=== PATIENT | female | born 1975 | race Caucasian/White ===

== ENCOUNTER 2018-02-16 13:08 | Emergency (ER) | payer OTHER, SELFPAY ==
[2018-02-16 13:24] VITALS: BP 118/74; PULSE 85; RESP 18; TEMP 36.4; O2SAT 98; BMI 20.9
--- NOTE | 2018-02-16 14:51 | ED.NAVMDI ---
HPI - Nausea/Vomiting/Diarrhea <TALIA Beard - Last Filed: 02/16/18 22:09> General Chief complaint: Nausea/Vomiting/Diarrhea Stated complaint: STOMACH PROBLEMS TODAY WITH DIARRHEA Time Seen by Provider: 02/16/18 14:51 Source: patient Mode of arrival: ambulatory Limitations: no limitations History of Present Illness HPI Narrative: 42-year-old female history of anxiety and everyday smoker here for complaint of having diarrhea for the past 5 days. She reports she has also had some left lower quadrant pain and cramping during the same time frame. She denies any fevers. She does state that she did have some bloody mucus in her diarrhea yesterday. She denies any [place] blood. She reports that she knows of other contacts that have similar symptoms. She denies any recent travel. She denies being out in the [facility]. Positive p.o. intake. No nausea or vomiting. She denies any vaginal bleeding or discharge. No other concerns or complaints. Related Data Home Medications Medication Instructions Recorded Confirmed alprazolam [Xanax] 0.5 mg PO Q8HP PRN #0 11/13/12 02/16/18 escitalopram oxalate [Lexapro] 15 mg PO QDAY #0 11/13/12 02/16/18 multivitamin 1 tab PO DAILY 02/16/18 02/16/18 Previous Rx's Medication Instructions Recorded ondansetron 4 mg PO Q6-8H PRN #10 tab 02/16/18 Allergies Allergy/AdvReac Type Severity Reaction Status Date / Time Sulfa (Sulfonamide Allergy Intermediate Hives Verified 02/16/18 13:28 Antibiotics) Review of Systems <TALIA Beard - Last Filed: 02/16/18 22:09> Constitutional Denies chills, Denies fever(s), Denies lethargy and Denies weakness Eyes Denies change in vision, Denies eye discharge, Denies irritation and Denies loss of vision ENT Ears, Nose, Mouth, and Throat: Denies change in voice, Denies neck pain and Denies sore throat Cardiovascular Denies chest pain, Denies irregular heart rhythm, Denies lightheadedness, Denies palpitations, Denies dyspnea, Denies dyspnea on exertion and Denies orthopnea Respiratory Denies cough, Denies dyspnea, Denies dyspnea on exertion and Denies wheezing Gastrointestinal Gastrointestinal: Reports abdominal pain, Denies change in bowel habits, Reports diarrhea, Denies nausea and Denies vomiting Genitourinary Denies hematuria, Denies flank pain, Denies urinary incontinence and Denies urinary urgency Musculoskeletal Denies neck pain Integumentary/Breasts Denies pruritus, Denies erythema, Denies rash and Denies wounds Neurologic Denies confusion, Denies loss of vision and Denies weakness Psychiatric Denies anxiety, Denies confusion, Denies depression, Denies homicidal ideation and Denies suicidal ideation Endocrine Denies palpitations Hematologic/Lymphatic Denies easy bruising Allergic/Immunologic Denies wheezing Exam <TALIA Beard - Last Filed: 02/16/18 22:09> Initial Vital Signs Initial Vital Signs: Vital Signs Temperature 97.5 F L 02/16/18 13:24 Pulse Rate 85 02/16/18 13:24 Respiratory Rate 18 02/16/18 13:24 Blood Pressure 118/74 02/16/18 13:24 Pulse Oximetry 98 02/16/18 13:24 Const General: cooperative and well developed Nutritional Appearance: well nourished Orientation: alert, awake, oriented x3 and not confused [facility] Mouth: oral mucosae normal and moist mucous membranes Eyes Conjunctivae: conjunctivae normal Sclera: sclerae normal Pupils: PERRL EOM: EOM intact bilaterally Resp Effort & Inspection: normal respiratory effort, able to speak in complete sentences, no respiratory distress and no use of accessory muscles Auscultation: clear to auscultation bilaterally, no rales, no rhonchi and no wheezes Cardio Rate: regular rate Rhythm: regular rhythm Heart Sounds: no click, no gallops, no murmurs and no rubs Pulses: normal peripheral pulses GI Inspection: non-distended Palpation: soft, no hepatosplenomegaly, No guarding, No pulsatile mass and tender Auscultation: normal bowel sounds Other: Tenderness to lower abdomen bilaterally left greater than right General: No CVA tenderness Skin General: no rashes or lesions noted, No jaundice and No petechiae Neuro General: alert, oriented x3, gait normal and no focal motor deficits Speech: speech normal <Karina Giordano DO - Last Filed: 02/17/18 09:49> Initial Vital Signs Initial Vital Signs: Vital Signs Temperature 97.5 F L 02/16/18 13:24 Pulse Rate 85 02/16/18 13:24 Respiratory Rate 18 02/16/18 13:24 Blood Pressure 118/74 02/16/18 13:24 Pulse Oximetry 98 02/16/18 13:24 Course <TALIA Beard - Last Filed: 02/16/18 22:09> Orders Ordered: Discontinued Medications Sodium Chloride (Normal Saline 0.9%) 1,000 mls @ 1,000 mls/hr IV BOLUS ONE Stop: 02/16/18 15:35 Last Infusion: 02/16/18 15:43 Dose: 0 mls/hr Admin: 02/16/18 14:55 Dose: 1,000 mls/hr Sodium Chloride (Normal Saline 0.9%) 1,000 mls @ 1,000 mls/hr IV BOLUS ONE Stop: 02/16/18 16:43 Last Infusion: 02/16/18 18:10 Dose: 0 mls/hr Admin: 02/16/18 15:47 Dose: 1,000 mls/hr Ondansetron HCl (Zofran) 4 mg IV NOW ONE Stop: 02/16/18 16:53 Last Admin: 02/16/18 16:56 Dose: 4 mg Vital Signs - 8 hr 02/16/18 15:48 02/16/18 18:30 Temperature 97.9 F Pulse Rate 78 72 Respiratory Rate 16 14 Blood Pressure [Right Arm] 101/61 110/72 Pulse Oximetry 98 99 <Karina Giordano DO - Last Filed: 02/17/18 09:49> Orders Ordered: Discontinued Medications Sodium Chloride (Normal Saline 0.9%) 1,000 mls @ 1,000 mls/hr IV BOLUS ONE Stop: 02/16/18 15:35 Last Infusion: 02/16/18 15:43 Dose: 0 mls/hr Admin: 02/16/18 14:55 Dose: 1,000 mls/hr Sodium Chloride (Normal Saline 0.9%) 1,000 mls @ 1,000 mls/hr IV BOLUS ONE Stop: 02/16/18 16:43 Last Infusion: 02/16/18 18:10 Dose: 0 mls/hr Admin: 02/16/18 15:47 Dose: 1,000 mls/hr Ondansetron HCl (Zofran) 4 mg IV NOW ONE Stop: 02/16/18 16:53 Last Admin: 02/16/18 16:56 Dose: 4 mg Vital Signs - 8 hr 02/16/18 15:48 02/16/18 18:30 Temperature 97.9 F Pulse Rate 78 72 Respiratory Rate 16 14 Blood Pressure [Right Arm] 101/61 110/72 Pulse Oximetry 98 99 MDM - Nausea/Vomiting/Diarrhea <TALIA Beard - Last Filed: 02/16/18 22:09> Lab Data Result diagrams: 02/16/18 14:45 02/16/18 14:45 Lab Results 02/16/18 02/16/18 02/16/18 Range/Units 14:45 14:45 14:45 WBC 11.9 H (4.5-11.0) X10^3/uL RBC 4.58 (4.0-5.2) X10^6/uL Hgb 15.2 (12.0-16.0) g/dL Hct 43.4 (36-46) % MCV 94.6 (80-100) fL MCH 33.1 (26-34) PG MCHC 35.0 (30-36) % RDW 12.8 (11.6-14.8) % Plt Count 181 (150-400) X10^3/uL Neut % (Auto) 81.0 H (50-75) % Lymph % (Auto) 8.3 L (25-40) % [place] % (Auto) 10.0 (3-14) % Eos % (Auto) 0.4 L (2-4) % Baso % (Auto) 0.3 (0-2) % Neut # (Auto) 9600 H (5393-6140) /uL PT 11.7 (10.1-12.7) SECONDS INR 1.1 (0.9-1.3) APTT 27 (26.4-36.2) SECONDS Sodium 142 (137-145) mmol/L Potassium 4.3 (3.4-5.1) mmol/L Chloride 107 (98-107) mmol/L Carbon Dioxide 25 (22-32) mmol/L BUN 7 (7-17) mg/dL Creatinine 0.50 L (0.52-1.04) mg/dL Estimated GFR > 60.0 (>60) mL/min BUN/Creatinine Ratio 14.0 (6-22) Glucose 89 (70-100) mg/dL Calcium 9.5 (8.4-10.2) mg/dL Total Bilirubin 0.5 (0.2-1.3) mg/dL AST 27 (14-36) IU/L ALT 27 (9-52) IU/L Alkaline Phosphatase 59 (38-126) U/L Total Protein 7.1 (6.3-8.2) g/dL Albumin 4.4 (3.5-5.0) g/dL Globulin 2.7 (1.7-4.1) g/dL Albumin/Globulin Ratio 1.6 (1.0-2.8) Lipase 227 (23-300) U/L Stool Occult Blood (Negative) Stool Aeromonas Cult (Not Detect) Stl C. cayetanensis PCR (Not Detect) Stool Rotavirus (PCR) (Not Detect) Stool Adenovirus (PCR) (Not Detect) Stool Astrovirus (PCR) (Not Detect) Stool Cryptosporidium PCR (Not Detect) Stl E.coli Shiga Tox PCR (Not Detect) St Sh/Enteroin Ecoli PCR (Not Detect) Stool E coli O157 PCR (Not Detect) Stl Enterotoxigenic E PCR (Not Detect) Stool EPEC (PCR) (Not Detect) Stl E. histolytica PCR (Not Detect) Stool Giardia Lamblia PCR (Not Detect) Stl P. shigelloides PCR (Not Detect) St Y.enterocolitica PCR (Not Detect) Stool Vibrio (PCR) (Not Detect) Stl Vibrio cholerae PCR (Not Detect) Stl Enteroaggr Ecoli PCR (Not Detect) Stl Norovirus GI/GII PCR (Not Detect) Campylobacter (PCR) (Not Detect) C. difficile Tox (PCR) (Not Detect) Salmonella (PCR) (Not Detect) 02/16/18 02/16/18 Range/Units 15:18 Unknown WBC (4.5-11.0) X10^3/uL RBC (4.0-5.2) X10^6/uL Hgb (12.0-16.0) g/dL Hct (36-46) % MCV (80-100) fL MCH (26-34) PG MCHC (30-36) % RDW (11.6-14.8) % Plt Count (150-400) X10^3/uL Neut % (Auto) (50-75) % Lymph % (Auto) (25-40) % [place] % (Auto) (3-14) % Eos % (Auto) (2-4) % Baso % (Auto) (0-2) % Neut # (Auto) (9218-1825) /uL PT (10.1-12.7) SECONDS INR (0.9-1.3) APTT (26.4-36.2) SECONDS Sodium (137-145) mmol/L Potassium (3.4-5.1) mmol/L Chloride (98-107) mmol/L Carbon Dioxide (22-32) mmol/L BUN (7-17) mg/dL Creatinine (0.52-1.04) mg/dL Estimated GFR (>60) mL/min BUN/Creatinine Ratio (6-22) Glucose (70-100) mg/dL Calcium (8.4-10.2) mg/dL Total Bilirubin (0.2-1.3) mg/dL AST (14-36) IU/L ALT (9-52) IU/L Alkaline Phosphatase (38-126) U/L Total Protein (6.3-8.2) g/dL Albumin (3.5-5.0) g/dL Globulin (1.7-4.1) g/dL Albumin/Globulin Ratio (1.0-2.8) Lipase (23-300) U/L Stool Occult Blood Positive H (Negative) Stool Aeromonas Cult Awaiting culture res (Not Detect) Stl C. cayetanensis PCR Not detected (Not Detect) Stool Rotavirus (PCR) Not detected (Not Detect) Stool Adenovirus (PCR) Not detected (Not Detect) Stool Astrovirus (PCR) Not detected (Not Detect) Stool Cryptosporidium PCR Not detected (Not Detect) Stl E.coli Shiga Tox PCR Not detected (Not Detect) St Sh/Enteroin Ecoli PCR Detected H (Not Detect) Stool E coli O157 PCR Not detected (Not Detect) Stl Enterotoxigenic E PCR Not detected (Not Detect) Stool EPEC (PCR) Not detected (Not Detect) Stl E. histolytica PCR Not detected (Not Detect) Stool Giardia Lamblia PCR Not detected (Not Detect) Stl P. shigelloides PCR Not detected (Not Detect) St Y.enterocolitica PCR Not detected (Not Detect) Stool Vibrio (PCR) Not detected (Not Detect) Stl Vibrio cholerae PCR Not detected (Not Detect) Stl Enteroaggr Ecoli PCR Not detected (Not Detect) Stl Norovirus GI/GII PCR Not detected (Not Detect) Campylobacter (PCR) Not detected (Not Detect) C. difficile Tox (PCR) Not detected (Not Detect) Salmonella (PCR) Not detected (Not Detect) Imaging Data CT scan - abdomen: Radiologist's impression: [place] [address] CT Scan Report Signed Patient: Kaci Sharif MR#: [id number] : 1975 Acct:[id number] Age/Sex: 42 / F Date of Service: 02/16/18 Loc: ED Accession Number: [id number] Procedure: CT abdomen pelvis w con Ordering Provider: Jimmie Craft PROCEDURE: CT ABDOMEN PELVIS W CON INDICATIONS: Pain into lower abdomen left greater than right with diarrhea TECHNIQUE: After the administration of intravenous contrast, 5 mm thick sections acquired from the diaphragm to the symphysis. 5 mm coronal and sagittal reformats were acquired. For radiation dose reduction, the following was used: automated exposure control, adjustment of mA and/or kV according to patient size. COMPARISON: None. FINDINGS: Image quality: Excellent. ABDOMEN: Lung bases: Lung bases are clear. Heart size is normal. Solid organs: Liver is normal in size and enhancement. Gallbladder wall does not appear thickened. Biliary system is non dilated. Pancreas enhances normally. Spleen is normal in size and enhancement. Incidental note is made of an accessory spleen along the anterior aspect of the primary spleen. No adrenal nodules. Kidneys demonstrate normal size and enhancement, without hydronephrosis. Peritoneum and bowel: There is hyperenhancement seen of the majority of the distal colon, with thickening of the colonic hel[place]. Mild surrounding inflammatory changes are seen. No dilated loops of small bowel are seen. No free air can be seen. A mild degree of free pelvic fluid is seen. Nodes and vessels: No retroperitoneal or mesenteric adenopathy by size criteria. Aorta and inferior vena cava are normal in size. Miscellaneous: No ventral hernias. PELVIS: Genitourinary: Bladder wall thickness is normal. Moderate inflammatory changes seen involving the pelvis. The cervix itself appears prominent and enlarged, with hyperenhancement of the uterus. Physiologic cystic changes can be seen of the left ovary. No adnexal masses or fluid collections are seen. Miscellaneous: No inguinal hernias or adenopathy. Bones: No suspicious bony lesions. No vertebral body compression fractures. IMPRESSION: Hyperenhancement and wall thickening can be seen with of the distal colon, which is consistent with the given history of diarrhea and nonspecific colitis. Please correlate with infectious and inflammatory causes. There is apparent enhancement seen of the uterus and cervix, which is likely secondary to colonic inflammation. Dictated by: Oh Macario M.D. on 02/16/2018 at 15:38 Approved by: Oh Macario M.D. on 02/16/2018 at 15:44 [facility] Narrative Medical decision making narrative: CBC shows slight elevated white count. Chem panel was obtained and was unremarkable. lipase was negative.. INR was normal. CT of the abdomen shows signs consistent with colitis of thickening of the hel[place] the distal colon. Hemoccult was positive. Stool panel was obtained and shows that she is positive for Shigella E coli EIEC. She is treated with Zofran for nausea vomiting to encourage good hydration and diet as tolerated. Will have her continue to take [id number] Imodium as needed for the diarrhea. Tylenol as needed for any discomfort. Follow up primary care provider in the next few days for re-evaluation. For any worsening symptoms return to the emergency room. <Karina Giordano, DO - Last Filed: 02/17/18 09:49> Lab Data Lab Results 02/16/18 02/16/18 02/16/18 Range/Units 14:45 14:45 14:45 WBC 11.9 H (4.5-11.0) X10^3/uL RBC 4.58 (4.0-5.2) X10^6/uL Hgb 15.2 (12.0-16.0) g/dL Hct 43.4 (36-46) % MCV 94.6 (80-100) fL MCH 33.1 (26-34) PG MCHC 35.0 (30-36) % RDW 12.8 (11.6-14.8) % Plt Count 181 (150-400) X10^3/uL Neut % (Auto) 81.0 H (50-75) % Lymph % (Auto) 8.3 L (25-40) % [place] % (Auto) 10.0 (3-14) % Eos % (Auto) 0.4 L (2-4) % Baso % (Auto) 0.3 (0-2) % Neut # (Auto) 9600 H (8733-2106) /uL PT 11.7 (10.1-12.7) SECONDS INR 1.1 (0.9-1.3) APTT 27 (26.4-36.2) SECONDS Sodium 142 (137-145) mmol/L Potassium 4.3 (3.4-5.1) mmol/L Chloride 107 (98-107) mmol/L Carbon Dioxide 25 (22-32) mmol/L BUN 7 (7-17) mg/dL Creatinine 0.50 L (0.52-1.04) mg/dL Estimated GFR > 60.0 (>60) mL/min BUN/Creatinine Ratio 14.0 (6-22) Glucose 89 (70-100) mg/dL Calcium 9.5 (8.4-10.2) mg/dL Total Bilirubin 0.5 (0.2-1.3) mg/dL AST 27 (14-36) IU/L ALT 27 (9-52) IU/L Alkaline Phosphatase 59 (38-126) U/L Total Protein 7.1 (6.3-8.2) g/dL Albumin 4.4 (3.5-5.0) g/dL Globulin 2.7 (1.7-4.1) g/dL Albumin/Globulin Ratio 1.6 (1.0-2.8) Lipase 227 (23-300) U/L Stool Occult Blood (Negative) Stool Aeromonas Cult (Not Detect) Stl C. cayetanensis PCR (Not Detect) Stool Rotavirus (PCR) (Not Detect) Stool Adenovirus (PCR) (Not Detect) Stool Astrovirus (PCR) (Not Detect) Stool Cryptosporidium PCR (Not Detect) Stl E.coli Shiga Tox PCR (Not Detect) St Sh/Enteroin Ecoli PCR (Not Detect) Stool E coli O157 PCR (Not Detect) Stl Enterotoxigenic E PCR (Not Detect) Stool EPEC (PCR) (Not Detect) Stl E. histolytica PCR (Not Detect) Stool Giardia Lamblia PCR (Not Detect) Stl P. shigelloides PCR (Not Detect) St Y.enterocolitica PCR (Not Detect) Stool Vibrio (PCR) (Not Detect) Stl Vibrio cholerae PCR (Not Detect) Stl Enteroaggr Ecoli PCR (Not Detect) Stl Norovirus GI/GII PCR (Not Detect) Campylobacter (PCR) (Not Detect) C. difficile Tox (PCR) (Not Detect) Salmonella (PCR) (Not Detect) 02/16/18 02/16/18 Range/Units 15:18 Unknown WBC (4.5-11.0) X10^3/uL RBC (4.0-5.2) X10^6/uL Hgb (12.0-16.0) g/dL Hct (36-46) % MCV (80-100) fL MCH (26-34) PG MCHC (30-36) % RDW (11.6-14.8) % Plt Count (150-400) X10^3/uL Neut % (Auto) (50-75) % Lymph % (Auto) (25-40) % [place] % (Auto) (3-14) % Eos % (Auto) (2-4) % Baso % (Auto) (0-2) % Neut # (Auto) (1260-3365) /uL PT (10.1-12.7) SECONDS INR (0.9-1.3) APTT (26.4-36.2) SECONDS Sodium (137-145) mmol/L Potassium (3.4-5.1) mmol/L Chloride (98-107) mmol/L Carbon Dioxide (22-32) mmol/L BUN (7-17) mg/dL Creatinine (0.52-1.04) mg/dL Estimated GFR (>60) mL/min BUN/Creatinine Ratio (6-22) Glucose (70-100) mg/dL Calcium (8.4-10.2) mg/dL Total Bilirubin (0.2-1.3) mg/dL AST (14-36) IU/L ALT (9-52) IU/L Alkaline Phosphatase (38-126) U/L Total Protein (6.3-8.2) g/dL Albumin (3.5-5.0) g/dL Globulin (1.7-4.1) g/dL Albumin/Globulin Ratio (1.0-2.8) Lipase (23-300) U/L Stool Occult Blood Positive H (Negative) Stool Aeromonas Cult Awaiting culture res (Not Detect) Stl C. cayetanensis PCR Not detected (Not Detect) Stool Rotavirus (PCR) Not detected (Not Detect) Stool Adenovirus (PCR) Not detected (Not Detect) Stool Astrovirus (PCR) Not detected (Not Detect) Stool Cryptosporidium PCR Not detected (Not Detect) Stl E.coli Shiga Tox PCR Not detected (Not Detect) St Sh/Enteroin Ecoli PCR Detected H (Not Detect) Stool E coli O157 PCR Not detected (Not Detect) Stl Enterotoxigenic E PCR Not detected (Not Detect) Stool EPEC (PCR) Not detected (Not Detect) Stl E. histolytica PCR Not detected (Not Detect) Stool Giardia Lamblia PCR Not detected (Not Detect) Stl P. shigelloides PCR Not detected (Not Detect) St Y.enterocolitica PCR Not detected (Not Detect) Stool Vibrio (PCR) Not detected (Not Detect) Stl Vibrio cholerae PCR Not detected (Not Detect) Stl Enteroaggr Ecoli PCR Not detected (Not Detect) Stl Norovirus GI/GII PCR Not detected (Not Detect) Campylobacter (PCR) Not detected (Not Detect) C. difficile Tox (PCR) Not detected (Not Detect) Salmonella (PCR) Not detected (Not Detect) Discharge Plan Departure Patient Disposition: Home Clinical Impression: Colitis, infectious Discharge Date/Time: 02/16/18 18:32 Interventions: ED Discharge Assessment Last Done: 02/16/18 18:31 Instructions: DI for Escherichia Coli Infection Activity Restrictions/Additional Instructions: Laboratory results shows slightly elevated white count and blood in your stool. Laboratory results also show A E coli strain that produces toxins that cause the bleeding and diarrhea. This is typically handled well with supportive care. Use Tylenol as needed for any discomfort. Zofran is prescribed to help with any nausea to facilitate good hydration. Drink plenty of fluids. Diet as tolerated. Use Imodium [id number] as directed for the diarrhea. Follow up with her primary care provider the next few days for re-evaluation. For any worsening symptoms return to the emergency room. Prescriptions: New ondansetron 4 mg tablet,disintegrating 4 mg PO Q6-8H PRN (Reason: nausea and vomiting) Qty: 10 RF: 0 No Action escitalopram oxalate [Lexapro] 10 MG tablet 15 mg PO QDAY Qty: 0 RF: 0 alprazolam [Xanax] 0.5 MG tablet 0.5 mg PO Q8HP PRN (Reason: Anxiety) Qty: 0 RF: 0 multivitamin Tablet 1 tab PO DAILY RF: 0 Referrals: Dimple Bunn PA-C [Non-Staff] - <Karina Giordano DO - Last Filed: 02/17/18 09:49> Cosign ED Attending Nelsonature Attestation: I was immediately available in the department for consultation. Documentation has been reviewed. I agree with assessment and plan.
[2018-02-16] MEDS: SODIUM CHLORIDE 0.9% 1,000 ML 1000 ML IV ×2 (14:55→15:47)
[2018-02-16 14:58] LABS: Add Manual Diff / Slide Review NO; Basophils Percent Auto 0.3 % (0-2); Eosinophils Percent Auto 0.4 % (2-4); Hematocrit 43.4 % (36-46); Hemoglobin 15.2 g/dL (12.0-16.0); Lymphocytes Percent Auto 8.3 % (25-40); Mean Corpuscular Hemoglobin 33.1 PG (26-34); Mean Corpuscular Volume 94.6 fL (80-100); Neutrophils Absolute Auto 9600 /uL (3000-5900); Platelet Count 181 X10^3/uL (150-400); Red Blood Cell Count 4.58 X10^6/uL (4.0-5.2); Red Cell Distribution Width 12.8 % (11.6-14.8); White Blood Cell Count 11.9 X10^3/uL (4.5-11.0)
[2018-02-16 15:19] LABS: INR 1.1 (0.9-1.3); Prothrombin Time 11.7 SECONDS (10.1-12.7)
[2018-02-16 15:22] LABS: PTT Partial Thromboplastin Tim 27 SECONDS (26.4-36.2)
[2018-02-16 15:35] LABS: Alanine Aminotransferase 27 IU/L (9-52); Albumin 4.4 g/dL (3.5-5.0); Albumin Globulin Ratio 1.6 (1.0-2.8); Alkaline Phosphatase 59 U/L (38-126); Aspartate Aminotransferase 27 IU/L (14-36); Bilirubin Total 0.5 mg/dL (0.2-1.3); Blood Urea Nitrogen 7 mg/dL (7-17); Calcium 9.5 mg/dL (8.4-10.2); Carbon Dioxide 25 mmol/L (22-32); Chloride 107 mmol/L (98-107); Estimated Glomerular Filt Rate > 60.0 mL/min (>60); Globulin 2.7 g/dL (1.7-4.1); Glucose 89 mg/dL (70-100); Lipase 227 U/L (23-300); Potassium 4.3 mmol/L (3.4-5.1); Sodium 142 mmol/L (137-145); Total Protein 7.1 g/dL (6.3-8.2)
[2018-02-16 15:41] LABS: HEMOLYSIS 52 (0-50)
[2018-02-16 15:48] VITALS: BP 101/61; PULSE 78; RESP 16; O2SAT 98
--- NOTE | 2018-02-16 16:10 | DI.CT.S_ITS ---
PROCEDURE: CT ABDOMEN PELVIS W CON INDICATIONS: Pain into lower abdomen left greater than right with diarrhea TECHNIQUE: After the administration of intravenous contrast, 5 mm thick sections acquired from the diaphragm to the symphysis. 5 mm coronal and sagittal reformats were acquired. For radiation dose reduction, the following was used: automated exposure control, adjustment of mA and/or kV according to patient size. COMPARISON: None. FINDINGS: Image quality: Excellent. ABDOMEN: Lung bases: Lung bases are clear. Heart size is normal. Solid organs: Liver is normal in size and enhancement. Gallbladder wall does not appear thickened. Biliary system is non dilated. Pancreas enhances normally. Spleen is normal in size and enhancement. Incidental note is made of an accessory spleen along the anterior aspect of the primary spleen. No adrenal nodules. Kidneys demonstrate normal size and enhancement, without hydronephrosis. Peritoneum and bowel: There is hyperenhancement seen of the majority of the distal colon, with thickening of the colonic hel[place]. Mild surrounding inflammatory changes are seen. No dilated loops of small bowel are seen. No free air can be seen. A mild degree of free pelvic fluid is seen. Nodes and vessels: No retroperitoneal or mesenteric adenopathy by size criteria. Aorta and inferior vena cava are normal in size. Miscellaneous: No ventral hernias. PELVIS: Genitourinary: Bladder wall thickness is normal. Moderate inflammatory changes seen involving the pelvis. The cervix itself appears prominent and enlarged, with hyperenhancement of the uterus. Physiologic cystic changes can be seen of the left ovary. No adnexal masses or fluid collections are seen. Miscellaneous: No inguinal hernias or adenopathy. Bones: No suspicious bony lesions. No vertebral body compression fractures. IMPRESSION: Hyperenhancement and wall thickening can be seen with of the distal colon, which is consistent with the given history of diarrhea and nonspecific colitis. Please correlate with infectious and inflammatory causes. There is apparent enhancement seen of the uterus and cervix, which is likely secondary to colonic inflammation. Dictated by: Oh Macario M.D. on 02/16/2018 at 15:38 Approved by: Oh Macario M.D. on 02/16/2018 at 15:44
[2018-02-16] MEDS: ONDANSETRON 4 MG/2 ML INJ IV (16:56)
[2018-02-16 17:05] LABS: Sample 1 Time 1700
[2018-02-16 17:06] LABS: Occult Blood 1 Positive (Negative)
[2018-02-16 17:07] LABS: Campylobacter Not Detected (Not Detect); Clostridium difficile toxin AB Not Detected (Not Detect); Enteroaggregative E.coli Not Detected (Not Detect); Enteropathogenic E.coli Not Detected (Not Detect); Enterotoxigenic E.coli It/st Not Detected (Not Detect); Plesiomonsa shigelloides Not Detected (Not Detect); Salmonella Not Detected (Not Detect); Shiga-like toxin-prod E.coli Not Detected (Not Detect); Vibrio Not Detected (Not Detect); Vibrio cholerae Not Detected (Not Detect); Yersinia enterocolitica Not Detected (Not Detect)
[2018-02-16 17:08] LABS: Adenovirus F 40/41 Not Detected (Not Detect); Astrovirus Not Detected (Not Detect); Cryptosporidium Not Detected (Not Detect); Cyclospora cayetanensis Not Detected (Not Detect); Entamoeba histolytica Not Detected (Not Detect); Giardia lamblia Not Detected (Not Detect); Norovirus GI/GII Not Detected (Not Detect); Rotavirus A Not Detected (Not Detect); Shigella/Enteroinvasive E.coli Detected (Not Detect)
--- NOTE | 2018-02-16 18:14 | ED_ITS ---
HPI - Nausea/Vomiting/Diarrhea <TALIA Beard - Last Filed: 02/16/18 22:09> General Chief complaint: Nausea/Vomiting/Diarrhea Stated complaint: STOMACH PROBLEMS TODAY WITH DIARRHEA Time Seen by Provider: 02/16/18 14:51 Source: patient Mode of arrival: ambulatory Limitations: no limitations History of Present Illness HPI Narrative: 42-year-old female history of anxiety and everyday smoker here for complaint of having diarrhea for the past 5 days. She reports she has also had some left lower quadrant pain and cramping during the same time frame. She denies any fevers. She does state that she did have some bloody mucus in her diarrhea yesterday. She denies any [place] blood. She reports that she knows of other contacts that have similar symptoms. She denies any recent travel. She denies being out in the [facility]. Positive p.o. intake. No nausea or vomiting. She denies any vaginal bleeding or discharge. No other concerns or complaints. Related Data Home Medications Medication Instructions Recorded Confirmed alprazolam [Xanax] 0.5 mg PO Q8HP PRN #0 11/13/12 02/16/18 escitalopram oxalate [Lexapro] 15 mg PO QDAY #0 11/13/12 02/16/18 multivitamin 1 tab PO DAILY 02/16/18 02/16/18 Previous Rx's Medication Instructions Recorded ondansetron 4 mg PO Q6-8H PRN #10 tab 02/16/18 Allergies Allergy/AdvReac Type Severity Reaction Status Date / Time Sulfa (Sulfonamide Allergy Intermediate Hives Verified 02/16/18 13:28 Antibiotics) Review of Systems <TALIA Beard - Last Filed: 02/16/18 22:09> Constitutional Denies chills, Denies fever(s), Denies lethargy and Denies weakness Eyes Denies change in vision, Denies eye discharge, Denies irritation and Denies loss of vision ENT Ears, Nose, Mouth, and Throat: Denies change in voice, Denies neck pain and Denies sore throat Cardiovascular Denies chest pain, Denies irregular heart rhythm, Denies lightheadedness, Denies palpitations, Denies dyspnea, Denies dyspnea on exertion and Denies orthopnea Respiratory Denies cough, Denies dyspnea, Denies dyspnea on exertion and Denies wheezing Gastrointestinal Gastrointestinal: Reports abdominal pain, Denies change in bowel habits, Reports diarrhea, Denies nausea and Denies vomiting Genitourinary Denies hematuria, Denies flank pain, Denies urinary incontinence and Denies urinary urgency Musculoskeletal Denies neck pain Integumentary/Breasts Denies pruritus, Denies erythema, Denies rash and Denies wounds Neurologic Denies confusion, Denies loss of vision and Denies weakness Psychiatric Denies anxiety, Denies confusion, Denies depression, Denies homicidal ideation and Denies suicidal ideation Endocrine Denies palpitations Hematologic/Lymphatic Denies easy bruising Allergic/Immunologic Denies wheezing Exam <TALIA Beard - Last Filed: 02/16/18 22:09> Initial Vital Signs Initial Vital Signs: Vital Signs Temperature 97.5 F L 02/16/18 13:24 Pulse Rate 85 02/16/18 13:24 Respiratory Rate 18 02/16/18 13:24 Blood Pressure 118/74 02/16/18 13:24 Pulse Oximetry 98 02/16/18 13:24 Const General: cooperative and well developed Nutritional Appearance: well nourished Orientation: alert, awake, oriented x3 and not confused [facility] Mouth: oral mucosae normal and moist mucous membranes Eyes Conjunctivae: conjunctivae normal Sclera: sclerae normal Pupils: PERRL EOM: EOM intact bilaterally Resp Effort & Inspection: normal respiratory effort, able to speak in complete sentences, no respiratory distress and no use of accessory muscles Auscultation: clear to auscultation bilaterally, no rales, no rhonchi and no wheezes Cardio Rate: regular rate Rhythm: regular rhythm Heart Sounds: no click, no gallops, no murmurs and no rubs Pulses: normal peripheral pulses GI Inspection: non-distended Palpation: soft, no hepatosplenomegaly, No guarding, No pulsatile mass and tender Auscultation: normal bowel sounds Other: Tenderness to lower abdomen bilaterally left greater than right General: No CVA tenderness Skin General: no rashes or lesions noted, No jaundice and No petechiae Neuro General: alert, oriented x3, gait normal and no focal motor deficits Speech: speech normal <Karina Giordano DO - Last Filed: 02/17/18 09:49> Initial Vital Signs Initial Vital Signs: Vital Signs Temperature 97.5 F L 02/16/18 13:24 Pulse Rate 85 02/16/18 13:24 Respiratory Rate 18 02/16/18 13:24 Blood Pressure 118/74 02/16/18 13:24 Pulse Oximetry 98 02/16/18 13:24 Course <TALIA Beard - Last Filed: 02/16/18 22:09> Orders Ordered: Discontinued Medications Sodium Chloride (Normal Saline 0.9%) 1,000 mls @ 1,000 mls/hr IV BOLUS ONE Stop: 02/16/18 15:35 Last Infusion: 02/16/18 15:43 Dose: 0 mls/hr Admin: 02/16/18 14:55 Dose: 1,000 mls/hr Sodium Chloride (Normal Saline 0.9%) 1,000 mls @ 1,000 mls/hr IV BOLUS ONE Stop: 02/16/18 16:43 Last Infusion: 02/16/18 18:10 Dose: 0 mls/hr Admin: 02/16/18 15:47 Dose: 1,000 mls/hr Ondansetron HCl (Zofran) 4 mg IV NOW ONE Stop: 02/16/18 16:53 Last Admin: 02/16/18 16:56 Dose: 4 mg Vital Signs - 8 hr 02/16/18 15:48 02/16/18 18:30 Temperature 97.9 F Pulse Rate 78 72 Respiratory Rate 16 14 Blood Pressure [Right Arm] 101/61 110/72 Pulse Oximetry 98 99 <Karina Giordano DO - Last Filed: 02/17/18 09:49> Orders Ordered: Discontinued Medications Sodium Chloride (Normal Saline 0.9%) 1,000 mls @ 1,000 mls/hr IV BOLUS ONE Stop: 02/16/18 15:35 Last Infusion: 02/16/18 15:43 Dose: 0 mls/hr Admin: 02/16/18 14:55 Dose: 1,000 mls/hr Sodium Chloride (Normal Saline 0.9%) 1,000 mls @ 1,000 mls/hr IV BOLUS ONE Stop: 02/16/18 16:43 Last Infusion: 02/16/18 18:10 Dose: 0 mls/hr Admin: 02/16/18 15:47 Dose: 1,000 mls/hr Ondansetron HCl (Zofran) 4 mg IV NOW ONE Stop: 02/16/18 16:53 Last Admin: 02/16/18 16:56 Dose: 4 mg Vital Signs - 8 hr 02/16/18 15:48 02/16/18 18:30 Temperature 97.9 F Pulse Rate 78 72 Respiratory Rate 16 14 Blood Pressure [Right Arm] 101/61 110/72 Pulse Oximetry 98 99 MDM - Nausea/Vomiting/Diarrhea <TALIA Beard - Last Filed: 02/16/18 22:09> Lab Data Result diagrams: 02/16/18 14:45 02/16/18 14:45 Lab Results 02/16/18 02/16/18 02/16/18 Range/Units 14:45 14:45 14:45 WBC 11.9 H (4.5-11.0) X10^3/uL RBC 4.58 (4.0-5.2) X10^6/uL Hgb 15.2 (12.0-16.0) g/dL Hct 43.4 (36-46) % MCV 94.6 (80-100) fL MCH 33.1 (26-34) PG MCHC 35.0 (30-36) % RDW 12.8 (11.6-14.8) % Plt Count 181 (150-400) X10^3/uL Neut % (Auto) 81.0 H (50-75) % Lymph % (Auto) 8.3 L (25-40) % Pratt % (Auto) 10.0 (3-14) % Eos % (Auto) 0.4 L (2-4) % Baso % (Auto) 0.3 (0-2) % Neut # (Auto) 9600 H (0039-7772) /uL PT 11.7 (10.1-12.7) SECONDS INR 1.1 (0.9-1.3) APTT 27 (26.4-36.2) SECONDS Sodium 142 (137-145) mmol/L Potassium 4.3 (3.4-5.1) mmol/L Chloride 107 (98-107) mmol/L Carbon Dioxide 25 (22-32) mmol/L BUN 7 (7-17) mg/dL Creatinine 0.50 L (0.52-1.04) mg/dL Estimated GFR > 60.0 (>60) mL/min BUN/Creatinine Ratio 14.0 (6-22) Glucose 89 (70-100) mg/dL Calcium 9.5 (8.4-10.2) mg/dL Total Bilirubin 0.5 (0.2-1.3) mg/dL AST 27 (14-36) IU/L ALT 27 (9-52) IU/L Alkaline Phosphatase 59 (38-126) U/L Total Protein 7.1 (6.3-8.2) g/dL Albumin 4.4 (3.5-5.0) g/dL Globulin 2.7 (1.7-4.1) g/dL Albumin/Globulin Ratio 1.6 (1.0-2.8) Lipase 227 (23-300) U/L Stool Occult Blood (Negative) Stool Aeromonas Cult (Not Detect) Stl C. cayetanensis PCR (Not Detect) Stool Rotavirus (PCR) (Not Detect) Stool Adenovirus (PCR) (Not Detect) Stool Astrovirus (PCR) (Not Detect) Stool Cryptosporidium PCR (Not Detect) Stl E.coli Shiga Tox PCR (Not Detect) St Sh/Enteroin Ecoli PCR (Not Detect) Stool E coli O157 PCR (Not Detect) Stl Enterotoxigenic E PCR (Not Detect) Stool EPEC (PCR) (Not Detect) Stl E. histolytica PCR (Not Detect) Stool Giardia Lamblia PCR (Not Detect) Stl P. shigelloides PCR (Not Detect) St Y.enterocolitica PCR (Not Detect) Stool Vibrio (PCR) (Not Detect) Stl Vibrio cholerae PCR (Not Detect) Stl Enteroaggr Ecoli PCR (Not Detect) Stl Norovirus GI/GII PCR (Not Detect) Campylobacter (PCR) (Not Detect) C. difficile Tox (PCR) (Not Detect) Salmonella (PCR) (Not Detect) 02/16/18 02/16/18 Range/Units 15:18 Unknown WBC (4.5-11.0) X10^3/uL RBC (4.0-5.2) X10^6/uL Hgb (12.0-16.0) g/dL Hct (36-46) % MCV (80-100) fL MCH (26-34) PG MCHC (30-36) % RDW (11.6-14.8) % Plt Count (150-400) X10^3/uL Neut % (Auto) (50-75) % Lymph % (Auto) (25-40) % Pratt % (Auto) (3-14) % Eos % (Auto) (2-4) % Baso % (Auto) (0-2) % Neut # (Auto) (0972-3529) /uL PT (10.1-12.7) SECONDS INR (0.9-1.3) APTT (26.4-36.2) SECONDS Sodium (137-145) mmol/L Potassium (3.4-5.1) mmol/L Chloride (98-107) mmol/L Carbon Dioxide (22-32) mmol/L BUN (7-17) mg/dL Creatinine (0.52-1.04) mg/dL Estimated GFR (>60) mL/min BUN/Creatinine Ratio (6-22) Glucose (70-100) mg/dL Calcium (8.4-10.2) mg/dL Total Bilirubin (0.2-1.3) mg/dL AST (14-36) IU/L ALT (9-52) IU/L Alkaline Phosphatase (38-126) U/L Total Protein (6.3-8.2) g/dL Albumin (3.5-5.0) g/dL Globulin (1.7-4.1) g/dL Albumin/Globulin Ratio (1.0-2.8) Lipase (23-300) U/L Stool Occult Blood Positive H (Negative) Stool Aeromonas Cult Awaiting culture res (Not Detect) Stl C. cayetanensis PCR Not detected (Not Detect) Stool Rotavirus (PCR) Not detected (Not Detect) Stool Adenovirus (PCR) Not detected (Not Detect) Stool Astrovirus (PCR) Not detected (Not Detect) Stool Cryptosporidium PCR Not detected (Not Detect) Stl E.coli Shiga Tox PCR Not detected (Not Detect) St Sh/Enteroin Ecoli PCR Detected H (Not Detect) Stool E coli O157 PCR Not detected (Not Detect) Stl Enterotoxigenic E PCR Not detected (Not Detect) Stool EPEC (PCR) Not detected (Not Detect) Stl E. histolytica PCR Not detected (Not Detect) Stool Giardia Lamblia PCR Not detected (Not Detect) Stl P. shigelloides PCR Not detected (Not Detect) St Y.enterocolitica PCR Not detected (Not Detect) Stool Vibrio (PCR) Not detected (Not Detect) Stl Vibrio cholerae PCR Not detected (Not Detect) Stl Enteroaggr Ecoli PCR Not detected (Not Detect) Stl Norovirus GI/GII PCR Not detected (Not Detect) Campylobacter (PCR) Not detected (Not Detect) C. difficile Tox (PCR) Not detected (Not Detect) Salmonella (PCR) Not detected (Not Detect) Imaging Data CT scan - abdomen: Radiologist's impression: [place] [address] CT Scan Report Signed Patient: Kaci Sharif MR#: [id number] : 1975 Acct:[id number] Age/Sex: 42 / F Date of Service: 02/16/18 Loc: ED Accession Number: [id number] Procedure: CT abdomen pelvis w con Ordering Provider: Jimmie Craft PROCEDURE: CT ABDOMEN PELVIS W CON INDICATIONS: Pain into lower abdomen left greater than right with diarrhea TECHNIQUE: After the administration of intravenous contrast, 5 mm thick sections acquired from the diaphragm to the symphysis. 5 mm coronal and sagittal reformats were acquired. For radiation dose reduction, the following was used: automated exposure control, adjustment of mA and/or kV according to patient size. COMPARISON: None. FINDINGS: Image quality: Excellent. ABDOMEN: Lung bases: Lung bases are clear. Heart size is normal. Solid organs: Liver is normal in size and enhancement. Gallbladder wall does not appear thickened. Biliary system is non dilated. Pancreas enhances normally. Spleen is normal in size and enhancement. Incidental note is made of an accessory spleen along the anterior aspect of the primary spleen. No adrenal nodules. Kidneys demonstrate normal size and enhancement, without hydronephrosis. Peritoneum and bowel: There is hyperenhancement seen of the majority of the distal colon, with thickening of the colonic hel[place]. Mild surrounding inflammatory changes are seen. No dilated loops of small bowel are seen. No free air can be seen. A mild degree of free pelvic fluid is seen. Nodes and vessels: No retroperitoneal or mesenteric adenopathy by size criteria. Aorta and inferior vena cava are normal in size. Miscellaneous: No ventral hernias. PELVIS: Genitourinary: Bladder wall thickness is normal. Moderate inflammatory changes seen involving the pelvis. The cervix itself appears prominent and enlarged, with hyperenhancement of the uterus. Physiologic cystic changes can be seen of the left ovary. No adnexal masses or fluid collections are seen. Miscellaneous: No inguinal hernias or adenopathy. Bones: No suspicious bony lesions. No vertebral body compression fractures. IMPRESSION: Hyperenhancement and wall thickening can be seen with of the distal colon, which is consistent with the given history of diarrhea and nonspecific colitis. Please correlate with infectious and inflammatory causes. There is apparent enhancement seen of the uterus and cervix, which is likely secondary to colonic inflammation. Dictated by: Oh Macario M.D. on 02/16/2018 at 15:38 Approved by: Oh Macario M.D. on 02/16/2018 at 15:44 [facility] Narrative Medical decision making narrative: CBC shows slight elevated white count. Chem panel was obtained and was unremarkable. lipase was negative.. INR was normal. CT of the abdomen shows signs consistent with colitis of thickening of the helton the distal colon. Hemoccult was positive. Stool panel was obtained and shows that she is positive for Shigella E coli EIEC. She is treated with Zofran for nausea vomiting to encourage good hydration and diet as tolerated. Will have her continue to take [id number] Imodium as needed for the diarrhea. Tylenol as needed for any discomfort. Follow up primary care provider in the next few days for re-evaluation. For any worsening symptoms return to the emergency room. <Karina Giordano, DO - Last Filed: 02/17/18 09:49> Lab Data Lab Results 02/16/18 02/16/18 02/16/18 Range/Units 14:45 14:45 14:45 WBC 11.9 H (4.5-11.0) X10^3/uL RBC 4.58 (4.0-5.2) X10^6/uL Hgb 15.2 (12.0-16.0) g/dL Hct 43.4 (36-46) % MCV 94.6 (80-100) fL MCH 33.1 (26-34) PG MCHC 35.0 (30-36) % RDW 12.8 (11.6-14.8) % Plt Count 181 (150-400) X10^3/uL Neut % (Auto) 81.0 H (50-75) % Lymph % (Auto) 8.3 L (25-40) % Pratt % (Auto) 10.0 (3-14) % Eos % (Auto) 0.4 L (2-4) % Baso % (Auto) 0.3 (0-2) % Neut # (Auto) 9600 H (5046-3750) /uL PT 11.7 (10.1-12.7) SECONDS INR 1.1 (0.9-1.3) APTT 27 (26.4-36.2) SECONDS Sodium 142 (137-145) mmol/L Potassium 4.3 (3.4-5.1) mmol/L Chloride 107 (98-107) mmol/L Carbon Dioxide 25 (22-32) mmol/L BUN 7 (7-17) mg/dL Creatinine 0.50 L (0.52-1.04) mg/dL Estimated GFR > 60.0 (>60) mL/min BUN/Creatinine Ratio 14.0 (6-22) Glucose 89 (70-100) mg/dL Calcium 9.5 (8.4-10.2) mg/dL Total Bilirubin 0.5 (0.2-1.3) mg/dL AST 27 (14-36) IU/L ALT 27 (9-52) IU/L Alkaline Phosphatase 59 (38-126) U/L Total Protein 7.1 (6.3-8.2) g/dL Albumin 4.4 (3.5-5.0) g/dL Globulin 2.7 (1.7-4.1) g/dL Albumin/Globulin Ratio 1.6 (1.0-2.8) Lipase 227 (23-300) U/L Stool Occult Blood (Negative) Stool Aeromonas Cult (Not Detect) Stl C. cayetanensis PCR (Not Detect) Stool Rotavirus (PCR) (Not Detect) Stool Adenovirus (PCR) (Not Detect) Stool Astrovirus (PCR) (Not Detect) Stool Cryptosporidium PCR (Not Detect) Stl E.coli Shiga Tox PCR (Not Detect) St Sh/Enteroin Ecoli PCR (Not Detect) Stool E coli O157 PCR (Not Detect) Stl Enterotoxigenic E PCR (Not Detect) Stool EPEC (PCR) (Not Detect) Stl E. histolytica PCR (Not Detect) Stool Giardia Lamblia PCR (Not Detect) Stl P. shigelloides PCR (Not Detect) St Y.enterocolitica PCR (Not Detect) Stool Vibrio (PCR) (Not Detect) Stl Vibrio cholerae PCR (Not Detect) Stl Enteroaggr Ecoli PCR (Not Detect) Stl Norovirus GI/GII PCR (Not Detect) Campylobacter (PCR) (Not Detect) C. difficile Tox (PCR) (Not Detect) Salmonella (PCR) (Not Detect) 02/16/18 02/16/18 Range/Units 15:18 Unknown WBC (4.5-11.0) X10^3/uL RBC (4.0-5.2) X10^6/uL Hgb (12.0-16.0) g/dL Hct (36-46) % MCV (80-100) fL MCH (26-34) PG MCHC (30-36) % RDW (11.6-14.8) % Plt Count (150-400) X10^3/uL Neut % (Auto) (50-75) % Lymph % (Auto) (25-40) % Pratt % (Auto) (3-14) % Eos % (Auto) (2-4) % Baso % (Auto) (0-2) % Neut # (Auto) (4619-6600) /uL PT (10.1-12.7) SECONDS INR (0.9-1.3) APTT (26.4-36.2) SECONDS Sodium (137-145) mmol/L Potassium (3.4-5.1) mmol/L Chloride (98-107) mmol/L Carbon Dioxide (22-32) mmol/L BUN (7-17) mg/dL Creatinine (0.52-1.04) mg/dL Estimated GFR (>60) mL/min BUN/Creatinine Ratio (6-22) Glucose (70-100) mg/dL Calcium (8.4-10.2) mg/dL Total Bilirubin (0.2-1.3) mg/dL AST (14-36) IU/L ALT (9-52) IU/L Alkaline Phosphatase (38-126) U/L Total Protein (6.3-8.2) g/dL Albumin (3.5-5.0) g/dL Globulin (1.7-4.1) g/dL Albumin/Globulin Ratio (1.0-2.8) Lipase (23-300) U/L Stool Occult Blood Positive H (Negative) Stool Aeromonas Cult Awaiting culture res (Not Detect) Stl C. cayetanensis PCR Not detected (Not Detect) Stool Rotavirus (PCR) Not detected (Not Detect) Stool Adenovirus (PCR) Not detected (Not Detect) Stool Astrovirus (PCR) Not detected (Not Detect) Stool Cryptosporidium PCR Not detected (Not Detect) Stl E.coli Shiga Tox PCR Not detected (Not Detect) St Sh/Enteroin Ecoli PCR Detected H (Not Detect) Stool E coli O157 PCR Not detected (Not Detect) Stl Enterotoxigenic E PCR Not detected (Not Detect) Stool EPEC (PCR) Not detected (Not Detect) Stl E. histolytica PCR Not detected (Not Detect) Stool Giardia Lamblia PCR Not detected (Not Detect) Stl P. shigelloides PCR Not detected (Not Detect) St Y.enterocolitica PCR Not detected (Not Detect) Stool Vibrio (PCR) Not detected (Not Detect) Stl Vibrio cholerae PCR Not detected (Not Detect) Stl Enteroaggr Ecoli PCR Not detected (Not Detect) Stl Norovirus GI/GII PCR Not detected (Not Detect) Campylobacter (PCR) Not detected (Not Detect) C. difficile Tox (PCR) Not detected (Not Detect) Salmonella (PCR) Not detected (Not Detect) Discharge Plan Departure Patient Disposition: Home Clinical Impression: Colitis, infectious Discharge Date/Time: 02/16/18 18:32 Interventions: ED Discharge Assessment Last Done: 02/16/18 18:31 Instructions: DI for Escherichia Coli Infection Activity Restrictions/Additional Instructions: Laboratory results shows slightly elevated white count and blood in your stool. Laboratory results also show A E coli strain that produces toxins that cause the bleeding and diarrhea. This is typically handled well with supportive care. Use Tylenol as needed for any discomfort. Zofran is prescribed to help with any nausea to facilitate good hydration. Drink plenty of fluids. Diet as tolerated. Use Imodium [id number] as directed for the diarrhea. Follow up with her primary care provider the next few days for re-evaluation. For any worsening symptoms return to the emergency room. Prescriptions: New ondansetron 4 mg tablet,disintegrating 4 mg PO Q6-8H PRN (Reason: nausea and vomiting) Qty: 10 RF: 0 No Action escitalopram oxalate [Lexapro] 10 MG tablet 15 mg PO QDAY Qty: 0 RF: 0 alprazolam [Xanax] 0.5 MG tablet 0.5 mg PO Q8HP PRN (Reason: Anxiety) Qty: 0 RF: 0 multivitamin Tablet 1 tab PO DAILY RF: 0 Referrals: Dimple Bunn PA-C [Non-Staff] - <Karina Giordano DO - Last Filed: 02/17/18 09:49> Cosign ED Attending Nelsonature Attestation: I was immediately available in the department for consultation. Documentation has been reviewed. I agree with assessment and plan.
[2018-02-16 18:30] VITALS: BP 110/72; PULSE 72; RESP 14; TEMP 36.6; O2SAT 99
== END 2018-02-16 18:32 | disposition home or self-care (01) ==
PROVIDERS: Emergency Provider Nurse Practitioner Family
DX: A09 Infectious gastroenteritis and colitis, unspecified (principal)
CPT/HCPCS: 36591; 74177; 80053; 81003; 81025; 82270; 83690; 85025; 85610; 85730; 87507; 96361; 96374; 99283; 99284; J2405; Q9967

== ENCOUNTER 2018-06-09 05:26 | Emergency (ER) | payer OTHER, SELFPAY ==
[2018-06-09 05:56] VITALS: BP 141/86; PULSE 59; RESP 18; TEMP 36.4; O2SAT 99
[2018-06-09] MEDS: ONDANSETRON 4 MG/2 ML INJ IV (06:11)
[2018-06-09] MEDS: SODIUM CHLORIDE 0.9% 1,000 ML 1000 ML IV ×2 (06:12→07:22)
--- NOTE | 2018-06-09 06:56 | ED.ABDPAIN ---
HPI - Abdominal Pain General Chief Complaint: Abdominal Pain Stated Complaint: vomiting since 11 am yesterday Time Seen by Provider: 06/09/18 06:56 Source: patient Mode of arrival: ambulatory Limitations: no limitations History of Present Illness HPI narrative: Patient is a 43-year-old female who presents with vomiting and diarrhea. 1 of her children had the same. She started throwing up yesterday around 11:00 a.m. she did take a Zofran she said did not help. Then got worse about 4:30 a.m.. She is not vomiting blood feels like he burning in her stomach. Scant amount of diarrhea, just not able to keep anything down. She denies fever or chills MD complaint: abdominal pain Onset (ago): day(s) (1) Location: diffuse Quality: burning Radiation: epigastric Relieving factors: nothing Exacerbating factors: nothing and vomiting Related Data Home Medications Medication Instructions Recorded Confirmed alprazolam [Xanax] 0.5 mg PO Q8HP PRN #0 11/13/12 02/16/18 escitalopram oxalate [Lexapro] 15 mg PO QDAY #0 11/13/12 02/16/18 multivitamin 1 tab PO DAILY 02/16/18 02/16/18 Previous Rx's Medication Instructions Recorded ondansetron 4 mg PO Q6-8H PRN #10 tab 02/16/18 metoclopramide HCl [Reglan] 5 mg PO Q6HR PRN #10 tab 06/09/18 ondansetron 4 mg PO Q6-8H PRN #10 tab 06/09/18 Allergies Allergy/AdvReac Type Severity Reaction Status Date / Time Sulfa (Sulfonamide Allergy Intermediate Hives Verified 06/09/18 06:00 Antibiotics) Review of Systems Review of Systems GENERAL: Denies chills, fatigue, malaise, fever, sweats, travel HEENT: Denies sinus pain, ear pain, sore throat, difficulty swallowing, neck pain RESPIRATORY: Denies dyspnea, cough, wheezing, hemoptysis, sputum. CARDIOVASCULAR: Denies chest pain, palpitations, orthopnea, edema GASTROINTESTINAL: See HPI : Denies dysuria, frequency, incontinence, hematuria, urinary retention, flank pain. MUSCULOSKELETAL: Denies weakness, joint pain, or bony pain SKIN: No rash, no erythema, no pruritus NEUROLOGIC: Denies weakness, dizziness, headache, numbness, change in speech, confusion PSYCHIATRIC: No concerning psychosocial issues. 12 point review of systems is negative except for those stated above and HPI [facility] Medical History Anxiety (Acute) Surgical History History of (Acute) History of tonsillectomy (Acute) Social History Smoking Status: Current every day smoker Exam Initial Vital Signs Initial Vital Signs: Vital Signs Temperature 97.6 F 06/09/18 05:56 Pulse Rate 59 L 06/09/18 05:56 Respiratory Rate 18 06/09/18 05:56 Blood Pressure 141/86 H 06/09/18 05:56 Pulse Oximetry 99 06/09/18 05:56 GENERAL: Appears uncomfortable no active dry heaving crawled in position HEENT: Head atraumatic,EOMI, pupils reactive, dry mucous membrane CARDIOVASCULAR: Regular rate and rhythm without murmurs, rubs or gallops. RESPIRATORY: Breath sounds equal bilaterally, no wheezes rales or rhonchi. ABDOMEN: Soft, nontender. Normoactive bowel sounds all 4 quadrants. No guarding or rebound. : No CVA tenderness EXTREMITIES: Normal range of motion, no clubbing or edema. Neurovascularly intact NEUROLOGICAL: Alert and oriented x4.Normal gait and speech. SKIN: Warm, dry, no laceration, no petechiae, no rashes or lesions. Course Orders Ordered: ED Orders 06/09/18 06:00 Complete Blood Count AUTO DIFF Stat Comprehensive Metabolic Panel Stat Lipase Stat 06/09/18 08:25 Urine Microscopic Stat Sodium Chloride (Normal Saline 0.9%) 1,000 mls @ 1,000 mls/hr IV CONT ZOFIA Last Admin: 06/09/18 07:22 Dose: 1,000 mls/hr Discontinued Medications Sodium Chloride (Normal Saline 0.9%) 1,000 mls @ 1,000 mls/hr IV BOLUS ONE Stop: 06/09/18 07:10 Last Infusion: 06/09/18 07:23 Dose: 0 mls/hr Admin: 06/09/18 06:12 Dose: 1,000 mls/hr Ketorolac Tromethamine (Toradol) 30 mg IV NOW ONE Stop: 06/09/18 06:59 Last Admin: 06/09/18 07:15 Dose: 30 mg Metoclopramide HCl (Reglan) 10 mg IV NOW ONE Stop: 06/09/18 06:59 Last Admin: 06/09/18 07:16 Dose: 10 mg Ondansetron HCl (Zofran) 4 mg IV NOW ONE Stop: 06/09/18 06:09 Last Admin: 06/09/18 06:11 Dose: 4 mg Pantoprazole Sodium (Protonix) 40 mg IV NOW ONE Stop: 06/09/18 06:59 Last Admin: 06/09/18 07:16 Dose: 40 mg Vital Signs - 8 hr 06/09/18 05:56 06/09/18 08:00 06/09/18 08:12 Temperature 97.6 F Pulse Rate 59 L 74 64 Respiratory Rate 18 16 15 Blood Pressure 141/86 H Blood Pressure [Right Arm] 117/63 146/78 H Pulse Oximetry 99 95 99 MDM - Abdominal Pain Lab Data Attestation: I reviewed the patient's lab results. Result diagrams: 06/09/18 06:00 06/09/18 06:00 Lab Results 06/09/18 06/09/18 06/09/18 Range/Units 06:00 06:00 08:25 WBC 15.2 H (4.5-11.0) X10^3/uL RBC 5.14 (4.0-5.2) X10^6/uL Hgb 16.6 H (12.0-16.0) g/dL Hct 49.9 H (36-46) % MCV 97.0 (80-100) fL MCH 32.2 (26-34) PG MCHC 33.2 (30-36) % RDW 13.1 (11.6-14.8) % Plt Count 226 (150-400) X10^3/uL Neut % (Auto) 91.1 H (50-75) % Lymph % (Auto) 4.1 L (25-40) % Hunt % (Auto) 4.6 (3-14) % Eos % (Auto) 0.0 L (2-4) % Baso % (Auto) 0.2 (0-2) % Neut # (Auto) 40021 H (2377-7425) /uL Sodium 140 (137-145) mmol/L Potassium 3.7 (3.4-5.1) mmol/L Chloride 101 (98-107) mmol/L Carbon Dioxide 23 (22-32) mmol/L BUN 14 (7-17) mg/dL Creatinine 0.60 (0.52-1.04) mg/dL Estimated GFR > 60.0 (>60) mL/min BUN/Creatinine Ratio 23.3 H (6-22) Glucose 242 H (70-100) mg/dL Calcium 9.9 (8.4-10.2) mg/dL Total Bilirubin 0.8 (0.2-1.3) mg/dL AST 44 H (14-36) IU/L ALT 41 (9-52) IU/L Alkaline Phosphatase 73 (38-126) U/L Total Protein 7.8 (6.3-8.2) g/dL Albumin 5.0 (3.5-5.0) g/dL Globulin 2.8 (1.7-4.1) g/dL Albumin/Globulin Ratio 1.8 (1.0-2.8) Lipase 67 (23-300) U/L Urine RBC 0-1/hpf (0-5/HPF) Urine WBC 1-5/hpf (0-5/HPF) Ur Squamous Epith Cells 0-1 /hpf Urine Bacteria Moderate (10-30) H (None) Ur Culture Indicated? Specimen cultured Micro UA Comment Not Reportable Point of care testing: Point of Care Testing Test Results Negative Urine Dip Bedside Urine Glucose 250 mg/dl Bedside Urine Bilirubin - Negative Bedside Urine Ketone +++ 80 Urine Specific [place] 1.015 Bedside Urine Occult Blood +/- Bedside Urine pH 7.0 Bedside Urine Protein - Negative Bedside Urine Urobilinogen - Negative Bedside Urine Nitrite - Negative Bedside Urine Leukocytes - Negative Esterase Discharge Plan Departure Patient Disposition: Home Clinical Impression: Gastroenteritis Interventions: ED Discharge Assessment Last Done: 06/09/18 08:38 Instructions: DI for Viral Gastroenteritis -- Adult Activity Restrictions/Additional Instructions: 1) You have been diagnosed with gastroenteritis 2) What to do: Drink frequent but small amounts of fluids. I recommend Gatorade or a Gatorade-like product, as it has small amounts of sugar and salts that improve fluid retention. 3) Take medications as directed -Zofran 4 mg every 6-8 hours as needed for nausea or vomiting Reglan 5 mg every 6 hr if needed for nausea or vomiting 4) Follow up with your primary care provider in 2-3 days 5) Return to ER if you should have any new or worsening symptoms such as, unable to hold down fluids despite use of anti-nausea medications and the small volume oral rehydration strategy. Prescriptions: New ondansetron 4 mg tablet,disintegrating 4 mg PO Q6-8H PRN (Reason: nausea and vomiting) Qty: 10 RF: 0 metoclopramide HCl [Reglan] 5 mg tablet 5 mg PO Q6HR PRN (Reason: nausea and vomiting) Qty: 10 RF: 0 No Action escitalopram oxalate [Lexapro] 10 MG tablet 15 mg PO QDAY Qty: 0 RF: 0 alprazolam [Xanax] 0.5 MG tablet 0.5 mg PO Q8HP PRN (Reason: Anxiety) Qty: 0 RF: 0 multivitamin Tablet 1 tab PO DAILY RF: 0 ondansetron 4 mg tablet,disintegrating 4 mg PO Q6-8H PRN (Reason: nausea and vomiting) Qty: 10 RF: 0
[2018-06-09] MEDS: KETOROLAC 60 MG/2 ML VIAL 30 MG IV (07:15)
[2018-06-09] MEDS: PANTOPRAZOLE 40 MG VIAL IV (07:16)
[2018-06-09] MEDS: METOCLOPRAMIDE 10 MG/2 ML INJ IV (07:16)
--- NOTE | 2018-06-09 07:27 | PC.NURSE ---
in ER. pt ns infusing at this time. reassured.
[2018-06-09 07:59] LABS: Add Manual Diff / Slide Review NO; Basophils Percent Auto 0.2 % (0-2); Hematocrit 49.9 % (36-46); Hemoglobin 16.6 g/dL (12.0-16.0); Lymphocytes Percent Auto 4.1 % (25-40); Mean Corpuscular HGB Conc 33.2 % (30-36); Mean Corpuscular Hemoglobin 32.2 PG (26-34); Monocytes Percent Auto 4.6 % (3-14); Neutrophils Absolute Auto 13900 /uL (1500-7000); Neutrophils Percent Auto 91.1 % (50-75); Platelet Count 226 X10^3/uL (150-400); Red Blood Cell Count 5.14 X10^6/uL (4.0-5.2); Red Cell Distribution Width 13.1 % (11.6-14.8); White Blood Cell Count 15.2 X10^3/uL (4.5-11.0)
[2018-06-09 08:00] VITALS: BP 117/63; PULSE 74; RESP 16; O2SAT 95
[2018-06-09 08:05] LABS: Alanine Aminotransferase 41 IU/L (9-52); Albumin Globulin Ratio 1.8 (1.0-2.8); Alkaline Phosphatase 73 U/L (38-126); Aspartate Aminotransferase 44 IU/L (14-36); BUN Creatinine Ratio 23.3 (6-22); Bilirubin Total 0.8 mg/dL (0.2-1.3); Blood Urea Nitrogen 14 mg/dL (7-17); Calcium 9.9 mg/dL (8.4-10.2); Carbon Dioxide 23 mmol/L (22-32); Chloride 101 mmol/L (98-107); Estimated Glomerular Filt Rate > 60.0 mL/min (>60); Globulin 2.8 g/dL (1.7-4.1); Glucose 242 mg/dL (70-100); HEMOLYSIS < 15 (0-50); Lipase 67 U/L (23-300); Potassium 3.7 mmol/L (3.4-5.1); Sodium 140 mmol/L (137-145); Total Protein 7.8 g/dL (6.3-8.2)
[2018-06-09 08:12] VITALS: BP 146/78; PULSE 64; RESP 15; O2SAT 99
[2018-06-09 08:38] LABS: Bacteria Urine Moderate (10-30); Culture Indicated Urine Specimen Cultured; RBC Urine 0-1/HPF (0-5/HPF); Squamous Epithelial Cell Urine 0-1 /HPF; WBC Urine 1-5/HPF (0-5/HPF)
== END 2018-06-09 08:39 | disposition home or self-care (01) ==
PROVIDERS: Emergency Provider Emergency Medicine
DX: K52.9 Noninfective gastroenteritis and colitis, unspecified (principal)
CPT/HCPCS: 80053; 81003; 81015; 81025; 83690; 85025; 87086; 96361; 96374; 96375; 99283; 99284; C9113; J1885; J2405; J2765

== ENCOUNTER 2018-11-18 01:11 | Emergency (ER) | payer OTHER, SELFPAY ==
[2018-11-18 01:20] VITALS: BP 142/49; PULSE 72; RESP 20; TEMP 36.1; O2SAT 98; BMI 22.4
--- NOTE | 2018-11-18 01:38 | ED.HA ---
HPI - Headache General Chief Complaint: Headache Stated Complaint: Mirgaine Time Seen by Provider: 11/18/18 01:32 Source: patient Mode of arrival: ambulatory Limitations: no limitations History of Present Illness HPI Narrative: Patient is a 43-year-old female who presents with headache and vomiting ongoing for the last 3 days. It has progressively gotten worse this evening. It is mostly behind her right eye across her forehead and also across her right head. She now has been throwing up nonstop everything makes her headache worse. She has a history of migraines but only as a child but not for a number of years. This is fairly atypical for her. She denies any fever or neck pain. Actively vomiting now. No numbness or tingling in her extremities. No facial or speech difficulty. She says this headache she woke up with it. MD Complaint: migraine Onset (ago): day(s) Quality: sharp and constant Relieving factors: nothing Exacerbating factors: light, noise and rest Context: occurred at rest Related Data Home Medications Medication Instructions Recorded Confirmed alprazolam [Xanax] 0.5 mg PO Q8HP PRN #0 11/13/12 02/16/18 escitalopram oxalate [Lexapro] 15 mg PO QDAY #0 11/13/12 02/16/18 multivitamin 1 tab PO DAILY 02/16/18 02/16/18 Previous Rx's Medication Instructions Recorded ondansetron 4 mg PO Q6-8H PRN #10 tab 02/16/18 metoclopramide HCl [Reglan] 5 mg PO Q6HR PRN #10 tab 06/09/18 ondansetron 4 mg PO Q6-8H PRN #10 tab 06/09/18 Allergies Allergy/AdvReac Type Severity Reaction Status Date / Time Sulfa (Sulfonamide Allergy Intermediate Hives Verified 06/09/18 06:00 Antibiotics) Review of Systems Review of Systems ROS Unobtainable: All systems reviewed & are unremarkable except as noted in HPI and below Constitutional Denies chills, Denies fever(s), Reports headache(s), Denies lethargy and Denies weakness Eyes Denies change in vision, Denies eye discharge, Denies irritation and Denies loss of vision ENT Ears, Nose, Mouth, and Throat: Denies change in voice, Reports headache(s), Denies neck pain and Denies sore throat Cardiovascular Denies chest pain, Denies irregular heart rhythm, Denies lightheadedness, Denies palpitations, Denies dyspnea, Denies dyspnea on exertion and Denies orthopnea Respiratory Denies cough, Denies dyspnea, Denies dyspnea on exertion and Denies wheezing Gastrointestinal Gastrointestinal: Denies abdominal pain, Denies change in bowel habits, Denies diarrhea, Reports nausea and Reports vomiting Genitourinary Denies hematuria, Denies flank pain, Denies urinary incontinence and Denies urinary urgency Musculoskeletal Denies neck pain Integumentary/Breasts Denies pruritus, Denies erythema, Denies rash and Denies wounds Neurologic Reports headache(s), Denies loss of vision and Denies weakness Endocrine Denies palpitations Allergic/Immunologic Denies wheezing [facility] Medical History Anxiety (Acute) Surgical History History of (Acute) History of tonsillectomy (Acute) Social History Smoking Status: Current every day smoker Social History Smoking Status: Current every day smoker Exam Initial Vital Signs Initial Vital Signs: Vital Signs Temperature 97 F L 11/18/18 01:20 Pulse Rate 72 11/18/18 01:20 Respiratory Rate 20 11/18/18 01:20 Blood Pressure 142/49 H 11/18/18 01:20 Pulse Oximetry 98 11/18/18 01:20 GENERAL: Sitting up vomiting appears in pain in dark room HEENT: Head atraumatic,EOMI, pupils reactive, face symmetric, dry mucous membranes NECK: Supple no vertebral tenderness CARDIOVASCULAR: Regular rate and rhythm without murmurs, rubs or gallops. RESPIRATORY: Breath sounds equal bilaterally, no wheezes rales or rhonchi. ABDOMEN: Soft, nontender. Normoactive bowel sounds all 4 quadrants. No guarding or rebound. EXTREMITIES: Normal range of motion, no clubbing or edema. Neurovascularly intact NEUROLOGICAL: Alert and oriented x4.Normal gait and speech. Cranial nerves II through XII grossly intact. Athletic Scout strength equal bilaterally sensation intact SKIN: Warm, dry, no laceration, no petechiae, no rashes or lesions. Course Orders Ordered: ED Orders 11/18/18 02:07 CT head/brain wo con Stat Discontinued Medications Diphenhydramine HCl (Benadryl) 25 mg IV NOW ONE Stop: 11/18/18 01:43 Last Admin: 11/18/18 01:49 Dose: 25 mg Sodium Chloride (Normal Saline 0.9%) 1,000 mls @ 1,000 mls/hr IV BOLUS ONE Stop: 11/18/18 02:41 Last Infusion: 11/18/18 03:54 Dose: 1,000 mls/hr Admin: 11/18/18 01:49 Dose: 1,000 mls/hr Ketorolac Tromethamine (Toradol) 30 mg IV NOW ONE Stop: 11/18/18 01:43 Last Admin: 11/18/18 01:50 Dose: 30 mg Prochlorperazine (Compazine) 10 mg IV NOW ONE Stop: 11/18/18 01:43 Last Admin: 11/18/18 01:50 Dose: 10 mg Vital Signs - 8 hr 11/18/18 01:20 11/18/18 01:50 11/18/18 02:24 Temperature 97 F L Pulse Rate 72 72 72 Respiratory Rate 20 18 Blood Pressure 142/49 H 142/49 H Blood Pressure [Left Arm] 112/54 L Pulse Oximetry 98 98 11/18/18 03:55 Temperature Pulse Rate 76 Respiratory Rate 16 Blood Pressure 123/66 Blood Pressure [Left Arm] Pulse Oximetry 98 [facility] - Headache Imaging Data CT scan - head: 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 [facility] Narrative Medical decision making narrative: The patient sleeping after Compazine and Benadryl. Pain overall much improved. She has no focal deficits. History of migraines but not for some time. This seems to be the worst [address] was done. CT is negative. Patient much improved after migraine cocktail and IV fluids. Discharge Plan Departure Patient Disposition: Home Clinical Impression: Migraine Qualifiers: Migraine type: unspecified Status migrainosus presence: without status migrainosus Intractability: not intractable Qualified Code(s): G43.909 - Migraine, unspecified, not intractable, without status migrainosus Discharge Date/Time: 11/18/18 03:55 Interventions: ED Discharge Assessment Last Done: 11/18/18 03:55 Instructions: DI for Migraine Activity Restrictions/Additional Instructions: *You have been diagnosed with migraine headache *What to do: Rest, increase fluid intake tolerated. CT tonight was negative. *Continue to take medications as directed *Follow up with your primary care provider in 2-3 days *Return to ER if you should have worsening headache persistent vomiting or any new, worsening or concerning symptoms Prescriptions: No Action escitalopram oxalate [Lexapro] 10 MG tablet 15 mg PO QDAY Qty: 0 RF: 0 alprazolam [Xanax] 0.5 MG tablet 0.5 mg PO Q8HP PRN (Reason: Anxiety) Qty: 0 RF: 0 multivitamin Tablet 1 tab PO DAILY RF: 0 ondansetron 4 mg tablet,disintegrating 4 mg PO Q6-8H PRN (Reason: nausea and vomiting) Qty: 10 RF: 0 ondansetron 4 mg tablet,disintegrating 4 mg PO Q6-8H PRN (Reason: nausea and vomiting) Qty: 10 RF: 0 metoclopramide HCl [Reglan] 5 mg tablet 5 mg PO Q6HR PRN (Reason: nausea and vomiting) Qty: 10 RF: 0 Referrals: [facility] [Provider Group]
[2018-11-18] MEDS: SODIUM CHLORIDE 0.9% 1,000 ML 1000 ML IV (01:49)
[2018-11-18] MEDS: diphenhydrAMINE 50 MG/ML VIAL 25 MG IV (01:49)
[2018-11-18 01:50] VITALS: BP 142/49; PULSE 72
[2018-11-18] MEDS: PROCHLORPERAZINE 10 MG/2 ML VIAL IV (01:50)
[2018-11-18] MEDS: KETOROLAC 60 MG/2 ML VIAL 30 MG IV (01:50)
--- NOTE | 2018-11-18 02:07 | ED_ITS ---
HPI - Headache General Chief Complaint: Headache Stated Complaint: Mirgaine Time Seen by Provider: 11/18/18 01:32 Source: patient Mode of arrival: ambulatory Limitations: no limitations History of Present Illness HPI Narrative: Patient is a 43-year-old female who presents with headache and vomiting ongoing for the last 3 days. It has progressively gotten worse this evening. It is mostly behind her right eye across her forehead and also across her right head. She now has been throwing up nonstop everything makes her headache worse. She has a history of migraines but only as a child but not for a number of years. This is fairly atypical for her. She denies any fever or neck pain. Actively vomiting now. No numbness or tingling in her extremities. No facial or speech difficulty. She says this headache she woke up with it. MD Complaint: migraine Onset (ago): day(s) Quality: sharp and constant Relieving factors: nothing Exacerbating factors: light, noise and rest Context: occurred at rest Related Data Home Medications Medication Instructions Recorded Confirmed alprazolam [Xanax] 0.5 mg PO Q8HP PRN #0 11/13/12 02/16/18 escitalopram oxalate [Lexapro] 15 mg PO QDAY #0 11/13/12 02/16/18 multivitamin 1 tab PO DAILY 02/16/18 02/16/18 Previous Rx's Medication Instructions Recorded ondansetron 4 mg PO Q6-8H PRN #10 tab 02/16/18 metoclopramide HCl [Reglan] 5 mg PO Q6HR PRN #10 tab 06/09/18 ondansetron 4 mg PO Q6-8H PRN #10 tab 06/09/18 Allergies Allergy/AdvReac Type Severity Reaction Status Date / Time Sulfa (Sulfonamide Allergy Intermediate Hives Verified 06/09/18 06:00 Antibiotics) Review of Systems Review of Systems ROS Unobtainable: All systems reviewed & are unremarkable except as noted in HPI and below Constitutional Denies chills, Denies fever(s), Reports headache(s), Denies lethargy and Denies weakness Eyes Denies change in vision, Denies eye discharge, Denies irritation and Denies loss of vision ENT Ears, Nose, Mouth, and Throat: Denies change in voice, Reports headache(s), Denies neck pain and Denies sore throat Cardiovascular Denies chest pain, Denies irregular heart rhythm, Denies lightheadedness, Denies palpitations, Denies dyspnea, Denies dyspnea on exertion and Denies orthopnea Respiratory Denies cough, Denies dyspnea, Denies dyspnea on exertion and Denies wheezing Gastrointestinal Gastrointestinal: Denies abdominal pain, Denies change in bowel habits, Denies diarrhea, Reports nausea and Reports vomiting Genitourinary Denies hematuria, Denies flank pain, Denies urinary incontinence and Denies urinary urgency Musculoskeletal Denies neck pain Integumentary/Breasts Denies pruritus, Denies erythema, Denies rash and Denies wounds Neurologic Reports headache(s), Denies loss of vision and Denies weakness Endocrine Denies palpitations Allergic/Immunologic Denies wheezing [facility] Medical History Anxiety (Acute) Surgical History History of (Acute) History of tonsillectomy (Acute) Social History Smoking Status: Current every day smoker Social History Smoking Status: Current every day smoker Exam Initial Vital Signs Initial Vital Signs: Vital Signs Temperature 97 F L 11/18/18 01:20 Pulse Rate 72 11/18/18 01:20 Respiratory Rate 20 11/18/18 01:20 Blood Pressure 142/49 H 11/18/18 01:20 Pulse Oximetry 98 11/18/18 01:20 GENERAL: Sitting up vomiting appears in pain in dark room HEENT: Head atraumatic,EOMI, pupils reactive, face symmetric, dry mucous membranes NECK: Supple no vertebral tenderness CARDIOVASCULAR: Regular rate and rhythm without murmurs, rubs or gallops. RESPIRATORY: Breath sounds equal bilaterally, no wheezes rales or rhonchi. ABDOMEN: Soft, nontender. Normoactive bowel sounds all 4 quadrants. No guarding or rebound. EXTREMITIES: Normal range of motion, no clubbing or edema. Neurovascularly intact NEUROLOGICAL: Alert and oriented x4.Normal gait and speech. Cranial nerves II through XII grossly intact. Spike Machine Heater strength equal bilaterally sensation intact SKIN: Warm, dry, no laceration, no petechiae, no rashes or lesions. Course Orders Ordered: ED Orders 11/18/18 02:07 CT head/brain wo con Stat Discontinued Medications Diphenhydramine HCl (Benadryl) 25 mg IV NOW ONE Stop: 11/18/18 01:43 Last Admin: 11/18/18 01:49 Dose: 25 mg Sodium Chloride (Normal Saline 0.9%) 1,000 mls @ 1,000 mls/hr IV BOLUS ONE Stop: 11/18/18 02:41 Last Infusion: 11/18/18 03:54 Dose: 1,000 mls/hr Admin: 11/18/18 01:49 Dose: 1,000 mls/hr Ketorolac Tromethamine (Toradol) 30 mg IV NOW ONE Stop: 11/18/18 01:43 Last Admin: 11/18/18 01:50 Dose: 30 mg Prochlorperazine (Compazine) 10 mg IV NOW ONE Stop: 11/18/18 01:43 Last Admin: 11/18/18 01:50 Dose: 10 mg Vital Signs - 8 hr 11/18/18 01:20 11/18/18 01:50 11/18/18 02:24 Temperature 97 F L Pulse Rate 72 72 72 Respiratory Rate 20 18 Blood Pressure 142/49 H 142/49 H Blood Pressure [Left Arm] 112/54 L Pulse Oximetry 98 98 11/18/18 03:55 Temperature Pulse Rate 76 Respiratory Rate 16 Blood Pressure 123/66 Blood Pressure [Left Arm] Pulse Oximetry 98 [facility] - Headache Imaging Data CT scan - head: 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 [facility] Narrative Medical decision making narrative: The patient sleeping after Compazine and Benadryl. Pain overall much improved. She has no focal deficits. History of migraines but not for some time. This seems to be the worst [address] was done. CT is negative. Patient much improved after migraine cocktail and IV fluids. Discharge Plan Departure Patient Disposition: Home Clinical Impression: Migraine Qualifiers: Migraine type: unspecified Status migrainosus presence: without status migrainosus Intractability: not intractable Qualified Code(s): G43.909 - Migraine, unspecified, not intractable, without status migrainosus Discharge Date/Time: 11/18/18 03:55 Interventions: ED Discharge Assessment Last Done: 11/18/18 03:55 Instructions: DI for Migraine Activity Restrictions/Additional Instructions: *You have been diagnosed with migraine headache *What to do: Rest, increase fluid intake tolerated. CT tonight was negative. *Continue to take medications as directed *Follow up with your primary care provider in 2-3 days *Return to ER if you should have worsening headache persistent vomiting or any new, worsening or concerning symptoms Prescriptions: No Action escitalopram oxalate [Lexapro] 10 MG tablet 15 mg PO QDAY Qty: 0 RF: 0 alprazolam [Xanax] 0.5 MG tablet 0.5 mg PO Q8HP PRN (Reason: Anxiety) Qty: 0 RF: 0 multivitamin Tablet 1 tab PO DAILY RF: 0 ondansetron 4 mg tablet,disintegrating 4 mg PO Q6-8H PRN (Reason: nausea and vomiting) Qty: 10 RF: 0 ondansetron 4 mg tablet,disintegrating 4 mg PO Q6-8H PRN (Reason: nausea and vomiting) Qty: 10 RF: 0 metoclopramide HCl [Reglan] 5 mg tablet 5 mg PO Q6HR PRN (Reason: nausea and vomiting) Qty: 10 RF: 0 Referrals: [facility] [Provider Group]
--- NOTE | 2018-11-18 02:07 | DI.CT.S_ITS ---
PROCEDURE: CT HEAD/BRAIN WO CON INDICATIONS: worst headache TECHNIQUE: Noncontrast 4.5 mm thick angled axial sections acquired from the foramen magnum to the vertex, with coronal and sagittal reformats. For radiation dose reduction, the following was used: automated exposure control, adjustment of mA and/or kV according to patient size. COMPARISON: None. FINDINGS: Image quality: Excellent. CSF spaces: Basal cisterns are patent. No extra-axial fluid collections. Ventricles are normal in size and shape. Brain: No midline shift. No intracranial masses or hemorrhage. Nolen-white matter interface is normal. Skull and face: Calvarium and visualized facial bones are intact, without suspicious lesions. Sinuses: Visualized sinuses and mastoids are clear. IMPRESSION: No acute intracranial disease process. Dictated by: Trini Beltrán MD, PhD on 11/18/2018 at 7:30 Approved by: Trini Beltrán MD, PhD on 11/18/2018 at 7:31
[2018-11-18 02:24] VITALS: BP 112/54; PULSE 72; RESP 18; O2SAT 98
[2018-11-18 03:55] VITALS: BP 123/66; PULSE 76; RESP 16; O2SAT 98
== END 2018-11-18 03:55 | disposition home or self-care (01) ==
PROVIDERS: Emergency Provider Emergency Medicine
DX: G43.909 Migraine, unspecified, not intractable, without status migrainosus (principal); R11.2 Nausea with vomiting, unspecified
CPT/HCPCS: 70450; 96361; 96374; 96375; 99283; 99284; J0780; J1200; J1885

== ENCOUNTER 2019-06-02 17:18 | Emergency (ER) | payer OTHER, SELFPAY ==
[2019-06-02 17:20] VITALS: BP 129/76; PULSE 81; RESP 20; TEMP 36.9; O2SAT 99
[2019-06-02] MEDS: ONDANSETRON 4 MG ODT PO (18:10)
--- NOTE | 2019-06-02 18:34 | ED.NAVMDI ---
HPI - Nausea/Vomiting/Diarrhea General Chief complaint: Nausea/Vomiting/Diarrhea Stated complaint: nausea from medication , anxiety Time Seen by Provider: 06/02/19 17:58 Source: patient Mode of arrival: Ambulatory Limitations: no limitations History of Present Illness HPI Narrative: 43-year-old female with a history of anxiety. At the end of last week she started taking propanolol that was prescribed to her by her mental health provider. This was in order to wean her off the Xanax that she has been using. She states that she feels like she has been tolerating the propanolol well. Has not had any lightheadedness however since taking the medication she has noticed some nausea. No vomiting. She is unsure whether not this is the propanolol that is causing this where the anxiety. She did take a Xanax yesterday which seemed to help her symptoms. She did miss her therapy appointment because she states that she fell asleep at home. She has another appointment scheduled for next Friday. Related Data Home Medications Medication Instructions Recorded Confirmed alprazolam [Xanax] 0.5 mg PO Q8HP PRN #0 11/13/12 02/16/18 multivitamin 1 tab PO DAILY 02/16/18 02/16/18 escitalopram oxalate 20 mg PO DAILY 06/02/19 06/02/19 Previous Rx's Medication Instructions Recorded metoclopramide HCl [Reglan] 5 mg PO Q6HR PRN #10 tab 06/09/18 ondansetron 4 mg PO Q6H PRN #10 tab 06/02/19 Allergies Allergy/AdvReac Type Severity Reaction Status Date / Time Sulfa (Sulfonamide Allergy Intermediate Hives Verified 06/09/18 06:00 Antibiotics) Review of Systems Constitutional Constitutional: Denies fever(s) Cardiovascular Cardiovascular: Denies chest pain and Denies dyspnea Respiratory Respiratory: Denies dyspnea Gastrointestinal Gastrointestinal: Reports abdominal pain, Denies change in stool character, Reports nausea and Denies vomiting Genitourinary Genitourinary: Denies dysuria Musculoskeletal Musculoskeletal: Denies myalgias and Denies arthralgias Integumentary/Breasts Skin/Breast: Denies lesions and Denies rash Neurologic Neurologic: Denies behavioral changes Psychiatric Psychiatric: Denies behavioral changes Hematologic/Lymphatic Hematologic/Lymphatic: Denies easy bleeding and Denies easy bruising Patient History Medical History Anxiety (Acute) Social History Smoking Status: Current every day smoker Smoking Status: Current every day smoker alcohol intake frequency: holidays/special occasions only Substance Use Type: marijuana Exam Initial Vital Signs Initial Vital Signs: Vital Signs Temperature 98.4 F 06/02/19 17:20 Pulse Rate 81 06/02/19 17:20 Respiratory Rate 20 06/02/19 17:20 Blood Pressure 129/76 06/02/19 17:20 Pulse Oximetry 99 06/02/19 17:20 Const General: cooperative, healthy appearing and comfortable Resp Effort & Inspection: normal respiratory effort Cardio Rate: regular rate Skin Lesions: no lesions Rashes: no rashes Neuro General: alert, awake and oriented x3 Cognition: normal cognition Speech: speech normal Sensory Exam: no sensory deficits noted Extrem General: normal to inspection and capillary refill normal Psych Appearance: grossly normal and well kempt Course Orders Ordered: Discontinued Medications Ondansetron HCl (Zofran Odt) 4 mg PO NOW ONE Stop: 06/02/19 17:44 Last Admin: 06/02/19 18:10 Dose: 4 mg Documented by: YASMINE Vital Signs Vital signs: Vital Signs - 8 hr 06/02/19 17:20 06/02/19 19:04 Temperature 98.4 F Pulse Rate 81 70 Respiratory Rate 20 12 Blood Pressure 129/76 Blood Pressure [Left Arm] 111/78 Pulse Oximetry 99 98 MDM - Nausea/Vomiting/Diarrhea Lab Data Labs: Point of Care Testing Test Results Negative Urine Dip Bedside Urine Glucose Negative Bedside Urine Bilirubin - Negative Bedside Urine Ketone + 15 Urine Specific [place] 1.015 Bedside Urine Occult Blood +/- Bedside Urine pH 6.0 Bedside Urine Protein - Negative Bedside Urine Urobilinogen - Negative Bedside Urine Nitrite - Negative Bedside Urine Leukocytes - Negative Esterase MDM Narrative Medical decision making narrative: Nontoxic appearing. Does report resolution of her nausea after the Zofran. Does have slight epigastric discomfort. She states that her anxiety is somewhat controlled. Had a long discussion regarding her medications. Informed her that I'm unsure whether not her symptoms are caused by the propanolol or the anxiety. She agrees with this. Plan abuse for however to stop propanolol for the next couple days and take her Xanax which she already has. She is going to talk with her mental health provider next Friday to see if she should try the propanolol again. She was given return precautions. Given prescription for Zofran. She expressed understanding and agreement plan. Discharge Plan Departure Patient Disposition: Home Clinical Impression: Nausea Discharge Date/Time: 06/02/19 19:06 Instructions: DI for Nausea -- Adult Activity Restrictions/Additional Instructions: Recommend that you stop the propanolol like we discussed. Take your Xanax as directed. Keep all of your scheduled medical appointments. Use the nausea medication as needed and as directed. Return to the emergency department for any new or worsening symptoms Prescriptions: New ondansetron 4 mg tablet,disintegrating 4 mg PO Q6H PRN (Reason: nausea and vomiting) Qty: 10 RF: 0 No Action alprazolam [Xanax] 0.5 MG tablet 0.5 mg PO Q8HP PRN (Reason: Anxiety) Qty: 0 RF: 0 multivitamin Tablet 1 tab PO DAILY RF: 0 metoclopramide HCl [Reglan] 5 mg tablet 5 mg PO Q6HR PRN (Reason: nausea and vomiting) Qty: 10 RF: 0 escitalopram oxalate 20 mg tablet 20 mg PO DAILY RF: 0
[2019-06-02 19:04] VITALS: BP 111/78; PULSE 70; RESP 12; O2SAT 98
== END 2019-06-02 19:06 | disposition home or self-care (01) ==
PROVIDERS: Emergency Provider Emergency Medicine
DX: R11.0 Nausea (principal); F41.9 Anxiety disorder, unspecified
CPT/HCPCS: 81003; 81025; 99283

== ENCOUNTER → 2020-05-01 13:33 | Outpatient (CLI) | payer OTHER, SELFPAY ==
--- NOTE | 2020-05-01 | DI.MG.S_ITS ---
BILATERAL DIGITAL DIAGNOSTIC MAMMOGRAM 3D/2D: 05/01/2020 CLINICAL: Left mass. Baseline. Comparison is made to exam dated: 04/07/2020 ultrasound - outside location. The tissue of both breasts is heterogeneously dense. This may lower the sensitivity of mammography. There is a 2.5 cm oval mass with a circumscribed margin in the left breast at 6 o'clock anterior depth. This correlates with ultrasound findings. No other significant masses, calcifications, or other findings are seen in either breast. IMPRESSION: BENIGN The 2.5 cm oval mass in the left breast is consistent with a cyst and is benign. There is no mammographic evidence of malignancy. A 1 year screening mammogram is recommended. This exam was interpreted at Station ID: [id number]. NOTE: For mammograms, a report in lay terms will be sent to the patient. Approximately 15% of breast malignancies will not be visualized mammographically. In the management of a palpable breast mass, a negative mammogram must not discourage biopsy of a clinically suspicious lesion. Electronically Signed By: Kulwinder louie/delores:05/01/2020 14:31:42 letter sent: Normal Exam ACR BI-RADS Category 2: Benign Finding(s) 3342F
== END ==
PROVIDERS: PCP Nurse Practitioner Family; Referring Provider Nurse Practitioner Family; Visit Provider Nurse Practitioner Family
DX: N63.25 Unspecified lump in the left breast, overlapping quadrants (principal)
CPT/HCPCS: 77066; G0279

== ENCOUNTER → 2020-11-21 11:35 | Outpatient (CLI) | payer OTHER, SELFPAY ==
[2020-11-21 12:15] LABS: Hematocrit 47.1 % (36-46); Hemoglobin 15.6 g/dL (12.0-16.0); Mean Corpuscular HGB Conc 33.2 % (30-36); Mean Corpuscular Hemoglobin 31.9 PG (26-34); Mean Corpuscular Volume 96.1 fL (80-100); Platelet Count 248 X10^3/uL (150-400); White Blood Cell Count 8.7 X10^3/uL (4.5-11.0)
[2020-11-21 12:33] LABS: Alanine Aminotransferase 24 IU/L (<35); Albumin 4.6 g/dL (3.5-5.0); Albumin Globulin Ratio 1.4 (1.0-2.8); Alkaline Phosphatase 86 U/L (38-126); Aspartate Aminotransferase 38 IU/L (14-36); BUN Creatinine Ratio 26.5 (6-22); Bilirubin Total 0.4 mg/dL (0.2-1.3); Blood Urea Nitrogen 18 mg/dL (7-17); Calcium 9.6 mg/dL (8.4-10.2); Carbon Dioxide 27 mmol/L (22-32); Chloride 104 mmol/L (98-107); Cholesterol 264 mg/dL (140-199); Estimated Glomerular Filt Rate > 60.0 mL/min (>60); Globulin 3.2 g/dL (1.7-4.1); Glucose 101 mg/dL (70-100); HDL Cholesterol 58 mg/dL (40-60); HEMOLYSIS 17 (0-50); LDL Cholesterol Calculated 192 mg/dL (<100); Potassium 4.4 mmol/L (3.4-5.1); Sodium 138 mmol/L (137-145); Total Protein 7.8 g/dL (6.3-8.2); Triglycerides 70 mg/dL (35-150)
[2020-11-21 13:15] LABS: TSH w/ Reflex to FT4 1.09 uIU/mL (0.47-4.68)
[2020-11-21 19:05] LABS: Vitamin D 25 Hydroxy (D3) 44.5 ng/mL (30.0-100.0)
[2020-11-21 19:12] LABS: Follicle Stimulating Hormone 5.86 mIU/mL
[2020-11-21 19:28] LABS: Estradiol, Total 79.7 pg/mL
== END ==
PROVIDERS: PCP Registered Nurse Diabetes Educator; Referring Provider Registered Nurse Diabetes Educator; Visit Provider Registered Nurse Diabetes Educator
DX: Z00.00 Encounter for general adult medical examination without abnormal findings (principal); F41.9 Anxiety disorder, unspecified
CPT/HCPCS: 36415; 80053; 80061; 82306; 82670; 83001; 83002; 84443; 85027

== ENCOUNTER → 2020-12-20 12:51 | Outpatient (CLI) | payer OTHER, SELFPAY ==
--- NOTE | 2020-12-20 12:52 | DI.US.S_ITS ---
PROCEDURE: US PELVIC COMPLETE INDICATIONS: LEFT PELVIC PAIN DURING MENSES TECHNIQUE: Real-time scanning was performed of the pelvic organs, with image documentation. Additional endovaginal scanning was necessary due to incomplete visualization of the adnexal and endometrial structures by transabdominal scanning. COMPARISON: None. FINDINGS: Uterus: Uterus is anteverted and normal in size at 4.2 x 5.7 x 9.3 cm. The endometrium measures lung 0.6 mm in combined thickness. Ovaries: Right ovary measures 1.6 x 2.5 x 2.9 cm and the left measures 2.0 x 2.7 x 3.4 cm. There is a simple cyst measuring up to 1.9 cm at the left ovary seen by transabdominal scanning only. Other: No pathologic free abdominal or pelvic fluid. IMPRESSION: No endometrial or myometrial lesion is seen. Incidental note is made of a 1.9 cm maximal dimension simple appearing left ovarian cyst. Dictated by: Mega Nunez M.D. on 12/20/2020 at 15:39 Approved by: Mega Nunez M.D. on 12/20/2020 at 15:40
== END ==
PROVIDERS: PCP Registered Nurse Diabetes Educator; Referring Provider Registered Nurse Diabetes Educator; Visit Provider Registered Nurse Diabetes Educator
DX: R10.2 Pelvic and perineal pain (principal); N83.292 Other ovarian cyst, left side
CPT/HCPCS: 76830; 76856

== ENCOUNTER → 2020-12-28 12:55 | Outpatient (CLI) | payer OTHER, SELFPAY ==
--- NOTE | 2020-12-28 13:01 | DIET.PN ---
Dietary Progress Note Assessment: 45y F attending nutrition visit for help with HLD, fatty liver, elevated FBG, and covid related weight gain, attending with spouse, Fabrice. 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 Pt has two children ages 12 and 16, daughter was interested in baking during pandemic and pt devoured the results leading to 20# weight gain. Pt is not breakfast eater, wakes has coffee a few hours later eats yogurt- Yoplait light then does not eat again until dinner Pt reports considerable evening snacking- doughnuts, ding dongs, honey buns... does meal planning meatloaf c mashed potatoes and gravy, hot dogs, burgers, food, rice c gravy, red beans and rice traditionally but has changed recently to leaner meats, less carbs so choices like salmon, turkey, chicken c veggies and cauliflower rice. Pt has no current structured physical activity but plans to purchase elliptical machine. HT: 5' WT: 139# UBW: usually 110-120# BMI:27.1 (overweight) Labs:FBG 101 H, TC 264 H, LDL 192 H, HDL 58 WNL, AST 38 H Nutrition Diagnosis: altered nutrition related laboratory values r/t undesirable food choices and nutrition related knowledge deficit aeb FBG 101 H, TC 264 H, LDL 192 H, HDL 58 WNL, AST 38 H, pt reports unstructured eating with high intake refined carbohydrates before bed. Interventions: 1. Discussed new health conditions in context of recent weight gain and global pandemic. Encouraged pt to make a few smart changes to lifestyle rather than trying to get too strict and reverting to old habits. 2. Discussed MNT for high cholesterol including limiting intake of animal fats and high cholesterol foods and increasing intake soluble fiber foods. Provided education reinforced with handouts for pt and spouse, with collaboration on meal ideas and questions answered. 3. Discussed role of recent weight gain due to inactivity, high intake ultraprocessed sweets on cholesterol, elevated FBG, and fatty liver. Pt has stopped eating those items and is purchasing elliptical machine to use 20 minutes per day, 5 days per week. Diet Order: Heart Healthy/High Fiber Diet EER: 30g Fiber daily focus on soluble fiber Monitoring/Evaluations: f/u in 4mo to assess progress and problem solve barriers.
== END ==
PROVIDERS: PCP Registered Nurse Diabetes Educator; Referring Provider Registered Nurse Diabetes Educator; Visit Provider Registered Nurse Diabetes Educator
DX: E78.5 Hyperlipidemia, unspecified (principal); K76.0 Fatty (change of) liver, not elsewhere classified; R73.9 Hyperglycemia, unspecified; Z71.3 Dietary counseling and surveillance; Z68.27 Body mass index [BMI] 27.0-27.9, adult
CPT/HCPCS: 97802

== ENCOUNTER → 2021-04-30 12:50 | Outpatient (CLI) | payer OTHER, SELFPAY ==
[2021-04-30 14:39] LABS: Hemoglobin A1C% w Est Avg Glu 4.9 % (4.0-6.0)
[2021-04-30 15:15] LABS: Alanine Aminotransferase 54 IU/L (<35); Albumin 4.4 g/dL (3.5-5.0); Albumin Globulin Ratio 1.7 (1.0-2.8); Alkaline Phosphatase 79 U/L (38-126); Aspartate Aminotransferase 38 IU/L (14-36); Bilirubin Total 0.4 mg/dL (0.2-1.3); Bilirubin Unconjugated 0.3 mg/dL (0.0-1.1); Cholesterol 223 mg/dL (140-199); Globulin 2.6 g/dL (1.7-4.1); Glucose 90 mg/dL (70-100); HDL Cholesterol 57 mg/dL (40-60); HEMOLYSIS < 15 (0-50); LDL Cholesterol Calculated 153 mg/dL (<100); Triglycerides 66 mg/dL (35-150)
== END ==
PROVIDERS: PCP Registered Nurse Diabetes Educator; Referring Provider Registered Nurse Diabetes Educator; Visit Provider Registered Nurse Diabetes Educator
DX: E78.5 Hyperlipidemia, unspecified (principal); R10.2 Pelvic and perineal pain; R73.01 Impaired fasting glucose; R74.8 Abnormal levels of other serum enzymes
CPT/HCPCS: 36415; 80061; 80076; 82947; 83036

== ENCOUNTER → 2021-05-01 13:35 | Outpatient (CLI) | payer OTHER, SELFPAY ==
[2021-05-01 14:50] LABS: HEMOLYSIS < 15 (0-50); Iron 110 ug/dL (37-170)
[2021-05-01 15:02] LABS: Percent Iron Saturation 35 % (15-50); Total Iron Binding Capacity 311 ug/dL (265-497); Transferrin 238 mg/dL (206-381)
[2021-05-01 16:36] LABS: Ferritin 21 ng/mL (6-137)
[2021-05-01 18:12] LABS: Hepatitis B Surface Antigen NEGATIVE s/c (NEGATIVE)
[2021-05-01 18:20] LABS: Hep C Virus Ab w/Reflex Quant NEGATIVE s/c (NEGATIVE)
[2021-05-02 06:34] LABS: Hepatitis B Core AB w/Reflex Negative (Negative)
== END ==
PROVIDERS: PCP Registered Nurse Diabetes Educator; Referring Provider Registered Nurse Diabetes Educator; Visit Provider Registered Nurse Diabetes Educator
DX: R74.8 Abnormal levels of other serum enzymes (principal)
CPT/HCPCS: 36415; 82728; 83540; 83550; 86704; 86803; 87340

== ENCOUNTER 2021-05-01 17:04 | Emergency (ER) | payer OTHER, SELFPAY ==
[2021-05-01 17:08] VITALS: BP 145/76; PULSE 81; RESP 22; TEMP 36.7; O2SAT 97
[2021-05-01] MEDS: SODIUM CHLORIDE 0.9% 1,000 ML 1000 ML IV (17:50)
[2021-05-01] MEDS: KETOROLAC 30 MG/ML VIAL 15 MG IV (17:50)
[2021-05-01] MEDS: diphenhydrAMINE 50 MG/ML VIAL 25 MG IV (17:51)
[2021-05-01] MEDS: ONDANSETRON 4 MG/2 ML INJ IV (17:51)
[2021-05-01] MEDS: PROCHLORPERAZINE 10 MG/2 ML VIAL IV (17:51)
--- NOTE | 2021-05-01 17:55 | ED.HA ---
HPI - Headache <Eleazar Thomas PA-C - Last Filed: 05/01/21 19:13> General Chief Complaint: Headache Stated Complaint: MIGRAINE Time Seen by Provider: 05/01/21 17:20 Mode of arrival: Ambulatory History of Present Illness HPI Narrative: 45-year-old female with past medical history migraines, anxiety, dyslipidemia presents to the ED with 1 day of headache. Patient reports that her headache started about 3 hours prior to arrival, starting of gradually and building up to 10/10. Patient is also endorsing nausea, vomiting. Describes the pain as being all over. Denies fever, chills, neck stiffness, neck pain, visual changes, chest pain, shortness of breath, cough, abdominal pain, dysuria, lightheadedness, dizziness, syncope. Patient states that she used to suffer from migraines frequently when she was younger, however this migraine happened after 2 years of being migraine free. Related Data Home Medications Medication Instructions Recorded Confirmed multivitamin 1 tab PO DAILY 02/16/18 11/27/20 escitalopram oxalate 20 mg tablet 20 mg PO DAILY 06/02/19 11/27/20 alprazolam 0.5 mg tablet (Xanax) 0.25 mg PO BEDTIME PRN #0 tab 11/21/20 11/27/20 cholecalciferol (vitamin D3) PO 11/21/20 11/27/20 magnesium glycinate 100 mg tablet 300 mg PO DAILY tab 11/21/20 11/27/20 propranolol 10 mg tablet 10 mg PO tab 11/21/20 11/27/20 Previous Rx's Medication Instructions Recorded ondansetron HCl 4 mg tablet 4 mg PO Q8H PRN #10 tab 05/01/21 (Zofran) Allergies Allergy/AdvReac Type Severity Reaction Status Date / Time Sulfa (Sulfonamide Allergy Intermediate Hives Verified 11/27/20 10:09 Antibiotics) Review of Systems <Eleazar Thomas PA-C - Last Filed: 05/01/21 19:13> Constitutional Constitutional: Denies chills, Denies fatigue, Denies fever(s), Denies frequent falls, Reports headache(s), Denies lethargy and Denies weakness Eyes Eyes: Denies change in vision, Denies eye discharge, Denies irritation and Denies loss of vision ENT Ears, Nose, Mouth, and Throat: Denies change in voice, Denies dizziness, Reports headache(s), Denies neck pain, Denies sore throat and Denies throat swelling Cardiovascular Cardiovascular: Denies chest pain, Denies irregular heart rhythm, Denies lightheadedness, Denies palpitations, Denies dyspnea, Denies dyspnea on exertion and Denies orthopnea Respiratory Respiratory: Denies cough, Denies dyspnea, Denies dyspnea on exertion and Denies wheezing Gastrointestinal Gastrointestinal: Denies abdominal pain, Denies change in bowel habits, Denies diarrhea, Reports nausea and Reports vomiting Musculoskeletal Musculoskeletal: Denies neck pain and Denies numbness Integumentary/Breasts Skin/Breast: Denies pruritus, Denies erythema, Denies rash and Denies wounds Neurologic Neurologic: Denies behavioral changes, Denies confusion, Denies dizziness, Denies frequent falls, Reports headache(s), Denies loss of vision, Denies numbness and Denies weakness Psychiatric Psychiatric: Denies anxiety, Denies behavioral changes, Denies confusion, Denies depression, Denies homicidal ideation and Denies suicidal ideation Endocrine Endocrine: Denies fatigue, Denies flushing and Denies palpitations Hematologic/Lymphatic Hematologic/Lymphatic: Denies easy bruising Allergic/Immunologic Allergic/Immunologic: Denies urticaria, Denies throat swelling and Denies wheezing Patient History <Eleazar Thomas PA-C - Last Filed: 05/01/21 19:13> Medical History Abnormal Pap smear of cervix (~2003) Anxiety (~2012) Depression (~2012) Dyslipidemia Human papilloma virus (~2003) Impaired fasting blood sugar Surgical History Anesthesia History of biopsy (~2009) History of breast surgery (~2006) History of History of foot surgery (~07/2013) History of tonsillectomy (~1982) Family History Father History of heart disease Hypertension Mother Hypertension Mental health problem Sister Mental health problem Grandfather Hypertension Grandmother Hyperlipidemia Hypertension Mental health problem Grandfather Cancer Grandmother Hypertension Social History Smoking Status: Current every day smoker Tobacco: How many years used: 20 alcohol intake: former substance use type: marijuana Smoking Status: Current every day smoker alcohol intake frequency: holidays/special occasions only Substance Use Type: marijuana Exam <Eleazar Thomas PA-C - Last Filed: 05/01/21 19:13> Initial Vital Signs Initial Vital Signs: Vital Signs Temperature 98.1 F 05/01/21 17:08 Pulse Rate 81 05/01/21 17:08 Respiratory Rate 22 05/01/21 17:08 Blood Pressure 145/76 H 05/01/21 17:08 Pulse Oximetry 97 05/01/21 17:08 Const General: cooperative [facility] Head: normocephalic and atraumatic Ears: external ears normal and TM's normal bilaterally Nose: external nose normal and No nasal discharge Face and sinus: sinuses nontender, face symmetric, no sinus tenderness and No dry mucous membranes Mouth: oral mucosae normal and moist mucous membranes Teeth and gingiva: dentition normal Throat: tonsils normal and uvula midline Eyes General: appearance normal, both eyes and all related structures Eyelids: eyelids normal Conjunctivae: conjunctivae normal Sclera: sclerae normal Pupils: PERRL EOM: EOM intact bilaterally Neck Neck: normal visual inspection, trachea midline, No lymphadenopathy, No midline deformity and No JVD Lymphatic: No lymphedema Other: Good range of motion of neck negative Brudzinski, negative Kernig Chest Chest: normal inspection of the chest Resp Effort & Inspection: normal respiratory effort, able to speak in complete sentences, no respiratory distress and no use of accessory muscles Auscultation: clear to auscultation bilaterally, no rales, no rhonchi and no wheezes Cardio Rate: regular rate Rhythm: regular rhythm Heart Sounds: no click, no gallops, no murmurs and no rubs Pulses: normal peripheral pulses GI Inspection: non-distended Palpation: soft, no hepatosplenomegaly, No guarding, No pulsatile mass and No tender Auscultation: normal bowel sounds Back/Spine/Pelvis Back: No CVA tenderness Cervical Spine: cervical ROM normal and No pain with cervical ROM Thoracic/Lumbar Spine: thoracic and lumbar spine normal to inspection Skin General: no rashes or lesions noted, No jaundice and No petechiae Neuro General: patient alert, patient oriented x3, gait normal and no focal motor deficits Speech: speech normal Other: PERRLA, CN 1 through 12 intact. Gait normal. Negative pronator drift, negative finger to nose, motive rapid alternating movements. Full range of motion. Strength and sensation intact. Patient is neurologically intact. Extrem General: full ROM, no clubbing, cyanosis or edema, no pedal edema and no calf tenderness Psych Appearance: well kempt Mental Status: mental status grossly normal Attitude: cooperative Thought Content: normal and suicidality Judgment: judgment good <Jamaal Don MD - Last Filed: 05/01/21 19:20> Initial Vital Signs Initial Vital Signs: Vital Signs Temperature 98.1 F 05/01/21 17:08 Pulse Rate 81 05/01/21 17:08 Respiratory Rate 22 05/01/21 17:08 Blood Pressure 145/76 H 05/01/21 17:08 Pulse Oximetry 97 05/01/21 17:08 Course <Eleazar Thomas PA-C - Last Filed: 05/01/21 19:13> Course Course Narrative: Patient's symptoms resolved with medications and IV fluids. Patient reports 0/10 discomfort. Repeat neuro exam normal. Will discharge home with ED return precautions. Orders Ordered: Discontinued Medications Diphenhydramine HCl (Diphenhydramine 50 Mg/Ml Vial) 25 mg IV NOW ONE Stop: 05/01/21 17:18 Last Admin: 05/01/21 17:51 Dose: 25 mg Documented by: MIGUEL Sodium Chloride (Normal Saline 0.9%) 1,000 mls @ 1,000 mls/hr IV BOLUS ONE Stop: 05/01/21 18:16 Last Admin: 05/01/21 17:50 Dose: 1,000 mls/hr Documented by: MIGUEL Sodium Chloride (Normal Saline 0.9%) 1,000 mls @ 1,000 mls/hr IV BOLUS ONE Stop: 05/01/21 18:42 Ketorolac Tromethamine (Ketorolac 30 Mg/Ml Vial) 15 mg IV NOW ONE Stop: 05/01/21 17:24 Ketorolac Tromethamine (Ketorolac 30 Mg/Ml Vial) 15 mg IV NOW ONE Stop: 05/01/21 17:44 Last Admin: 05/01/21 17:50 Dose: 15 mg Documented by: MIGUEL Metoclopramide HCl (Metoclopramide 10 Mg/2 Ml Inj) 10 mg IV NOW ONE Stop: 05/01/21 17:44 Ondansetron HCl (Ondansetron 4 Mg/2 Ml Inj) 4 mg IV NOW ONE Stop: 05/01/21 17:18 Last Admin: 05/01/21 17:51 Dose: 4 mg Documented by: MIGUEL Ondansetron HCl (Ondansetron 4 Mg/2 Ml Inj) 4 mg IV NOW ONE Stop: 05/01/21 17:44 Prochlorperazine (Prochlorperazine 10 Mg/2 Ml Vial) 10 mg IV NOW ONE Stop: 05/01/21 17:18 Last Admin: 05/01/21 17:51 Dose: 10 mg Documented by: MIGUEL Vital Signs Vital signs: Vital Signs - 8 hr 05/01/21 17:08 Temperature 98.1 F Pulse Rate 81 Respiratory Rate 22 Blood Pressure 145/76 H Pulse Oximetry 97 <Jamaal Don MD - Last Filed: 05/01/21 19:20> Orders Ordered: Discontinued Medications Diphenhydramine HCl (Diphenhydramine 50 Mg/Ml Vial) 25 mg IV NOW ONE Stop: 05/01/21 17:18 Last Admin: 05/01/21 17:51 Dose: 25 mg Documented by: MIGUEL Sodium Chloride (Normal Saline 0.9%) 1,000 mls @ 1,000 mls/hr IV BOLUS ONE Stop: 05/01/21 18:16 Last Admin: 05/01/21 17:50 Dose: 1,000 mls/hr Documented by: MIGUEL Sodium Chloride (Normal Saline 0.9%) 1,000 mls @ 1,000 mls/hr IV BOLUS ONE Stop: 05/01/21 18:42 Ketorolac Tromethamine (Ketorolac 30 Mg/Ml Vial) 15 mg IV NOW ONE Stop: 05/01/21 17:24 Ketorolac Tromethamine (Ketorolac 30 Mg/Ml Vial) 15 mg IV NOW ONE Stop: 05/01/21 17:44 Last Admin: 05/01/21 17:50 Dose: 15 mg Documented by: MIGUEL Metoclopramide HCl (Metoclopramide 10 Mg/2 Ml Inj) 10 mg IV NOW ONE Stop: 05/01/21 17:44 Ondansetron HCl (Ondansetron 4 Mg/2 Ml Inj) 4 mg IV NOW ONE Stop: 05/01/21 17:18 Last Admin: 05/01/21 17:51 Dose: 4 mg Documented by: MIGUEL Ondansetron HCl (Ondansetron 4 Mg/2 Ml Inj) 4 mg IV NOW ONE Stop: 05/01/21 17:44 Prochlorperazine (Prochlorperazine 10 Mg/2 Ml Vial) 10 mg IV NOW ONE Stop: 05/01/21 17:18 Last Admin: 05/01/21 17:51 Dose: 10 mg Documented by: MIGUEL Vital Signs Vital signs: Vital Signs - 8 hr 05/01/21 17:08 Temperature 98.1 F Pulse Rate 81 Respiratory Rate 22 Blood Pressure 145/76 H Pulse Oximetry 97 MDM - Headache <Eleazar Thomas PA-C - Last Filed: 05/01/21 19:13> MDM Narrative Medical decision making narrative: 45-year-old female with past medical history migraines, anxiety, dyslipidemia presents to the ED with 1 day of headache. History and physical exam reassuring, patient is neurologically intact. Unlikely subarachnoid hemorrhage, given gradual onset of headache. Patient's headache is also similar to prior headaches. At this point there is no indication for imaging. Will give IV fluids, Compazine, Toradol, Benadryl, Zofran for symptoms. Will reassess. Discharge Plan Departure Patient Disposition: Home Clinical Impression: Headache Qualifiers: Headache type: unspecified Headache chronicity pattern: acute headache Intractability: not intractable Qualified Code(s): R51.9 - Headache, unspecified Instructions: DI for Headache Activity Restrictions/Additional Instructions: You were evaluated in the ED for a headache today. Your physical exam was very reassuring. You were given several medications for the headache including Compazine, Toradol, Benadryl, Zofran and some IV fluids. Your symptoms resolved with these medications. Please return to the ED if you have worsening symptoms, sudden thunderclap headache, dizziness, lightheadedness, neck stiffness, neck pain, fever. Prescriptions: New ondansetron HCl [Zofran] 4 mg tablet 4 mg PO Q8H PRN (Reason: nausea and vomiting) Qty: 10 RF: 0 No Action alprazolam [Xanax] 0.5 mg tablet 0.25 mg PO BEDTIME PRN (Reason: Anxiety) Qty: 0 RF: 0 propranolol 10 mg tablet 10 mg PO RF: 0 cholecalciferol (vitamin D3) PO RF: 0 magnesium glycinate 100 mg tablet 300 mg PO DAILY RF: 0 multivitamin Tablet 1 tab PO DAILY RF: 0 escitalopram oxalate 20 mg tablet 20 mg PO DAILY RF: 0 Referrals: Jamie Varela ARNP [Primary Care Provider] -
[2021-05-01 19:34] VITALS: BP 121/58; PULSE 76; O2SAT 97
== END 2021-05-01 19:47 | disposition home or self-care (01) ==
PROVIDERS: Emergency Provider Student in an Organized Health Care Education/Training Program; PCP Registered Nurse Diabetes Educator
DX: R51.9 Headache, unspecified (principal); R74.8 Abnormal levels of other serum enzymes
CPT/HCPCS: 36415; 82728; 83540; 83550; 86704; 86803; 87340; 96374; 96375; 99283; 99284; J0780; J1200; J1885; J2405

== ENCOUNTER → 2021-05-04 16:09 | Outpatient (CLI) | payer OTHER, SELFPAY ==
--- NOTE | 2021-05-04 16:10 | DI.MG.S_ITS ---
BILATERAL DIGITAL SCREENING MAMMOGRAM 3D/2D WITH CAD: 05/04/2021 CLINICAL: Routine screening. Comparison is made to exam dated: 05/01/2020 [facility]. The tissue of both breasts is heterogeneously dense. This may lower the sensitivity of mammography. Current study was also evaluated with a Computer Aided Detection (CAD) system. No significant masses, calcifications, or other findings are seen in either breast. There has been no significant interval change. IMPRESSION: NEGATIVE There is no mammographic evidence of malignancy. A 1 year screening mammogram is recommended. This exam was interpreted at Station ID: [id number]. NOTE: For mammograms, a report in lay terms will be sent to the patient. Approximately 15% of breast malignancies will not be visualized mammographically. In the management of a palpable breast mass, a negative mammogram must not discourage biopsy of a clinically suspicious lesion. Electronically Signed By: Sita gomez/delores:05/04/2021 16:45:37 letter sent: Normal Exam ACR BI-RADS Category 1: Negative [id number]
== END ==
PROVIDERS: PCP Registered Nurse Diabetes Educator; Referring Provider Registered Nurse Diabetes Educator; Visit Provider Registered Nurse Diabetes Educator
DX: Z12.31 Encounter for screening mammogram for malignant neoplasm of breast (principal)
CPT/HCPCS: 77063; 77067

== ENCOUNTER 2021-09-24 16:09 | Emergency (ER) | payer OTHER, SELFPAY ==
[2021-09-24 16:24] VITALS: BP 135/59; PULSE 86; RESP 20; TEMP 36.8; O2SAT 96; BMI 24.7
--- NOTE | 2021-09-24 17:03 | ED.RECABL ---
HPI - Recheck/Abnormal Lab/Rx <Ana Koehler [facility] - Last Filed: 09/24/21 20:26> General Chief Complaint: Recheck/Abnormal Lab/Rx Stated Complaint: STARTED NEW MEDICATION DOES NOT FEEL RIGHT Time Seen by Provider: 09/24/21 17:02 Source: patient Mode of arrival: Ambulatory History of Present Illness HPI narrative: This is a 46-year-old female who presents to the emergency department complaining of symptoms related to her SSRI medication changes have caused her to feel increased anxiety, and she was concerned that her symptoms were not normal. Patient is currently being titrated off of her Lexapro 20 mg, she was changed from 10 mg down to 5 mg last week, she is currently on 20 mg citalopram. Patient states that she did not experience any tremor, anxiety, or symptoms when she titrated from 20 mg of Lexapro down to 10mg, and that happened 2 weeks ago. Last week she went from 10mg down to 5 mg and has been having tremor, anxiety, feeling lightheaded, difficulty concentrating. She states that she feels nauseated but denies any vomiting, she denies any chest pain, she denies any audiovisual hallucinations, homicidal or suicidal ideation, overwhelming depression, anxiety, or other concern. Patient states that she takes alprazolam 0.25 mg b.i.d., she denies taking any more less of this, she states she always takes 2 doses a day. She has tried propanolol, Wellbutrin, or many other antidepressants which have not worked out for her. She has a therapist, she has an upcoming therapy appointment on , her medications are managed by Christina Gill. She states that the office of her therapist and a me up are on vacation for spring this week. She states she has called with her concerns but did not have any response. She states she does not want to go up on her Lexapro for fear of needing to go down on in the future. She wants to know if she is safe, she does not want any medication changes today. Related Data Home Medications Medication Instructions Recorded Confirmed multivitamin 1 tab PO DAILY 02/16/18 11/27/20 escitalopram oxalate 20 mg tablet 20 mg PO DAILY 06/02/19 11/27/20 alprazolam 0.5 mg tablet (Xanax) 0.25 mg PO BEDTIME PRN #0 tab 11/21/20 11/27/20 cholecalciferol (vitamin D3) PO 11/21/20 11/27/20 magnesium glycinate 100 mg tablet 300 mg PO DAILY tab 11/21/20 11/27/20 propranolol 10 mg tablet 10 mg PO tab 11/21/20 11/27/20 Previous Rx's Medication Instructions Recorded ondansetron HCl 4 mg tablet 4 mg PO Q8H PRN #10 tab 05/01/21 (Zofran) Allergies Allergy/AdvReac Type Severity Reaction Status Date / Time Sulfa (Sulfonamide Allergy Intermediate Hives Verified 11/27/20 10:09 Antibiotics) Review of Systems <TALIA Mcqueen - Last Filed: 09/24/21 20:26> Review of Systems Narrative: General: denies fever, chills, malaise, sweats, fatigue, endorses anxiety, and tremors Head/Neck: denies headache, neck pain, dizziness Eyes: denies visual changes, eye pain Cardio: denies chest pain, palpitations, edema Respiratory: denies dyspnea, cough, orthopnea GI: denies abdominal pain, nausea, vomiting, or diarrhea : denies dysuria, hematuria, urinary retention, frequency or incontinence MSK: denies joint pain, muscle weakness Skin: denies rash, itching, skin lesions or other Neuro: denies numbness, tingling Patient History <TALIA Mcqueen - Last Filed: 09/24/21 20:26> Medical History Abnormal Pap smear of cervix (~2003) Anxiety (~2012) Depression (~2012) Dyslipidemia Human papilloma virus (~2003) Impaired fasting blood sugar Surgical History Anesthesia History of biopsy (~2009) History of breast surgery (~2006) History of History of foot surgery (~07/2013) History of tonsillectomy (~1982) Family History Father History of heart disease Hypertension Mother Hypertension Mental health problem Sister Mental health problem Grandfather Hypertension Grandmother Hyperlipidemia Hypertension Mental health problem Grandfather Cancer Grandmother Hypertension Social History Smoking Status: Current every day smoker Tobacco: How many years used: 20 alcohol intake: former substance use type: marijuana Smoking Status: Current every day smoker tobacco type: cigarettes alcohol intake frequency: holidays/special occasions only Substance Use Type: marijuana Exam <TALIA Mcqueen - Last Filed: 09/24/21 20:26> Narrative Exam Narrative: Independently reviewed vitals signs and nursing notes. General: cooperative, comfortable, in no acute distress, well developed and well groomed Head: atraumatic, symmetrical facial expressions Neck: supple, atraumatic, without lymphadenopathy. Eyes: pupils equal round and reactive, EOMI, conjunctiva normal Nose: nares patent, no rhinorrhea Mouth/Throat: moist mucus membranes Cardiovascular: regular rate and rhythm, no peripheral edema, warm extremities Respiratory: normal effort, able to speak in complete sentences, no audible wheezing, stridor, or rales. No retractions or tachypnea. GI: abdomen soft, nontender to palpation, nondistended, no masses, no exquisite tenderness with exam, without guarding or rebound. MSK: moves all extremities, ambulatory w/steady gait, neurovascularly intact, no weakness Skin: brisk capillary refill, no rash, no erythema Neuro: normal speech and cognition, A&O x3, normal tone Psych: mental status is grossly normal, congruent mood, normal affect, pleasant and cooperative Initial Vital Signs Initial Vital Signs: Vital Signs Temperature 98.2 F 09/24/21 16:24 Pulse Rate 86 09/24/21 16:24 Respiratory Rate 20 09/24/21 16:24 Blood Pressure 135/59 L 09/24/21 16:24 Pulse Oximetry 96 09/24/21 16:24 <Maya Alcala DO - Last Filed: 09/28/21 23:18> Initial Vital Signs Initial Vital Signs: Vital Signs Temperature 98.2 F 09/24/21 16:24 Pulse Rate 86 09/24/21 16:24 Respiratory Rate 20 09/24/21 16:24 Blood Pressure 135/59 L 09/24/21 16:24 Pulse Oximetry 96 09/24/21 16:24 Course <TALIA Mcqueen - Last Filed: 09/24/21 20:26> Orders Ordered: ED Orders 09/24/21 18:29 EKG-12 Lead Stat 09/24/21 18:40 CBC Auto Diff [Complete Blood Count AUTO DIFF] Stat CMP [Comprehensive Metabolic Panel] Stat HCG Quantitative /Beta subunit Stat TSH [Thyroid Stimulating Hormone] Stat Vital Signs Vital signs: Vital Signs - 8 hr 09/24/21 16:24 09/24/21 19:43 Temperature 98.2 F Pulse Rate 86 77 Respiratory Rate 20 16 Blood Pressure 135/59 L 124/70 Pulse Oximetry 96 98 <Maya Alcala DO - Last Filed: 09/28/21 23:18> Orders Ordered: ED Orders 09/24/21 18:29 EKG-12 Lead Stat 09/24/21 18:40 CBC Auto Diff [Complete Blood Count AUTO DIFF] Stat CMP [Comprehensive Metabolic Panel] Stat HCG Quantitative /Beta subunit Stat TSH [Thyroid Stimulating Hormone] Stat Vital Signs Vital signs: Vital Signs - 8 hr 09/24/21 16:24 09/24/21 19:43 Temperature 98.2 F Pulse Rate 86 77 Respiratory Rate 20 16 Blood Pressure 135/59 L 124/70 Pulse Oximetry 96 98 MDM - Recheck/Abnormal Lab/Rx <KOKO McqueenP - Last Filed: 09/24/21 20:26> Lab Data Result diagrams: 09/24/21 18:40 09/24/21 18:40 Labs: Lab Results 09/24/21 09/24/21 09/24/21 Range/Units 18:40 18:40 18:40 WBC 11.1 H (4.5-11.0) X10^3/uL RBC 4.72 (4.0-5.2) X10^6/uL Hgb 15.3 (12.0-16.0) g/dL Hct 44.5 (36-46) % MCV 94.2 (80-100) fL MCH 32.4 (26-34) PG MCHC 34.4 (30-36) % RDW 12.9 (11.6-14.8) % Plt Count 205 (150-400) X10^3/uL Neut % (Auto) 71.4 (50-75) % Lymph % (Auto) 19.2 L (25-40) % [place] % (Auto) 7.6 (3-14) % Eos % (Auto) 1.1 L (2-4) % Baso % (Auto) 0.7 (0-2) % Neut # (Auto) 8000 H (1176-3883) /uL Lymph # (Auto) 2100 (5840-9864) /uL [place] # (Auto) 800 (0-900) /uL Eos # (Auto) 100 (0-450) /uL Baso # (Auto) 100 (0-100) /uL Sodium 135 L (137-145) mmol/L Potassium 4.0 (3.4-5.1) mmol/L Chloride 104 (98-107) mmol/L Carbon Dioxide 24 (22-32) mmol/L BUN 12 (7-17) mg/dL Creatinine 0.63 (0.52-1.04) mg/dL Estimated GFR > 60.0 (>60) mL/min BUN/Creatinine Ratio 19.0 (6-22) Glucose 89 (70-100) mg/dL Calcium 9.5 (8.4-10.2) mg/dL Total Bilirubin 0.6 (0.2-1.3) mg/dL AST 23 (14-36) IU/L ALT 24 (<35) IU/L Alkaline Phosphatase 84 (38-126) U/L Total Protein 7.6 (6.3-8.2) g/dL Albumin 4.6 (3.5-5.0) g/dL Globulin 3.0 (1.7-4.1) g/dL Albumin/Globulin Ratio 1.5 (1.0-2.8) TSH 1.54 (0.47-4.68) uIU/mL HCG, Quant mIU/mL 09/24/21 Range/Units 18:40 WBC (4.5-11.0) X10^3/uL RBC (4.0-5.2) X10^6/uL Hgb (12.0-16.0) g/dL Hct (36-46) % MCV (80-100) fL MCH (26-34) PG MCHC (30-36) % RDW (11.6-14.8) % Plt Count (150-400) X10^3/uL Neut % (Auto) (50-75) % Lymph % (Auto) (25-40) % [place] % (Auto) (3-14) % Eos % (Auto) (2-4) % Baso % (Auto) (0-2) % Neut # (Auto) (6497-8685) /uL Lymph # (Auto) (3730-6310) /uL [place] # (Auto) (0-900) /uL Eos # (Auto) (0-450) /uL Baso # (Auto) (0-100) /uL Sodium (137-145) mmol/L Potassium (3.4-5.1) mmol/L Chloride (98-107) mmol/L Carbon Dioxide (22-32) mmol/L BUN (7-17) mg/dL Creatinine (0.52-1.04) mg/dL Estimated GFR (>60) mL/min BUN/Creatinine Ratio (6-22) Glucose (70-100) mg/dL Calcium (8.4-10.2) mg/dL Total Bilirubin (0.2-1.3) mg/dL AST (14-36) IU/L ALT (<35) IU/L Alkaline Phosphatase (38-126) U/L Total Protein (6.3-8.2) g/dL Albumin (3.5-5.0) g/dL Globulin (1.7-4.1) g/dL Albumin/Globulin Ratio (1.0-2.8) TSH (0.47-4.68) uIU/mL HCG, Quant < 2.4 mIU/mL MDM Narrative Medical decision making narrative: To the emergency department while actively titrating down on her Lexapro, on citalopram, and twice a day alprazolam for her anxiety and depressive symptoms. Patient states she has been on Lexapro for last 8 years, has tried multiple SSRIs without much improvement. She has not had a neuropsychiatric evaluation, she states her sister has bipolar, she states that she has a therapist in an upcoming appointment on , her therapist has been helpful for her since 2019. Her prescriber is Christina Gill, and also at this clinic where she has therapy. Patient has been titrating her medications as prescribed and states she did not have any major adverse effects until she went from 10 mg down to 5 mg of her Lexapro last week. She has not changed her citalopram dosing for a couple of weeks, she states that immediately she felt tremors, increasing anxiety, brain fog, and difficulty concentrating. She states that she has tremors intermittently, periods of anxiety which are worse than usual, these sound like symptoms of withdrawal from her Lexapro. Discussed with her the some of the symptoms are normal especially when you have been on a medication that your brain is use to for a long time, and you go to a subtherapeutic dose. Patient states that she takes an extra alprazolam as needed, she has multiple positive coping strategies in place including her therapist, daily meditation, breathing strategies, but she endorses that life is stressful and she has had multiple stressors over the last 1-2 weeks while trying to improve her mental health. Her providers are out of the office for spring break this week. She has tried to get a hold of them. Shared decision making with the patient about any titration of medications. Discussed hydroxyzine, Wellbutrin, multiple other medications, and the best option we both decided was to continue on her same medications with an extra alprazolam as needed. If her symptoms are worsening, to come back to the emergency department, or start taking an additional 5 mg of her Lexapro every other day to see if that helps with her symptoms. She states that since she knows this is not dangerous, she can be more tolerant of these symptoms. EKG today does not show any QT prolongation, Sinus arrhythmia, ST changes or other. Ventricular rate was 67 beats per minute, ID interval 118 milliseconds, QRS duration 82 milliseconds, QT 394 milliseconds with normal axis and normal sinus rhythm. Patient a safety plan in place, a support system at home, and states she will return to the emergency department for worsening of her symptoms, panic attack, homicidal or suicidal ideation, or any other concern. Lab work shows a TSH level of 1.54, test was negative, mild leukocytosis, patient states that her kids have had viral illnesses recently, and she has had some congestion over the last couple of days without fever. Sodium level 135, encouraged patient to eat a healthy diet, increase salt intake over the next 24 hours, stay hydrated, take her medications as prescribed with additional alprazolam as needed, follow up with her providers. Patient is appropriate and amenable to discharge home. Vital signs are stable on repeat examination is unremarkable. Patient has been informed of results. Patient has been given strict return to ER precautions for any new or worsening symptoms. Patient understands to follow up closely with outpatient providers as instructed. Patient understands plan and agrees to discharge home. All questions and concerns answered at this time. <Maya Alcala DO - Last Filed: 09/28/21 23:18> Lab Data Labs: Lab Results 09/24/21 09/24/21 09/24/21 Range/Units 18:40 18:40 18:40 WBC 11.1 H (4.5-11.0) X10^3/uL RBC 4.72 (4.0-5.2) X10^6/uL Hgb 15.3 (12.0-16.0) g/dL Hct 44.5 (36-46) % MCV 94.2 (80-100) fL MCH 32.4 (26-34) PG MCHC 34.4 (30-36) % RDW 12.9 (11.6-14.8) % Plt Count 205 (150-400) X10^3/uL Neut % (Auto) 71.4 (50-75) % Lymph % (Auto) 19.2 L (25-40) % [place] % (Auto) 7.6 (3-14) % Eos % (Auto) 1.1 L (2-4) % Baso % (Auto) 0.7 (0-2) % Neut # (Auto) 8000 H (0720-5575) /uL Lymph # (Auto) 2100 (3962-9569) /uL [place] # (Auto) 800 (0-900) /uL Eos # (Auto) 100 (0-450) /uL Baso # (Auto) 100 (0-100) /uL Sodium 135 L (137-145) mmol/L Potassium 4.0 (3.4-5.1) mmol/L Chloride 104 (98-107) mmol/L Carbon Dioxide 24 (22-32) mmol/L BUN 12 (7-17) mg/dL Creatinine 0.63 (0.52-1.04) mg/dL Estimated GFR > 60.0 (>60) mL/min BUN/Creatinine Ratio 19.0 (6-22) Glucose 89 (70-100) mg/dL Calcium 9.5 (8.4-10.2) mg/dL Total Bilirubin 0.6 (0.2-1.3) mg/dL AST 23 (14-36) IU/L ALT 24 (<35) IU/L Alkaline Phosphatase 84 (38-126) U/L Total Protein 7.6 (6.3-8.2) g/dL Albumin 4.6 (3.5-5.0) g/dL Globulin 3.0 (1.7-4.1) g/dL Albumin/Globulin Ratio 1.5 (1.0-2.8) TSH 1.54 (0.47-4.68) uIU/mL HCG, Quant mIU/mL 09/24/21 Range/Units 18:40 WBC (4.5-11.0) X10^3/uL RBC (4.0-5.2) X10^6/uL Hgb (12.0-16.0) g/dL Hct (36-46) % MCV (80-100) fL MCH (26-34) PG MCHC (30-36) % RDW (11.6-14.8) % Plt Count (150-400) X10^3/uL Neut % (Auto) (50-75) % Lymph % (Auto) (25-40) % [place] % (Auto) (3-14) % Eos % (Auto) (2-4) % Baso % (Auto) (0-2) % Neut # (Auto) (3586-5231) /uL Lymph # (Auto) (7363-6703) /uL [place] # (Auto) (0-900) /uL Eos # (Auto) (0-450) /uL Baso # (Auto) (0-100) /uL Sodium (137-145) mmol/L Potassium (3.4-5.1) mmol/L Chloride (98-107) mmol/L Carbon Dioxide (22-32) mmol/L BUN (7-17) mg/dL Creatinine (0.52-1.04) mg/dL Estimated GFR (>60) mL/min BUN/Creatinine Ratio (6-22) Glucose (70-100) mg/dL Calcium (8.4-10.2) mg/dL Total Bilirubin (0.2-1.3) mg/dL AST (14-36) IU/L ALT (<35) IU/L Alkaline Phosphatase (38-126) U/L Total Protein (6.3-8.2) g/dL Albumin (3.5-5.0) g/dL Globulin (1.7-4.1) g/dL Albumin/Globulin Ratio (1.0-2.8) TSH (0.47-4.68) uIU/mL HCG, Quant < 2.4 mIU/mL Discharge Plan Departure Patient Disposition: Home Clinical Impression: Medication adverse effect Qualifiers: Encounter type: initial encounter Qualified Code(s): T50.905A - Adverse effect of unspecified drugs, medicaments and biological substances, initial encounter Instructions: Depression, Anxiety Disorders, Attention Deficit Hyperactivity Disorder and Attention Deficit Disorder Activity Restrictions/Additional Instructions: *You have been diagnosed with symptoms of Lexapro withdrawal since your recent reduction in dose from 10 mg down to 5 mg. Please continue taking your 20 mg of citalopram, twice a day alprazolam with an additional dose as necessary relief of your symptoms, and 5 mg of daily Lexapro. Please follow-up with Dr. Gill and your primary care provider about your symptoms. Please ask about neuropsychiatric testing and evaluation. There may be more going on than just anxiety or depression like ADHD or other behavioral disorders. Please stay on this track, you are making trends of progress. I hope you start feeling more like yourself soon, keep your appointment with her therapist, work through these things together, keep a journal and continue doing things like meditation, positive coping strategies, getting enough rest, and self-care. Thank you for trusting us with your care, please return for any concerning symptoms. *What to do: *Please continue to take your regular medications as directed. [ ] New medication prescriptions sent to your pharmacy: [ ] [ ] New medication written as a paper prescription [ x] No new medications given *Please follow up with your primary care provider in 2-3 days, call for an appointment. Let them know you were seen in the Emergency Department and that we asked that you be seen for follow-up. We will electronically transmit a record of today's note if your PCP is in our system *If you do not have a primary care provider please contact [phone] to establish care with one of the [facility] primary care providers. *Return to Emergency Department if you should have any new, worsening or concerning symptoms, such as [fever greater than 101F, chills, worsening pain, persistent vomiting or other bothersome symptoms] Prescriptions: No Action alprazolam [Xanax] 0.5 mg tablet 0.25 mg PO BEDTIME PRN (Reason: Anxiety) Qty: 0 0RF propranolol 10 mg tablet 10 mg PO 0RF cholecalciferol (vitamin D3) PO 0RF magnesium glycinate 100 mg tablet 300 mg PO DAILY 0RF multivitamin Tablet 1 tab PO DAILY 0RF ondansetron HCl [Zofran] 4 mg tablet 4 mg PO Q8H PRN (Reason: nausea and vomiting) Qty: 10 0RF escitalopram oxalate 20 mg tablet 20 mg PO DAILY 0RF Referrals: Jairo,Christina, TECHNICAL SUPPORT SPECIALIST-BC [Non-Staff] - Jamie Varela ARNP [Primary Care Provider] - <Maya Alcala DO - Last Filed: 09/28/21 23:18> Cosign ED Attending Nelsonature Attestation: I was immediately available in the department for consultation. Documentation has been reviewed.
[2021-09-24 18:49] LABS: Add Manual Diff / Slide Review NO; Basophils Absolute Auto 100 /uL (0-100); Basophils Percent Auto 0.7 % (0-2); Eosinophils Absolute Auto 100 /uL (0-450); Eosinophils Percent Auto 1.1 % (2-4); Hematocrit 44.5 % (36-46); Hemoglobin 15.3 g/dL (12.0-16.0); Lymphocytes Absolute Auto 2100 /uL (1100-4500); Lymphocytes Percent Auto 19.2 % (25-40); Mean Corpuscular HGB Conc 34.4 % (30-36); Mean Corpuscular Hemoglobin 32.4 PG (26-34); Mean Corpuscular Volume 94.2 fL (80-100); Monocytes Absolute Auto 800 /uL (0-900); Monocytes Percent Auto 7.6 % (3-14); Neutrophils Absolute Auto 8000 /uL (1500-7000); Neutrophils Percent Auto 71.4 % (50-75); Platelet Count 205 X10^3/uL (150-400); Red Blood Cell Count 4.72 X10^6/uL (4.0-5.2); Red Cell Distribution Width 12.9 % (11.6-14.8); White Blood Cell Count 11.1 X10^3/uL (4.5-11.0)
[2021-09-24 19:10] LABS: Alanine Aminotransferase 24 IU/L (<35); Albumin 4.6 g/dL (3.5-5.0); Albumin Globulin Ratio 1.5 (1.0-2.8); Alkaline Phosphatase 84 U/L (38-126); Aspartate Aminotransferase 23 IU/L (14-36); Bilirubin Total 0.6 mg/dL (0.2-1.3); Blood Urea Nitrogen 12 mg/dL (7-17); Calcium 9.5 mg/dL (8.4-10.2); Carbon Dioxide 24 mmol/L (22-32); Chloride 104 mmol/L (98-107); Estimated Glomerular Filt Rate > 60.0 mL/min (>60); Glucose 89 mg/dL (70-100); HEMOLYSIS < 15 (0-50); Sodium 135 mmol/L (137-145); Total Protein 7.6 g/dL (6.3-8.2)
[2021-09-24 19:43] VITALS: BP 124/70; PULSE 77; RESP 16; O2SAT 98
[2021-09-24 19:46] LABS: HCG Quantitative /Beta subunit < 2.4 mIU/mL
[2021-09-24 19:56] LABS: Thyroid Stimulating Hormone 1.54 uIU/mL (0.47-4.68)
== END 2021-09-24 19:45 | disposition home or self-care (01) ==
PROVIDERS: Emergency Provider Nurse Practitioner Critical Care Medicine; PCP Registered Nurse Diabetes Educator
DX: R25.1 Tremor, unspecified (principal); R42 Dizziness and giddiness; T43.225A Adverse effect of selective serotonin reuptake inhibitors, initial encounter; F41.9 Anxiety disorder, unspecified
CPT/HCPCS: 36415; 80053; 84443; 84702; 85025; 93005; 93010; 99283

== ENCOUNTER → 2022-05-09 08:44 | Outpatient (CLI) | payer OTHER, SELFPAY ==
--- NOTE | 2022-05-09 08:46 | DI.MG.S_ITS ---
BILATERAL DIGITAL SCREENING MAMMOGRAM 3D/2D WITH CAD: 05/09/2022 CLINICAL: Routine screening. Comparison is made to exams dated: 05/04/2021 mammogram and 05/01/2020 mammogram - [facility]. Both breasts are heterogeneously dense, which may obscure small masses (category c / 51-75% glandular tissue). Current study was also evaluated with a Computer Aided Detection (CAD) system. There are benign calcifications in the right breast. No significant masses, calcifications, or other findings are seen in either breast. There has been no significant interval change. IMPRESSION: BENIGN There is no mammographic evidence of malignancy. A 1 year screening mammogram is recommended. Based on the Tyrer Cuzick model (a risk assessment model) the patient's lifetime risk is 12.5% and her 10 year risk is 2.1%. According to the ACR, ACS, and NCCN guidelines, an annual breast MRI exam along with mammogram is recommended if the patient's lifetime risk is 20% or greater. This exam was interpreted at Station ID: [id number]. NOTE: For mammograms, a report in lay terms will be sent to the patient. Approximately 15% of breast malignancies will not be visualized mammographically. In the management of a palpable breast mass, a negative mammogram must not discourage biopsy of a clinically suspicious lesion. Electronically Signed By: Tanner sprague/delores:05/09/2022 09:21:58 letter sent: Normal Exam ACR BI-RADS Category 2: Benign Finding(s) [id number]
== END ==
PROVIDERS: PCP Registered Nurse Diabetes Educator; Referring Provider Registered Nurse Diabetes Educator; Visit Provider Registered Nurse Diabetes Educator
DX: Z12.31 Encounter for screening mammogram for malignant neoplasm of breast (principal)
CPT/HCPCS: 77063; 77067

== ENCOUNTER → 2022-06-06 10:23 | Outpatient (CLI) | payer OTHER, SELFPAY ==
[2022-06-06 12:26] LABS: Hematocrit 43.4 % (36-46); Mean Corpuscular HGB Conc 34.5 % (30-36); Mean Corpuscular Volume 95.7 fL (80-100); Platelet Count 208 X10^3/uL (150-400); Red Blood Cell Count 4.53 X10^6/uL (4.0-5.2); White Blood Cell Count 7.1 X10^3/uL (4.5-11.0)
[2022-06-06 12:45] LABS: Alanine Aminotransferase 27 IU/L (<35); Albumin 4.4 g/dL (3.5-5.0); Albumin Globulin Ratio 1.5 (1.0-2.8); Alkaline Phosphatase 79 U/L (38-126); Aspartate Aminotransferase 24 IU/L (14-36); BUN Creatinine Ratio 18.8 (6-22); Bilirubin Total 0.4 mg/dL (0.2-1.3); Bilirubin Unconjugated 0.2 mg/dL (0.0-1.1); Blood Urea Nitrogen 12 mg/dL (7-17); Calcium 9.2 mg/dL (8.4-10.2); Carbon Dioxide 30 mmol/L (22-32); Chloride 102 mmol/L (98-107); Cholesterol 243 mg/dL (140-199); Estimated Glomerular Filt Rate > 60 mL/min (>60); Globulin 2.9 g/dL (1.7-4.1); Glucose 77 mg/dL (70-100); HDL Cholesterol 61 mg/dL (40-60); HEMOLYSIS < 15 (0-50); LDL Cholesterol Calculated 167 mg/dL (<100); Potassium 4.7 mmol/L (3.4-5.1); Sodium 138 mmol/L (137-145); Total Protein 7.3 g/dL (6.3-8.2); Triglycerides 73 mg/dL (35-150)
[2022-06-06 13:16] LABS: TSH w/ Reflex to FT4 1.35 uIU/mL (0.47-4.68)
[2022-06-06 15:23] LABS: Follicle Stimulating Hormone 6.94 mIU/mL
== END ==
PROVIDERS: PCP Registered Nurse Diabetes Educator; Referring Provider Registered Nurse Diabetes Educator; Visit Provider Registered Nurse Diabetes Educator
DX: R74.8 Abnormal levels of other serum enzymes (principal); E78.5 Hyperlipidemia, unspecified; F32.9 Major depressive disorder, single episode, unspecified; F41.9 Anxiety disorder, unspecified; R73.01 Impaired fasting glucose
CPT/HCPCS: 36415; 80053; 80061; 80076; 83001; 84443; 85027

== ENCOUNTER 2023-02-12 01:58 | Emergency (ER) | payer OTHER, SELFPAY ==
--- NOTE | 2023-02-12 02:06 | ED.GENADULT ---
HPI - General Adult General Chief complaint: Abdominal Pain Stated complaint: ABD PAIN AND BACK PAIN, VOMITING Time Seen by Provider: 02/12/23 02:06 Source: patient Mode of arrival: Ambulatory Limitations: no limitations History of Present Illness HPI narrative: Patient is a 47-year-old female who is here for evaluation of epigastric and right upper quadrant abdominal pain. She also states that her back hurts directly posterior to this discomfort. She is also had vomiting. Has been going on for the past several hours. No fevers. No urinary symptoms. She is currently on her menstrual cycle. No change in bowel habits. Has never had discomfort like this before. She did take some Gas-X prior to arrival without any improvement. Related Data Home Medications Medication Instructions Recorded Confirmed multivitamin 1 tab PO DAILY 02/16/18 11/27/20 alprazolam 0.5 mg tablet (Xanax) 0.25 mg PO BEDTIME PRN Anxiety #0 11/21/20 11/27/20 tabs cholecalciferol (vitamin D3) PO 11/21/20 11/27/20 magnesium glycinate 100 mg tablet 300 mg PO DAILY 11/21/20 11/27/20 citalopram 40 mg tablet (Celexa) 40 mg PO DAILY 06/13/22 06/13/22 lamotrigine 25 mg tablet 25 mg PO DAILY 06/13/22 06/13/22 Previous Rx's Medication Instructions Recorded ondansetron HCl 4 mg tablet 4 mg PO Q8H PRN nausea and 05/01/21 (Zofran) vomiting #10 tabs norethindrone (contraceptive) 0.35 0.35 mg PO DAILY #84 tabs 06/03/22 mg tablet Allergies Allergy/AdvReac Type Severity Reaction Status Date / Time Sulfa (Sulfonamide Allergy Intermediate Hives Verified 11/27/20 10:09 Antibiotics) Review of Systems Constitutional Constitutional: Reports system reviewed and no additional complaints, except as documented Gastrointestinal Gastrointestinal: Reports system reviewed and no additional complaints, except as documented Genitourinary Genitourinary: Reports system reviewed and no additional complaints, except as documented Integumentary/Breasts Skin/Breast: Reports system reviewed and no additional complaints, except as documented Hematologic/Lymphatic On Anticoagulants: No Patient History Medical History Abnormal Pap smear of cervix (~2003) Anxiety (~2012) Current smoker Depression (~2012) Dyslipidemia Human papilloma virus (~2003) Impaired fasting blood sugar PMDD (premenstrual dysphoric disorder) Surgical History Anesthesia History of biopsy (~2009) History of breast surgery (~2006) History of History of foot surgery (~07/2013) History of tonsillectomy (~1982) Family History Father History of heart disease Hypertension Mother Hypertension Mental health problem Sister Mental health problem Grandfather Hypertension Grandmother Hyperlipidemia Hypertension Mental health problem Grandfather Cancer Grandmother Hypertension Social History Smoking Status: Current every day smoker Tobacco: How many years used: 20 alcohol intake: former substance use type: marijuana Smoking Status: Current every day smoker tobacco type: cigarettes alcohol intake frequency: holidays/special occasions only Substance Use Type: marijuana Exam Initial Vital Signs Initial Vital Signs: Vital Signs Temperature 97.8 F 02/12/23 02:08 Pulse Rate 68 02/12/23 02:08 Respiratory Rate 17 02/12/23 02:08 Blood Pressure 146/77 H 02/12/23 02:08 Pulse Oximetry 98 02/12/23 02:08 Oxygen Delivery Method Room Air 02/12/23 02:08 Const General: cooperative, comfortable and No ill appearing HENAK Head: normal to inspection and normocephalic GI Inspection: non-distended Palpation: soft, No firm and tender (Epigastric and right upper quadrant) Back/Spine/Pelvis Back: No CVA tenderness Skin General: no rashes or lesions noted Neuro General: patient alert, patient awake and moves all extremities Extrem General: capillary refill normal Course Orders Ordered: ED Orders 02/12/23 02:07 US abdomen limited Stat 02/12/23 02:16 UA Complete [Urinalysis and Microscopic] Stat 02/12/23 02:25 Complete Blood Count AUTO DIFF Stat Comprehensive Metabolic Panel Stat Lipase Stat Discontinued Medications Ketorolac Tromethamine (Ketorolac 30 Mg/Ml Vial) 30 mg IV NOW ONE Stop: 02/12/23 02:31 Last Admin: 02/12/23 02:46 Dose: 30 mg Documented By: HNG Vital Signs Vital signs: Vital Signs - 8 hr 02/12/23 02:08 Temperature 97.8 F Pulse Rate 68 Respiratory Rate 17 Blood Pressure 146/77 H Pulse Oximetry 98 Oxygen Delivery Method Room Air Medical Decision Making Lab Data Lab results reviewed: Yes I reviewed the patient's lab results. 02/12/23 02:25 02/12/23 02:25 Labs: Lab Results 02/12/23 02/12/23 02/12/23 Range/Units 02:16 02:25 02:25 WBC 12.5 H (4.5-11.0) X10^3/uL RBC 4.56 (4.0-5.2) X10^6/uL Hgb 14.7 (12.0-16.0) g/dL Hct 43.1 (36-46) % MCV 94.5 (80-100) fL MCH 32.2 (26-34) PG MCHC 34.0 (30-36) % RDW 13.4 (11.6-14.8) % Plt Count 261 (150-400) X10^3/uL Neut % (Auto) 65.0 (50-75) % Lymph % (Auto) 22.4 L (25-40) % Jerome % (Auto) 9.3 (3-14) % Eos % (Auto) 2.5 (2-4) % Baso % (Auto) 0.8 (0-2) % Neut # (Auto) 8100 H (9975-5388) /uL Lymph # (Auto) 2800 (8985-6339) /uL Jerome # (Auto) 1200 H (0-900) /uL Eos # (Auto) 300 (0-450) /uL Baso # (Auto) 100 (0-100) /uL Sodium 134 L (137-145) mmol/L Potassium 3.8 (3.4-5.1) mmol/L Chloride 106 (98-107) mmol/L Carbon Dioxide 23 (22-32) mmol/L BUN 15 (7-17) mg/dL Creatinine 0.69 (0.52-1.04) mg/dL Estimated GFR > 60 (>60) mL/min BUN/Creatinine Ratio 21.7 (6-22) Glucose 108 H (70-100) mg/dL Calcium 8.9 (8.4-10.2) mg/dL Total Bilirubin 0.2 (0.2-1.3) mg/dL AST 31 (14-36) IU/L ALT 21 (<35) IU/L Alkaline Phosphatase 111 (38-126) U/L Total Protein 6.9 (6.3-8.2) g/dL Albumin 3.9 (3.5-5.0) g/dL Globulin 3.0 (1.7-4.1) g/dL Albumin/Globulin Ratio 1.3 (1.0-2.8) Lipase 192 (23-300) U/L Urine Color Yellow Urine Appearance Cloudy Urine pH 6.5 (4.5-8.0) Ur Specific [place] 1.020 (1.000-1.035) Urine Protein Negative (Negative) Urine Glucose (UA) Negative (Negative) g/dL Urine Ketones Negative (NEGATIVE) Urine Occult Blood 2+ H (Negative) Urine Nitrate Negative (Negative) Urine Bilirubin Negative (NEGATIVE) Urine Urobilinogen 0.2 (0.2) E.U./dL Ur Leukocyte Esterase Negative (NEGATIVE) Urine RBC 1-5/hpf (0-5/HPF) Urine WBC None seen (0-5/HPF) Ur Squamous Epith Cells 0-1 /hpf (0-5/HPF) Amorphous Sediment 3+ Urine Bacteria None seen (None) Ur Culture Indicated? Cult not indicated Point of Care Testing Test Results Negative Urine Dip Bedside Urine Glucose Negative Bedside Urine Bilirubin - Negative Bedside Urine Ketone - Negative Urine Specific [place] 1.015 Bedside Urine Occult Blood +++ Bedside Urine pH 6 Bedside Urine Protein +/- 15 Bedside Urine Urobilinogen - Negative Bedside Urine Nitrite - Negative Bedside Urine Leukocytes - Negative Esterase Point of care testing: Point of Care Testing Test Results Negative Urine Dip Bedside Urine Glucose Negative Bedside Urine Bilirubin - Negative Bedside Urine Ketone - Negative Urine Specific [place] 1.015 Bedside Urine Occult Blood +++ Bedside Urine pH 6 Bedside Urine Protein +/- 15 Bedside Urine Urobilinogen - Negative Bedside Urine Nitrite - Negative Bedside Urine Leukocytes - Negative Esterase Imaging Data US - abdomen: Radiologist's Impression: Cholelithiasis, negative for acute cholecystitis or biliary obstruction MDM Narrative Medical decision making narrative: Patient does have a leukocytosis but no specific signs of any infection. She has blood in her urine but she is on her menstrual cycle and I have a low suspicion for renal colic based on the location of her discomfort. She is cholelithiasis but no signs of acute cholecystitis. Her LFTs and lipase are unremarkable. She potentially has passed a gallstone. We also discussed the possibility of gastric ulcer versus reflux disease. She reports a vast improvement if not resolution of symptoms after Toradol. I do feel that we should hold on a CT scan for now as I have low suspicion for bowel obstruction or appendicitis. I did discuss this with the patient. Will discharge her home with return precautions. She expressed understanding and agreement. Discharge Plan Departure Patient Disposition: Home Clinical Impression: Abdominal pain Instructions: DI for Abdominal Pain-Adult Activity Restrictions/Additional Instructions: Recommend that you continue to take all of your medications as directed. Contact your primary doctor for follow-up. Return to the emergency department for new or worsening symptoms. Prescriptions: No Action alprazolam [Xanax] 0.5 mg tablet 0.25 mg PO BEDTIME PRN (Reason: Anxiety) Qty: 0 norethindrone (contraceptive) 0.35 mg tablet 0.35 mg PO DAILY Qty: 84 3RF citalopram [Celexa] 40 mg tablet 40 mg PO DAILY lamotrigine 25 mg tablet 25 mg PO DAILY cholecalciferol (vitamin D3) PO magnesium glycinate 100 mg tablet 300 mg PO DAILY multivitamin Tablet 1 tab PO DAILY ondansetron HCl [Zofran] 4 mg tablet 4 mg PO Q8H PRN (Reason: nausea and vomiting) Qty: 10 0RF Referrals: Jamie Varela ARNP [Primary Care Provider] - Stand Alone Forms: Patient Portal/API
--- NOTE | 2023-02-12 02:07 | DI.US.S_ITS ---
PROCEDURE: US ABDOMEN LIMITED INDICATIONS: RUQ PAIN TECHNIQUE: Real-time focused scanning was performed of the abdomen, with image documentation. COMPARISON: None. FINDINGS: Liver measures 19 centimeters. Echotexture is overall within normal limits. Cholelithiasis. There is focal tenderness. CBD measures 5 millimeters. However there is no gallbladder wall thickening or pericholecystic fluid. IMPRESSION: Cholelithiasis without imaging secondary signs of inflammation. However, focal tenderness was elicited with probe pressure. Clinical correlation is needed to assess for cholecystitis. If further imaging is desired, a nuclear medicine HIDA study could be ordered. No significant discrepancy. Dictated by: Valeriy Beaulieu M.D. on 02/12/2023 at 8:28 Approved by: Valeriy Beaulieu M.D. on 02/12/2023 at 8:30
[2023-02-12 02:08] VITALS: BP 146/77; PULSE 68; RESP 17; TEMP 36.6; O2SAT 98; BMI 33.2
[2023-02-12 02:09] VITALS: PULSE 63; RESP 16; O2SAT 96
[2023-02-12 02:20] LABS: Appearance Urine UA CLOUDY; Bilirubin Urine UA NEGATIVE (NEGATIVE); Color Urine UA YELLOW; Glucose Urine UA NEGATIVE (Negative); Ketones Urine UA NEGATIVE (NEGATIVE); Leukocyte Esterase Urine UA NEGATIVE (NEGATIVE); Nitrite Urine UA NEGATIVE (Negative); Occult Blood Urine UA 2+ (Negative); Protein Urine UA NEGATIVE (Negative); Urobilinogen Urine UA 0.2 E.U./dL (0.2)
[2023-02-12 02:21] LABS: pH Urine UA 6.5 (4.5-8.0)
[2023-02-12 02:27] LABS: Amorphous Sediment Urine 3+; Bacteria Urine None Seen; Culture Indicated Urine Cult Not Indicated; RBC Urine 1-5/HPF (0-5/HPF); Squamous Epithelial Cell Urine 0-1 /HPF (0-5/HPF); WBC Urine None Seen (0-5/HPF)
[2023-02-12 02:34] LABS: Add Manual Diff / Slide Review NO; Basophils Absolute Auto 100 /uL (0-100); Basophils Percent Auto 0.8 % (0-2); Eosinophils Absolute Auto 300 /uL (0-450); Eosinophils Percent Auto 2.5 % (2-4); Hematocrit 43.1 % (36-46); Hemoglobin 14.7 g/dL (12.0-16.0); Lymphocytes Absolute Auto 2800 /uL (1100-4500); Lymphocytes Percent Auto 22.4 % (25-40); Mean Corpuscular Hemoglobin 32.2 PG (26-34); Mean Corpuscular Volume 94.5 fL (80-100); Monocytes Absolute Auto 1200 /uL (0-900); Monocytes Percent Auto 9.3 % (3-14); Neutrophils Absolute Auto 8100 /uL (1500-7000); Platelet Count 261 X10^3/uL (150-400); Red Blood Cell Count 4.56 X10^6/uL (4.0-5.2); Red Cell Distribution Width 13.4 % (11.6-14.8); White Blood Cell Count 12.5 X10^3/uL (4.5-11.0)
[2023-02-12] MEDS: KETOROLAC 30 MG/ML VIAL IV (02:46)
[2023-02-12 02:57] LABS: Alanine Aminotransferase 21 IU/L (<35); Albumin 3.9 g/dL (3.5-5.0); Albumin Globulin Ratio 1.3 (1.0-2.8); Alkaline Phosphatase 111 U/L (38-126); Aspartate Aminotransferase 31 IU/L (14-36); BUN Creatinine Ratio 21.7 (6-22); Bilirubin Total 0.2 mg/dL (0.2-1.3); Blood Urea Nitrogen 15 mg/dL (7-17); Calcium 8.9 mg/dL (8.4-10.2); Carbon Dioxide 23 mmol/L (22-32); Chloride 106 mmol/L (98-107); Estimated Glomerular Filt Rate > 60 mL/min (>60); Glucose 108 mg/dL (70-100); HEMOLYSIS < 15 (0-50); Lipase 192 U/L (23-300); Potassium 3.8 mmol/L (3.4-5.1); Sodium 134 mmol/L (137-145); Total Protein 6.9 g/dL (6.3-8.2)
[2023-02-12 03:59] VITALS: O2SAT 100
[2023-02-12 04:00] VITALS: BP 123/57; PULSE 63; O2SAT 95
== END 2023-02-12 04:03 | disposition home or self-care (01) ==
PROVIDERS: Emergency Provider Emergency Medicine; PCP Registered Nurse Diabetes Educator
DX: R10.13 Epigastric pain (principal)
CPT/HCPCS: 36415; 76705; 80053; 81001; 81003; 81025; 83690; 85025; 96374; 99284; J1885

== ENCOUNTER → 2023-02-17 11:43 | Outpatient (CLI) | payer OTHER, SELFPAY ==
[2023-02-17 12:59] LABS: Add Manual Diff / Slide Review NO; Basophils Absolute Auto 0 /uL (0-100); Basophils Percent Auto 0.5 % (0-2); Eosinophils Absolute Auto 100 /uL (0-450); Hematocrit 44.7 % (36-46); Hemoglobin 15.2 g/dL (12.0-16.0); Lymphocytes Absolute Auto 1800 /uL (1100-4500); Lymphocytes Percent Auto 20.7 % (25-40); Mean Corpuscular HGB Conc 34.1 % (30-36); Mean Corpuscular Hemoglobin 32.5 PG (26-34); Mean Corpuscular Volume 95.5 fL (80-100); Monocytes Absolute Auto 700 /uL (0-900); Monocytes Percent Auto 7.6 % (3-14); Neutrophils Absolute Auto 6200 /uL (1500-7000); Neutrophils Percent Auto 70.2 % (50-75); Platelet Count 239 X10^3/uL (150-400); Red Blood Cell Count 4.68 X10^6/uL (4.0-5.2); Red Cell Distribution Width 13.2 % (11.6-14.8); White Blood Cell Count 8.9 X10^3/uL (4.5-11.0)
[2023-02-17 13:30] LABS: Alanine Aminotransferase 20 IU/L (<35); Albumin 4.2 g/dL (3.5-5.0); Albumin Globulin Ratio 1.5 (1.0-2.8); Alkaline Phosphatase 100 U/L (38-126); Aspartate Aminotransferase 24 IU/L (14-36); BUN Creatinine Ratio 14.3 (6-22); Bilirubin Total 0.6 mg/dL (0.2-1.3); Blood Urea Nitrogen 9 mg/dL (7-17); Calcium 9.2 mg/dL (8.4-10.2); Carbon Dioxide 23 mmol/L (22-32); Chloride 105 mmol/L (98-107); Estimated Glomerular Filt Rate > 60 mL/min (>60); Globulin 2.8 g/dL (1.7-4.1); Glucose 84 mg/dL (70-100); HEMOLYSIS 23 (0-50); Lipase 121 U/L (23-300); Potassium 4.5 mmol/L (3.4-5.1); Sodium 135 mmol/L (137-145)
[2023-02-17 13:56] LABS: TSH w/ Reflex to FT4 1.17 uIU/mL (0.47-4.68)
== END ==
PROVIDERS: PCP Registered Nurse Diabetes Educator; Referring Provider Family Medicine; Visit Provider Family Medicine
DX: D72.829 Elevated white blood cell count, unspecified (principal); K80.20 Calculus of gallbladder without cholecystitis without obstruction; R10.9 Unspecified abdominal pain
CPT/HCPCS: 36415; 80053; 83690; 84443; 85025

== ENCOUNTER 2023-03-08 18:52 | Observation (INO) | payer OTHER, SELFPAY ==
[2023-03-08] VITALS (8 sets, daily range): BP systolic 134–138; BP diastolic 65–69; PULSE 65–91; RESP 16–17; TEMP 36.6–36.8; O2SAT 91–98; BMI 31.2
--- NOTE | 2023-03-08 19:13 | ED_ITS ---
HPI - General Adult General Chief complaint: Abdominal Pain Stated complaint: thinks gallstones Time Seen by Provider: 03/08/23 18:59 Source: patient Mode of arrival: Ambulatory History of Present Illness HPI narrative: 47-year-old woman presents with colicky midepigastric pain present all day. She was seen in the emergency department on February 12 and diagnosed with cholelithiasis. Since that diagnosis she is been generally feeling unwell with increased epigastric pain, colicky right upper quadrant pain that radiates through to her back. She notes that she is having normal bowel movements. She has restarted her omeprazole and has not found that it is actually made much difference. She describes no fevers, cough, chills. With the pain increasing today despite fasting she came in to prevent getting to the level of pain that prompted the February 12 visit. She does have an outpatient visit scheduled with Dr. Alfredo this coming Friday. She did see her primary care doctor after her recent ER visit Related Data Home Medications Medication Instructions Recorded Confirmed multivitamin 1 tab PO DAILY 02/16/18 03/08/23 cholecalciferol (vitamin D3) 1 tab PO QAM 11/21/20 03/08/23 magnesium glycinate 100 mg tablet 300 mg PO DAILY 11/21/20 03/08/23 citalopram 40 mg tablet (Celexa) 40 mg PO DAILY 06/13/22 03/08/23 lamotrigine 25 mg tablet 25 mg PO DAILY 06/13/22 03/08/23 alprazolam 0.5 mg tablet (Xanax) 0.25 mg PO QAM Anxiety #0 tabs 02/17/23 03/08/23 Previous Rx's Medication Instructions Recorded norethindrone (contraceptive) 0.35 0.35 mg PO DAILY #84 tabs 02/17/23 mg tablet ondansetron HCl 4 mg tablet 4 mg PO Q8H PRN nausea and 02/17/23 vomiting #10 tabs Allergies Allergy/AdvReac Type Severity Reaction Status Date / Time Sulfa (Sulfonamide Allergy Intermediate Hives Verified 02/17/23 10:57 Antibiotics) Review of Systems Review of Systems Narrative: Pertinent positive and negative findings as per HPI Patient History Medical History Abnormal Pap smear of cervix (~2003) Anxiety (~2012) Cholelithiasis Current smoker Depression (~2012) Dyslipidemia Human papilloma virus (~2003) Impaired fasting blood sugar PMDD (premenstrual dysphoric disorder) Surgical History Anesthesia History of biopsy (~2009) History of breast surgery (~2006) History of History of foot surgery (~07/2013) History of tonsillectomy (~1982) Family History Father History of heart disease Hypertension Mother Hypertension Mental health problem Sister Mental health problem Grandfather Hypertension Grandmother Hyperlipidemia Hypertension Mental health problem Grandfather Cancer Grandmother Hypertension Social History household members: spouse and children Smoking Status: Current every day smoker Tobacco: How many years used: 20 alcohol intake: former substance use type: marijuana Smoking Status: Current every day smoker tobacco type: cigarettes alcohol intake frequency: holidays/special occasions only Substance Use Type: marijuana Exam Initial Vital Signs Initial Vital Signs: Vital Signs Pulse Rate 90 03/08/23 18:56 Pulse Oximetry 97 03/08/23 18:56 General: Healthy appearing, in no acute distress. Able to give a complete and coherent history. Well-nourished well-developed HEENT: Moist mucous membranes, normal sclera with reactive pupils, Neck: supple Respiratory: Lungs are clear to auscultation, no wheezing no rales no rhonchi. Full and symmetrical air movement Cardiac: Regular rate and rhythm no murmurs no bruits Abdomen: Soft, mild epigastric and right upper quadrant tenderness without rebound or guarding, good bowel tones, no flank pain Skin: Warm and dry, no rashes Neurologic: Grossly neurologically intact with no obvious asymmetries or abnormalities Extremities: No trauma, well perfused Psych: Cooperative, appropriate insight and affect Course Orders Ordered: ED Orders 03/08/23 19:25 Complete Blood Count AUTO DIFF Stat Comprehensive Metabolic Panel Stat Lipase Stat Alprazolam (Alprazolam 0.25 Mg Tablet) 0.25 mg PO Q6H PRN PRN Reason: Anxiety Last Admin: 03/08/23 23:20 Dose: 0.25 mg Documented By: SR Hydromorphone HCl (Hydromorphone 0.5 Mg Inj) 0.5 mg IV Q2H PRN PRN Reason: Pain, Severe (7-10) Sodium Chloride (Normal Saline 0.9%) 1,000 mls @ 125 mls/hr IV CONT ZOFIA Last Admin: 03/08/23 21:17 Dose: 125 mls/hr Documented By: Ondansetron HCl (Ondansetron 4 Mg/2 Ml Inj) 4 mg IV Q4HR PRN PRN Reason: Nausea And Vomiting Discontinued Medications Nicotine (Nicotine 21 Mg Patch) 21 mg TOP NOW ONE Stop: 03/08/23 21:07 Last Admin: 03/08/23 22:24 Dose: 21 mg Documented By: FAB Ondansetron HCl (Ondansetron 4 Mg Odt) 4 mg SL NOW ONE Stop: 03/08/23 19:13 Last Admin: 03/08/23 19:17 Dose: 4 mg Documented By: Ondansetron HCl (Ondansetron 4 Mg/2 Ml Inj) 4 mg IV NOW ONE Stop: 03/08/23 21:02 Last Admin: 03/08/23 21:17 Dose: 4 mg Documented By: Oxycodone/Acetaminophen (Oxycodone/Acetaminophen 5/325 Tablet) 1 tab PO NOW ONE Stop: 03/08/23 19:13 Last Admin: 03/08/23 19:17 Dose: 1 tab Documented By: Vital Signs Vital signs: Vital Signs - 8 hr 03/08/23 18:58 03/08/23 18:56 03/08/23 18:57 Temperature 98.3 F Pulse Rate 91 H 90 Respiratory Rate 17 Blood Pressure 138/69 138/69 Pulse Oximetry 97 97 Oxygen Delivery Method Room Air 03/08/23 18:57 03/08/23 19:00 03/08/23 20:59 Temperature Pulse Rate 80 80 Respiratory Rate Blood Pressure Pulse Oximetry 97 95 97 Oxygen Delivery Method 03/08/23 21:00 03/08/23 21:00 Temperature Pulse Rate 65 Respiratory Rate Blood Pressure 138/65 Pulse Oximetry 98 Oxygen Delivery Method Medical Decision Making Lab Data 03/08/23 19:25 03/08/23 19:25 Labs: Lab Results 03/08/23 03/08/23 Range/Units 19:25 19:25 WBC 10.1 (4.5-11.0) X10^3/uL RBC 4.97 (4.0-5.2) X10^6/uL Hgb 15.8 (12.0-16.0) g/dL Hct 47.5 H (36-46) % MCV 95.7 (80-100) fL MCH 31.8 (26-34) PG MCHC 33.2 (30-36) % RDW 12.7 (11.6-14.8) % Plt Count 218 (150-400) X10^3/uL Neut % (Auto) 66.8 (50-75) % Lymph % (Auto) 21.9 L (25-40) % [place] % (Auto) 9.2 (3-14) % Eos % (Auto) 1.7 L (2-4) % Baso % (Auto) 0.4 (0-2) % Neut # (Auto) 6700 (3412-2436) /uL Lymph # (Auto) 2200 (1750-2890) /uL [place] # (Auto) 900 (0-900) /uL Eos # (Auto) 200 (0-450) /uL Baso # (Auto) 0 (0-100) /uL Sodium 137 (137-145) mmol/L Potassium 3.7 (3.4-5.1) mmol/L Chloride 104 (98-107) mmol/L Carbon Dioxide 26 (22-32) mmol/L BUN 13 (7-17) mg/dL Creatinine 0.64 (0.52-1.04) mg/dL Estimated GFR > 60 (>60) mL/min BUN/Creatinine Ratio 20.3 (6-22) Glucose 84 (70-100) mg/dL Calcium 9.7 (8.4-10.2) mg/dL Total Bilirubin 0.5 (0.2-1.3) mg/dL AST 23 (14-36) IU/L ALT 20 (<35) IU/L Alkaline Phosphatase 99 (38-126) U/L Total Protein 7.6 (6.3-8.2) g/dL Albumin 4.3 (3.5-5.0) g/dL Globulin 3.3 (1.7-4.1) g/dL Albumin/Globulin Ratio 1.3 (1.0-2.8) Lipase 172 (23-300) U/L MDM Narrative Medical decision making narrative: CC: Colicky midepigastric and right upper quadrant pain Complicating co-morbidities: Anxiety with chronic nausea and epigastric pain, recently diagnosed cholelithiasis Data collected from: patient, Medical records reviewed: ER notes with primary cholelithiasis diagnosis from 02/09 3rd reviewed. Primary care notes from 02/17 are reviewed Differential considered: Gallbladder colic, cholelithiasis, common bile duct stone, pancreatitis, ulcer disease, gastritis Exam documented above, pertinent findings include: Mild epigastric and right upper quadrant tenderness without rebound or guarding Lab Test results independently reviewed as above. Pertinent findings: CBC is unremarkable Chemistries are reassuring with no elevated transaminases Imaging studies independently reviewed: Ultrasound done on February 12 shows cholelithiasis Consultations: Discussed with Dr. Graf, general surgery Treatments: Nausea medication, oral pain medications, parenteral narcotics Re-evaluations: Patient is having recurrent upper abdominal pain and nausea. Discussion regarding hospitalization. Given her known cholelithiasis, symptoms for the last month and increasing symptoms today Dr. Graf has offered to admit her and consider cholecystectomy tomorrow. With shared decision making the patient and her would both like her to stay in the hospital with anticipated cholecystectomy tomorrow Discussion: Cholelithiasis with worsening gallbladder colic. Admit to General surgery with anticipation of cholecystectomy tomorrow. Transition orders are written Discharge Plan Departure Patient Disposition: Admitted as Observation Clinical Impression: Gallbladder colic Cholelithiasis Qualifiers: Cholelithiasis location: gallbladder Cholecystitis presence: without cholecy stitis Admit Date/Time: 03/08/23 21:05 Admit Provider: Saba rGaf
[2023-03-08] MEDS: ONDANSETRON 4 MG ODT SL (19:17)
[2023-03-08] MEDS: OXYCODONE/ACETAMINOPHEN 5/325 TABLET 1 TAB PO (19:17)
[2023-03-08 19:34] LABS: Add Manual Diff / Slide Review NO; Basophils Absolute Auto 0 /uL (0-100); Basophils Percent Auto 0.4 % (0-2); Eosinophils Absolute Auto 200 /uL (0-450); Eosinophils Percent Auto 1.7 % (2-4); Hematocrit 47.5 % (36-46); Hemoglobin 15.8 g/dL (12.0-16.0); Lymphocytes Absolute Auto 2200 /uL (1100-4500); Lymphocytes Percent Auto 21.9 % (25-40); Mean Corpuscular HGB Conc 33.2 % (30-36); Mean Corpuscular Hemoglobin 31.8 PG (26-34); Mean Corpuscular Volume 95.7 fL (80-100); Monocytes Absolute Auto 900 /uL (0-900); Monocytes Percent Auto 9.2 % (3-14); Neutrophils Absolute Auto 6700 /uL (1500-7000); Neutrophils Percent Auto 66.8 % (50-75); Platelet Count 218 X10^3/uL (150-400); Red Blood Cell Count 4.97 X10^6/uL (4.0-5.2); Red Cell Distribution Width 12.7 % (11.6-14.8); White Blood Cell Count 10.1 X10^3/uL (4.5-11.0)
[2023-03-08 19:45] LABS: Alanine Aminotransferase 20 IU/L (<35); Albumin 4.3 g/dL (3.5-5.0); Albumin Globulin Ratio 1.3 (1.0-2.8); Alkaline Phosphatase 99 U/L (38-126); Aspartate Aminotransferase 23 IU/L (14-36); BUN Creatinine Ratio 20.3 (6-22); Bilirubin Total 0.5 mg/dL (0.2-1.3); Blood Urea Nitrogen 13 mg/dL (7-17); Calcium 9.7 mg/dL (8.4-10.2); Carbon Dioxide 26 mmol/L (22-32); Chloride 104 mmol/L (98-107); Estimated Glomerular Filt Rate > 60 mL/min (>60); Globulin 3.3 g/dL (1.7-4.1); Glucose 84 mg/dL (70-100); HEMOLYSIS 18 (0-50); Lipase 172 U/L (23-300); Potassium 3.7 mmol/L (3.4-5.1); Sodium 137 mmol/L (137-145); Total Protein 7.6 g/dL (6.3-8.2)
[2023-03-08] MEDS: SODIUM CHLORIDE 0.9% 1,000 ML 125 ML IV (21:17)
[2023-03-08] MEDS: ONDANSETRON 4 MG/2 ML INJ IV (21:17)
[2023-03-08] MEDS: NICOTINE 21 MG PATCH TOP (22:24)
[2023-03-08] MEDS: ALPRAZolam 0.25 MG TABLET PO (23:20)
[2023-03-09] VITALS (18 sets, daily range): BP systolic 87–154; BP diastolic 35–84; PULSE 65–85; RESP 13–20; TEMP 36.2–36.9; O2SAT 88–99; BMI 31.2
--- NOTE | 2023-03-09 | PATH_ITS ---
[facility] Accession Number: [id number] No. of containers..01 Tissue . 01 Material submitted: . gallbladder - GALLBLADDER . 01 Diagnosis: Gallbladder, Cholecystectomy: Cholelithiasis. One benign cystic duct lymph node. No evidence of neoplasm. MRV 03/13/2023 1537 Local . 01 Electronically signed: . Jonny Romano MD, PhD, Pathologist NPI- [id number] . 01 Gross description: . The specimen is received in formalin labeled with the patient's name, , and gallbladder, and consists of an intact gallbladder measuring 8.7 x 3.4 x 3.1 cm with unremarkable serosa. The cystic duct margin is inked blue. A aranda lymph node candidate is identified measuring 1.1 cm in greatest dimension. The lumen is filled with dark green viscous bile with multiple yellow bossellated calculi measuring up to 0.5 cm in greatest dimension not grossly obstructing the cystic duct. The mucosa is green and velvety with no yellow discoloration, polyps, or lesions identified. The helton average 0.2 cm thick. Crew Boss sections to include the cystic duct margin, intact lymph node candidate, and full-thickness sections are submitted in cassette A1. ([id number]) /FRR 03/12/2023 0356 Local . 01 Pathologist provided ICD-10: K80.70 . 01 CPT . 346126 Specimen Comment: A courtesy copy of this report has been sent to Pathology Performed at: 01 [facility] [address] [place] [address] [address], [place], [place] [id number] MD Aj Richard MD Phone: [phone]
[2023-03-09] MEDS: SODIUM CHLORIDE 0.9% 1,000 ML 125 ML IV (05:08)
[2023-03-09 09:01] LABS: Alanine Aminotransferase 19 IU/L (<35); Albumin 3.7 g/dL (3.5-5.0); Albumin Globulin Ratio 1.3 (1.0-2.8); Alkaline Phosphatase 81 U/L (38-126); Aspartate Aminotransferase 26 IU/L (14-36); Bilirubin Total 0.5 mg/dL (0.2-1.3); Blood Urea Nitrogen 12 mg/dL (7-17); Calcium 8.6 mg/dL (8.4-10.2); Carbon Dioxide 22 mmol/L (22-32); Chloride 110 mmol/L (98-107); Estimated Glomerular Filt Rate > 60 mL/min (>60); Globulin 2.9 g/dL (1.7-4.1); Glucose 87 mg/dL (70-100); Sodium 137 mmol/L (137-145); Total Protein 6.6 g/dL (6.3-8.2)
[2023-03-09 09:03] LABS: HEMOLYSIS 66 (0-50)
[2023-03-09 09:04] LABS: Potassium 4.1 mmol/L (3.4-5.1)
[2023-03-09 09:08] LABS: Add Manual Diff / Slide Review NO; Basophils Absolute Auto 100 /uL (0-100); Basophils Percent Auto 0.9 % (0-2); Eosinophils Absolute Auto 200 /uL (0-450); Eosinophils Percent Auto 2.7 % (2-4); Hematocrit 42.9 % (36-46); Hemoglobin 14.6 g/dL (12.0-16.0); Lymphocytes Absolute Auto 2100 /uL (1100-4500); Lymphocytes Percent Auto 24.5 % (25-40); Mean Corpuscular HGB Conc 34.1 % (30-36); Mean Corpuscular Hemoglobin 32.2 PG (26-34); Mean Corpuscular Volume 94.4 fL (80-100); Monocytes Absolute Auto 900 /uL (0-900); Neutrophils Absolute Auto 5300 /uL (1500-7000); Neutrophils Percent Auto 61.9 % (50-75); Platelet Count 200 X10^3/uL (150-400); Red Blood Cell Count 4.54 X10^6/uL (4.0-5.2); Red Cell Distribution Width 12.8 % (11.6-14.8); White Blood Cell Count 8.6 X10^3/uL (4.5-11.0)
--- NOTE | 2023-03-09 12:04 | P.HP_ITS ---
History of Present Illness History of Present Illness Date Patient Seen: 03/09/23 Date of Onset of Symptoms: 03/09/23 Chief complaint: thinks gallstones Narrative: 47 yo female presents to the emergency room last night with severe right upper quadrant pain. She describes the pain as ?indigestion and gas?. She states that the pain is little better this morning than it was last night. She knows that she has gallstones and has been in the emergency room about a month ago where she had the diagnosis made. At this time she says she ?passed a gallstone? and had an ultrasound that did not show pericholecystic fluid or gallbladder wall thickening however there were stones and focal tenderness on the ultrasound exam. Her liver functions and lipase levels have been normal last night and one month ago. Her PCP is Jamie Varela but was seen by Dr. Robertson whose opinion was that she had biliary colic and should see Dr. Alfredo. She is booked for an initital co nsultation with him on Friday of this week. She has done her research and she is with her at bedside. They are both relatively sure that the gallbladder is a problem and needs to be removed. She also noted that about a year ago, she was told that he had elevated liver function tests and is wondering if these may have had to do with her gallbladder all along. She is still having some pain and the episodes are becoming more frequent and more severe. She is nervous about waiting 1-2 weeks to proceed with cholecystectomy and anticipates that she would likely end up back in [facility] ER She would like to proceed today. [facility] Medical History Abnormal Pap smear of cervix (~2003) Anxiety (~2012) Cholelithiasis Current smoker Depression (~2012) Dyslipidemia Human papilloma virus (~2003) Impaired fasting blood sugar PMDD (premenstrual dysphoric disorder) Surgical History Anesthesia History of biopsy (~2009) History of breast surgery (~2006) History of History of foot surgery (~07/2013) History of tonsillectomy (~1982) Family History Father History of heart disease Hypertension Mother Hypertension Mental health problem Sister Mental health problem Grandfather Hypertension Grandmother Hyperlipidemia Hypertension Mental health problem Grandfather Cancer Grandmother Hypertension Social History household members: spouse and children Smoking Status: Current every day smoker Tobacco: How many years used: 20 alcohol intake: former substance use type: marijuana Meds Home Medications and Allergies Home Medications Medication Instructions Recorded Confirmed Type multivitamin 1 tab PO DAILY 02/16/18 03/08/23 History cholecalciferol (vitamin D3) 1 tab PO QAM 11/21/20 03/08/23 History magnesium glycinate 100 mg tablet 300 mg PO DAILY 11/21/20 03/08/23 History citalopram 40 mg tablet (Celexa) 40 mg PO DAILY 06/13/22 03/08/23 History lamotrigine 25 mg tablet 25 mg PO DAILY 06/13/22 03/08/23 History alprazolam 0.5 mg tablet (Xanax) 0.25 mg PO QAM Anxiety #0 tabs 02/17/23 03/08/23 History norethindrone (contraceptive) 0.35 0.35 mg PO DAILY #84 tabs 02/17/23 03/08/23 Rx mg tablet ondansetron HCl 4 mg tablet 4 mg PO Q8H PRN nausea and 02/17/23 03/08/23 Rx vomiting #10 tabs Allergies Allergy/AdvReac Type Severity Reaction Status Date / Time Sulfa (Sulfonamide Allergy Intermediate Hives Verified 02/17/23 10:57 Antibiotics) Exam Vital Signs (past 8 hours): - 03/09/23 05:24 03/09/23 05:05 03/09/23 08:00 Temperature 97.7 F 97.7 F 98.1 F Pulse Rate 81 81 73 Respiratory Rate 16 16 17 Blood Pressure 101/63 101/63 107/57 L Pulse Oximetry 95 95 97 Oxygen Flow Rate 0 0 0 Oxygen Delivery Method Room Air Oxygen Flow Rate 0 Const General: cooperative, healthy appearing and comfortable Nutritional Appearance: average body habitus, well nourished and obese (BMI 31) HENMT Head: normal to inspection Eyes General: appearance normal, both eyes and all related structures Resp Effort & Inspection: normal respiratory effort and able to speak in complete sentences Cardio Pulses: radial pulses present GI Palpation: soft and tender (moderate RUQ tenderness. +florez sign) Objective Labs 03/09/23 08:40 03/09/23 08:40 Labs: Laboratory Results - last 24 hr 03/08/23 03/08/23 03/09/23 19:25 19:25 08:40 WBC 10.1 8.6 RBC 4.97 4.54 Hgb 15.8 14.6 Hct 47.5 H 42.9 MCV 95.7 94.4 MCH 31.8 32.2 MCHC 33.2 34.1 RDW 12.7 12.8 Plt Count 218 200 Neut % (Auto) 66.8 61.9 Lymph % (Auto) 21.9 L 24.5 L [place] % (Auto) 9.2 10.0 Eos % (Auto) 1.7 L 2.7 Baso % (Auto) 0.4 0.9 Neut # (Auto) 6700 5300 Lymph # (Auto) 2200 2100 [place] # (Auto) 900 900 Eos # (Auto) 200 200 Baso # (Auto) 0 100 Sodium 137 Potassium 3.7 Chloride 104 Carbon Dioxide 26 BUN 13 Creatinine 0.64 Estimated GFR > 60 BUN/Creatinine Ratio 20.3 Glucose 84 Calcium 9.7 Total Bilirubin 0.5 AST 23 ALT 20 Alkaline Phosphatase 99 Total Protein 7.6 Albumin 4.3 Globulin 3.3 Albumin/Globulin Ratio 1.3 Lipase 172 03/09/23 08:40 WBC RBC Hgb Hct MCV MCH MCHC RDW Plt Count Neut % (Auto) Lymph % (Auto) [place] % (Auto) Eos % (Auto) Baso % (Auto) Neut # (Auto) Lymph # (Auto) [place] # (Auto) Eos # (Auto) Baso # (Auto) Sodium 137 Potassium 4.1 Chloride 110 H Carbon Dioxide 22 BUN 12 Creatinine 0.60 Estimated GFR > 60 BUN/Creatinine Ratio 20.0 Glucose 87 Calcium 8.6 Total Bilirubin 0.5 AST 26 ALT 19 Alkaline Phosphatase 81 Total Protein 6.6 Albumin 3.7 Globulin 2.9 Albumin/Globulin Ratio 1.3 Lipase Assessment & Plan Assessment and plan (1) Acute cholecystitis: Status: Acute Assessment & Plan narrative: She has a history strongly suggestive of billiary colic. with increasing episodes and the persistence of significant pain this morning even after a period of NPO and treatment with IV narcotics, clinically is acute cholecystits and supports decision to remove gallbladder today. Other options discussed were waiting and booking outpatient surgery early next week or waiting for Dr. Alfredo (may be a couple weeks). Patient understands the risks, benefits and alternatives including but not limited to bleeding, infection, injury to stoma ch, bowel, liver, and specifically in detail I discussed CBD injury requiring transfer and major surgery in that rare case. She understands the risks benefits and alternatives and wishes to proceed today.
--- NOTE | 2023-03-09 12:18 | CM.DANOTE ---
DCP: Case received, EMR reviewed and met with patient. Spouse, Fabrice, was at bedside. Introduced self and role. Completed DCP assessment based upon information currently available. Patient is a 47 year old female who admitted yesterday evening to the care of the hospitalist team. PCP: TALIA Sher. Payer: confirmed: Jaclyn Aranda. Patient came to the hospital via private vehicle secondary to having midepigastric pain present for most of the day. Patient had been to the ER on 02/12 and had been diagnosed with cholelithiasis. Notes indicate, since then, had been feeling unwell, with increased abdominal pain. Notes also indicate that patient had seen her primary care provider after the initial ER visit, and was then scheduled for an appointment with surgeon, Dr. Alfredo, on Friday. Patient diagnosed with choleithiasis, will have surgery consult for potential cholecystectomy. Met with patient in her room, spouse at bedside. Confirmed that she resides in [place] with spouse. She goes to [facility] as stated above, for her primary care. P: DCP to continue to follow. Will have surgery consult today for potential surgery. Plan is home when deemed medically stable. Kaci Amezquita RN/Fund Accountant Discharge Planning/Care Management CM Discharge Assessment Start: 03/09/23 12:17 Freq: Status: Active Protocol: Document 03/09/23 12:17 (Rec: 03/09/23 12:17 [id number]) Discharge Planning Assessment Assigned Channel Lip St[employer]ener Insoles Kaci Amezquita RN/Fund Accountant Advance Directives? No History Provided By Patient,Medical Record Prior Living Arrangements House Household Members spouse,children Type of transporation used prior to Drives own vehicle admit Independent with ADL's Yes Is patient alert and oriented? Yes Caregiver for Another No Barriers to Discharge No Discharge Plan Home Transportation Arrangement Spouse Referrals Initiated None needed Whiteboard Updated in Patient Room with Yes name and ext. # of Channel Lip Stiffener Insoles Review Status In Process Next Review Type Continued Stay Review
[2023-03-09] MEDS: SCOPOLAMINE 1 PATCH TOP (12:35)
[2023-03-09] MEDS: LACTATED RINGERS 1,000 ML 42 ML IV ×2 (12:41→13:51)
[2023-03-09] MEDS: CEFAZOLIN 2 GM/100 ML PREMIX 100 ML IV (13:40)
--- NOTE | 2023-03-09 13:45 | SUR.OPER ---
Supine on padded OR bed, head on pillow, safety belt at thigh, arms secured to padded arm boards <90 degrees abduction. Legs uncrossed. Padded footboard in place. Tape over blanket to secure lower legs.
[2023-03-09] MEDS: BUPIVACAINE 0.5% (PF) 30 ML, EPINEPHrine 0.15 MG INJ (13:57)
[2023-03-09] MEDS: ONDANSETRON 4 MG ODT PO (16:54)
--- NOTE | 2023-03-09 18:02 | PM.OP.1 ---
Operative Date/Time/Diagnoses Date of procedure: 03/09/23 Time of procedure: 18:02 Pre-op diagnosis: acute cholecystitis Post-op diagnosis: same Procedure & Clinicians Procedure: Laparoscopic cholecystectomy Same procedure as scheduled: Yes Indications: Acute cholecystitis Surgeon: Saba Graf Click Yes if Unassisted: Yes Anesthesia Type: General Operative Notes Procedure in detail: Patient was taken to the operating room and placed supine on the operating room table. General endotracheal anesthesia was induced. Preoperative antibiotics were administered bilateral SCDs in place. A time-out was performed. The abdomen was prepped and draped in the usual sterile fashion. Local anesthetic was used to infuse above the umbilicus and an 11 blade scalpel was used to incise the skin. Electrocautery used to bring the incision to the anterior abdominal wall fascia which was doubly grasped with 2 Celi retractors and elevated. The abdominal space was then entered sharply with an 11 blade scalpel. Two stay sutures of 0 Vicryl were placed in the fascial layer. A Dick trocar was then placed into the abdomen and the abdomen was insufflated. A 5 mm 30 degree scope was introduced and the abdomen was inspected there was no sign of entry injury. There was omental attachments in the right upper quadrant. Accessory 5 mm trocars x3 were placed under direct visualization after infusing local anesthetic in the epigastric and subcostal locations. The gallbladder appeared mildly inflamed. I was able to grab the gallbladder and retract the dome cephalad. I used my other grasper to grab the neck and my right handed grasper to proceed with the dissection of the critical view using a Marga dissector. I was able to identify the cystic duct entering directly into the gallbladder and multiple view points as well as the cystic artery, photographs were taken. I doubly clipped the cystic duct on the stay side and once on the specimen side and ligated it. I then isolated the cystic artery and doubly clipped and ligated the cystic artery. The gallbladder was placed into the Endo-Catch bag and removed through the umbilical port site. The gallbladder fossa bed was hemostatic and the clips were secure. The accessory trocars were then removed under direct visualization and the abdomen was desufflated. The stay sutures were then used to close the fascial layer and the skin was closed with running 4-0 Monocryl. The wounds were dressed with Steri-Strips. The patient tolerated the procedure well and went in good condition to the postoperative care unit there were no complications. EBL was minimal. Complications: none Post-operative Disposition: PACU
[2023-03-09] MEDS: ACETAMINOPHEN 325 MG TABLET 975 MG PO (18:19)
[2023-03-09] MEDS: ONDANSETRON 4 MG ODT 8 MG PO (18:21)
[2023-03-09] MEDS: IBUPROFEN 600 MG TABLET PO (18:21)
[2023-03-09] MEDS: ALPRAZolam 0.25 MG TABLET PO (18:26)
[2023-03-09] MEDS: OXYCODONE IR 5 MG TABLET PO (20:17)
[2023-03-09] MEDS: PROCHLORPERAZINE 10 MG/2 ML VIAL 5 MG IV (21:04)
[2023-03-09] MEDS: CITALOPRAM 10 MG TABLET 40 MG PO (22:10)
[2023-03-09] MEDS: lamoTRIgine 100 MG TABLET 25 MG PO (22:13)
[2023-03-10] MEDS: ONDANSETRON 4 MG ODT 8 MG PO ×2 (00:55→17:12)
[2023-03-10] MEDS: ACETAMINOPHEN 325 MG TABLET 975 MG PO ×2 (00:55→12:32)
[2023-03-10] MEDS: IBUPROFEN 600 MG TABLET PO ×2 (00:55→12:33)
[2023-03-10 00:57] VITALS: BP 133/69; PULSE 91; RESP 20; TEMP 36.5; O2SAT 100
[2023-03-10 04:52] VITALS: BP 148/81; PULSE 99; RESP 20; TEMP 36.8; O2SAT 96
[2023-03-10 08:00] VITALS: BP 112/50; PULSE 72; RESP 16; TEMP 37.1; O2SAT 95
[2023-03-10] MEDS: CHOLECALCIFEROL (VITAMIN D3) 1,000 UNIT TABLET 1000 UNIT PO (08:25)
[2023-03-10] MEDS: ALPRAZolam 0.25 MG TABLET PO (08:27)
[2023-03-10] MEDS: MULTIVITAMIN 1 TABLET 1 TAB PO (08:28)
[2023-03-10] MEDS: PROCHLORPERAZINE 10 MG/2 ML VIAL 5 MG IV (08:49)
[2023-03-10] MEDS: OXYCODONE IR 10 MG TABLET PO ×2 (08:52→17:12)
[2023-03-10 12:00] VITALS: BP 117/86; PULSE 87; RESP 16; O2SAT 97
--- NOTE | 2023-03-10 13:21 | CM.DPC ---
DCP Cont. Reviewed EMR, consulted w/floor RN re: pt's post-surgical status and d/c needs. Pt will be d/c'd later this afternoon, pending d/c orders. Spouse will be here to transport home. No anticipated d/c needs at this time.
[2023-03-10 16:00] VITALS: BP 116/52; PULSE 57; RESP 16; O2SAT 96
--- NOTE | 2023-03-10 17:27 | PC.NURSE ---
Day shift: Picked up care of patient from previous RN at 1645. Discharge orders obtained. Went over discharge instructions with patient and spouse. PIV d/c'ed. All questions answered, patient stated understanding. All belongings with patient. Escorted patient via wheelchair to emergency exit where spouse to take her home.
== END 2023-03-10 17:31 | disposition home or self-care (01) ==
LOC: ED 18:59 → AC 21:06
PROVIDERS: Admitting Provider Surgery; Emergency Provider Emergency Medicine; PCP Registered Nurse Diabetes Educator; Referring Provider Emergency Medicine; Visit Provider Surgery
PROC: 0FT44ZZ Resection of Gallbladder, Percutaneous Endoscopic Approach (ICD-10-PCS; CPT 47562; principal; 2023-03-09 13:00)
DX: K81.0 Acute cholecystitis (principal)
CPT/HCPCS: 47562; 36415; 80053; 83690; 85025; 96361; 96374; 96375; 99222; 99283; 99284; G0378; J0171; J0330; J0690; J0780; J1100; J1170; J1885; J2250; J2405; J2704; J3010; J3490

== ENCOUNTER 2023-04-10 18:33 | Emergency (ER) | payer OTHER, SELFPAY ==
[2023-03-08 21:52] VITALS: BMI 31.2
--- NOTE | 2023-04-10 18:37 | ED_ITS ---
HPI - General Adult General Chief complaint: Extremity Injury, Lower Stated complaint: right leg/knee injury fell 7 days ago Time Seen by Provider: 04/10/23 18:37 History of Present Illness HPI narrative: 47-year-old female daily smoker without significant chronic medical history presents for evaluation of pain in her right hip and anterior thigh. She states that she started noticing pain a few days ago. She denies any traumatic injury to her right leg but does state that a few days prior to this pain she fell on her left side. She denies any history of back pain. She denies any trouble controlling bowel or bladder, takes no blood thinners and has no fever. She denies any weakness of her lower extremity but states that when ambulating seems to have pain that wraps around her hip and into her anterior thigh but states it is not made any worse by pressing on her thigh or knee. She denies any redness or swelling. She denies any history of the same. Related Data Home Medications Medication Instructions Recorded Confirmed multivitamin 1 tab PO DAILY 02/16/18 03/27/23 cholecalciferol (vitamin D3) 1 tab PO QAM 11/21/20 03/27/23 magnesium glycinate 100 mg tablet 300 mg PO DAILY 11/21/20 03/27/23 citalopram 40 mg tablet (Celexa) 40 mg PO DAILY 06/13/22 03/27/23 lamotrigine 25 mg tablet 25 mg PO DAILY 06/13/22 03/27/23 alprazolam 0.5 mg tablet (Xanax) 0.25 mg PO QAM Anxiety #0 tabs 02/17/23 03/27/23 Fiber gummies 5 g PO 03/19/23 03/27/23 Fish Oil 1,800 mg PO DAILY 03/19/23 03/27/23 Arleth 150mg & l theanine 150mg PO 03/19/23 03/27/23 ashwagandha root extract 300 mg mg PO 03/19/23 03/27/23 capsule Previous Rx's Medication Instructions Recorded ondansetron HCl 4 mg tablet 4 mg PO Q8H PRN nausea and 02/17/23 vomiting #10 tabs hydrocodone 5 mg-acetaminophen 325 1 tab PO Q8H PRN pain #14 tabs 03/10/23 mg tablet ondansetron 4 mg disintegrating 4 mg PO Q6H PRN nausea and 03/11/23 tablet vomiting #30 tabs norethindrone (contraceptive) 0.35 0.35 mg PO DAILY #84 tabs 03/19/23 mg tablet cyclobenzaprine 10 mg tablet 10 mg PO TID PRN muscle spasm #14 04/10/23 tabs gabapentin 300 mg capsule 300 mg PO BEDTIME #14 caps 04/10/23 ketorolac 10 mg tablet 10 mg PO Q6H PRN pain #14 tabs 04/10/23 methylprednisolone 4 mg tablets in See Rx Instructions PO .COMPLEX 04/10/23 a dose pack (Medrol (Bassam)) #21 ea Allergies Allergy/AdvReac Type Severity Reaction Status Date / Time Sulfa (Sulfonamide Allergy Intermediate Hives Verified 03/27/23 11:34 Antibiotics) Review of Systems Review of Systems Narrative: GENERAL: Denies chills, fatigue, malaise, fever, sweats. HEENT: Denies sinus pain, ear pain, sore throat, difficulty swallowing, dizziness. RESPIRATORY: Denies dyspnea, cough, wheezing, hemoptysis, sputum. CARDIOVASCULAR: Denies chest pain, palpitations, orthopnea, edema, GASTROINTESTINAL: Denies nausea, vomiting, abdominal pain, diarrhea, constipation, melena. : Denies dysuria, frequency, incontinence, hematuria, urinary retention. MUSCULOSKELETAL: See HPI SKIN: Denies rash, skin lesions, or other NEUROLOGIC: See HPI PSYCHIATRIC: No concerning psychosocial issues. 12 point review of systems is negative except for those stated above Patient History Medical History Gallbladder colic Cholelithiasis Cholelithiasis Current smoker PMDD (premenstrual dysphoric disorder) Depression (~2012) Human papilloma virus (~2003) Abnormal Pap smear of cervix (~2003) Impaired fasting blood sugar Dyslipidemia Anxiety (~2012) Surgical History Anesthesia History of foot surgery (~07/2013) History of breast surgery (~2006) History of biopsy (~2009) History of History of tonsillectomy (~1982) Family History Father History of heart disease Hypertension Mother Hypertension Mental health problem Sister Mental health problem Grandfather Hypertension Grandmother Hyperlipidemia Hypertension Mental health problem Grandfather Cancer Grandmother Hypertension Social History household members: spouse and children Smoking Status: Current every day smoker Tobacco: How many years used: 20 alcohol intake: former substance use type: marijuana Smoking Status: Current every day smoker tobacco type: cigarettes alcohol intake frequency: holidays/special occasions only Substance Use Type: does not use Exam Narrative Exam Narrative: GENERAL: [47] year old patient appears stated age. Well-developed patient, in mild distress. HEAD: Atraumatic. Normocephalic. EYES: Pupils equal round and reactive. Extraocular motions intact. No scleral icterus. No injection or drainage. ENT: Nose without bleeding, purulent drainage. Throat without erythema, tonsillar hypertrophy or exudate. Airway patent. NECK: Trachea midline. Non tender CARDIOVASCULAR: Regular rate and rhythm without murmurs, gallops, or rubs. RESPIRATORY: Clear to auscultation. Breath sounds equal bilaterally. No wheezes, rales, or rhonchi. GASTROINTESTINAL: Abdomen soft, non-tender, nondistended. EXTREMITIES: No edema or joint tenderness. No redness, warmth or swelling of right leg, no reproducible pain on palpation BACK: Nontender without deformity or crepitance. No flank tenderness. No saddle anesthesia, no measurable lower extremity weakness, bilateral lower extremity reflexes 2+ NEURO: AOx3. SKIN: No rash or erythema of visible areas Initial Vital Signs Initial Vital Signs: Vital Signs Temperature 98.7 F 04/10/23 18:40 Pulse Rate 80 04/10/23 18:40 Respiratory Rate 18 04/10/23 18:40 Blood Pressure 131/62 04/10/23 18:40 Pulse Oximetry 98 04/10/23 18:40 Oxygen Delivery Method Room Air 04/10/23 18:40 Course Orders Ordered: ED Orders 04/10/23 18:44 XR hip w pel if done RT 2V Stat XR lumbar spine 2-3V Stat Discontinued Medications Gabapentin (Gabapentin 300 Mg Capsule) 300 mg PO NOW ONE Stop: 04/10/23 19:12 Last Admin: 04/10/23 19:19 Dose: 300 mg Documented By: Ketorolac Tromethamine (Ketorolac 30 Mg/Ml Vial) 30 mg IM NOW ONE Stop: 04/10/23 19:12 Last Admin: 04/10/23 19:19 Dose: 30 mg Documented By: Prednisone (Prednisone 20 Mg Tablet) 40 mg PO NOW ONE Stop: 04/10/23 19:12 Last Admin: 04/10/23 19:19 Dose: 40 mg Documented By: Vital Signs Vital signs: Vital Signs - 8 hr 04/10/23 18:40 Temperature 98.7 F Pulse Rate 80 Respiratory Rate 18 Blood Pressure 131/62 Pulse Oximetry 98 Oxygen Delivery Method Room Air Medical Decision Making MDM Narrative Medical decision making narrative: [47] year old patient presents with right lateral hip and anterior leg pain after fall a few days ago. Multiple etiologies for patient's symptoms considered including, but not limited to: [Lumbar radiculopathy versus cauda equina versus lumbar fracture versus hip fracture versus dislocation versus other] Prior Charts reviewed in our EMR Primary Historian: patient Imaging reviewed: L-spine and pelvis with right hip without obvious bony abnormality Patient's history and physical exam reassuring. Multiple diagnoses considered as noted above. There is not a reproducible pain on palpation which would suggest hematoma, infectious process or bony abnormality are unlikely. She does have worsening symptoms upon standing with radiation around lateral hip and into anterior thigh. It seems likely that she has a mild radiculopathy that is related to the fall she had last week. She has no signs of cauda equina, no numbness, tingling or weakness, no loss of control of bowel or bladder and no measurable weakness. Epidural abscess and hematoma considered but thought extremely unlikely given lack of midline pain, no use of anticoagulants or direct trauma, no fever. Patient's symptoms improved over duration of stay with above-stated therapies. Findings and discharge diagnosis discussed with patient/family followed by verbalization of understanding Return precautions discussed with patient/family whom verbalize understanding of diagnosis and plan Discharge Plan Departure Patient Disposition: Home Clinical Impression: Acute pain of right lower extremity, Acute lumbar radiculopathy Instructions: DI for Lumbar Radiculopathy Activity Restrictions/Additional Instructions: *You have been diagnosed with [right lower extremity pain most likely related to lumbar radiculopathy. As we discussed your history and physical exam are reassuring. Imaging demonstrates no evidence of fracture or dislocation] *What to do: *Please continue to take your regular medications as directed. [x ] New medication prescriptions sent to your pharmacy: [ [facility] ] [ ] New medication written as a paper prescription [ ] No new medications given *Please follow up with your primary care provider in 2-3 days, call for an appointment. Let them know you were seen in the Emergency Department and that we ask that you be seen in follow up. We will electronically transmit a record of today's note if your PCP is in our system *If you do not have a primary care provider please contact the [facility] Resource line at [phone]. They will ask some questions about your medical history and help get you set up with a doctor in the community. *Return to Emergency Department if you should have any new, worsening or concerning symptoms, such as [fever greater than 101 F, shaking chills, worsening pain, persistent vomiting or other bothersome symptoms] Prescriptions: New cyclobenzaprine 10 mg tablet 10 mg PO TID PRN (Reason: muscle spasm) Qty: 14 0RF ketorolac 10 mg tablet 10 mg PO Q6H PRN (Reason: pain) Qty: 14 0RF gabapentin 300 mg capsule 300 mg PO BEDTIME Qty: 14 0RF methylprednisolone [Medrol (Bassam)] 4 mg tablets,dose pack See Rx Instructions .ROUTE .COMPLEX Qty: 21 0RF Rx Instructions: orally per package directions No Action alprazolam [Xanax] 0.5 mg tablet 0.25 mg PO QAM Qty: 0 ondansetron 4 mg tablet,disintegrating 4 mg PO Q6H PRN (Reason: nausea and vomiting) Qty: 30 0RF citalopram [Celexa] 40 mg tablet 40 mg PO DAILY lamotrigine 25 mg tablet 25 mg PO DAILY ondansetron HCl 4 mg tablet 4 mg PO Q8H PRN (Reason: nausea and vomiting) Qty: 10 0RF cholecalciferol (vitamin D3) 1 tab PO QAM magnesium glycinate 100 mg tablet 300 mg PO DAILY norethindrone (contraceptive) 0.35 mg tablet 0.35 mg PO DAILY Qty: 84 0RF Arleth 150mg & l theanine 150mg PO Fish Oil 1,800 mg PO DAILY Fiber gummies 5 g PO ashwagandha root extract 300 mg capsule PO multivitamin Tablet 1 tab PO DAILY hydrocodone-acetaminophen 5-325 mg tablet 1 tab PO Q8H PRN (Reason: pain) Qty: 14 0RF Referrals: Jamie Varela ARNP [Primary Care Provider] - Stand Alone Forms: Patient Portal/API
[2023-04-10 18:40] VITALS: BP 131/62; PULSE 80; RESP 18; TEMP 37.1; O2SAT 98
--- NOTE | 2023-04-10 18:44 | DI.RAD.S_ITS ---
PROCEDURE: XR HIP W PEL IF DONE RT 2V INDICATIONS: Right hip/groin pain TECHNIQUE: AP pelvis with lateral view(s) of the right hip(s). COMPARISON: None. FINDINGS: Bones: No definite fracture. Normal alignment. Pelvic ring appears intact. No suspicious bony lesions. Soft tissues: The visualized bowel gas pattern is normal. No suspicious soft tissue calcifications. IMPRESSION: Pelvis and right hip without definite acute fracture. No dislocation. If there are persistent symptoms or clinical suspicion for pathology, then repeat radiographs or advanced imaging (CT or MRI) may be considered for further evaluation. Dictated by: Tanner Villalpando M.D. on 04/10/2023 at 19:45 Approved by: Tanner Villalpando M.D. on 04/10/2023 at 19:46
--- NOTE | 2023-04-10 18:44 | DI.RAD.S_ITS ---
PROCEDURE: XR LUMBAR SPINE 2-3V INDICATIONS: fall, RLE radicular pain TECHNIQUE: 3 views of the lumbar spine were acquired. COMPARISON: None. FINDINGS: Bones: 5 [id number] vertebrae are present. There is normal bony alignment. No acute vertebral body compression fractures. No suspicious bony lesions. Soft tissues: Overlying bowel gas pattern is normal. No suspicious soft tissue calcifications. Surgical clips in right upper quadrant compatible with prior cholecystectomy. IMPRESSION: Lumbar spine without acute fracture or traumatic malalignment. Dictated by: Tanner Villalpando M.D. on 04/10/2023 at 19:44 Approved by: Tanner Villalpando M.D. on 04/10/2023 at 19:45
[2023-04-10] MEDS: GABAPENTIN 300 MG CAPSULE PO (19:19)
[2023-04-10] MEDS: predniSONE 20 MG TABLET 40 MG PO (19:19)
[2023-04-10] MEDS: KETOROLAC 30 MG/ML VIAL IM (19:19)
[2023-04-10 20:03] VITALS: BP 118/59; PULSE 74; RESP 16; O2SAT 97
== END 2023-04-10 20:03 | disposition home or self-care (01) ==
PROVIDERS: Emergency Provider Emergency Medicine; PCP Registered Nurse Diabetes Educator
DX: M79.604 Pain in right leg (principal); M54.16 Radiculopathy, lumbar region; W19.XXXA Unspecified fall, initial encounter
CPT/HCPCS: 72100; 73502; 96372; 99283; J1885

== ENCOUNTER 2023-04-17 22:48 | Inpatient (IN) | payer OTHER, SELFPAY ==
[2023-03-08 21:52] VITALS: BMI 31.2
[2023-04-17 22:49] VITALS: BP 141/73; PULSE 89; RESP 16; TEMP 36.7; O2SAT 97; BMI 32.9
--- NOTE | 2023-04-17 22:53 | DI.RAD.S_ITS ---
PROCEDURE: XR HIP W PEL IF DONE RT 2V INDICATIONS: R hip pain after fall TECHNIQUE: AP pelvis with lateral view(s) of the right hip(s). COMPARISON: [facility], , XR HIP W PEL IF DONE RT 2V, 04/10/2023, 18:55. FINDINGS: Bones: There is a basicervical right femoral neck fracture and resulting varus deformity. The femoral head remains located. There is a chronic deformity of remote left pubic fracture. No other definite fractures. Soft tissues: The visualized bowel gas pattern is normal. No suspicious soft tissue calcifications. IMPRESSION: 1. Impacted right basicervical femoral neck fracture. Dictated by: Sita Spain M.D. on 04/18/2023 at 0:12 Approved by: Sita Spain M.D. on 04/18/2023 at 0:14
[2023-04-17 23:01] VITALS: PULSE 89; PULSE 90; O2SAT 97
--- NOTE | 2023-04-17 23:20 | ED_ITS ---
HPI - Fall General Chief Complaint: Fall Stated Complaint: left hip pain Time Seen by Provider: 04/17/23 22:53 Source: patient and EMS Mode of arrival: EMS History of Present Illness HPI Narrative: Patient is a 47-year-old female who is brought in by EMS for evaluation of right hip pain after fall. Patient states that a couple weeks ago she fell down some stairs. She injured her left side. Those symptoms seemed to have improved however she subsequently developed some right-sided lower back and leg pain. She was seen here in the emergency department approximately 1 week ago. Had x- rays performed. It was determined that this was more of a pinched nerve/sciatic issue. She is been on medications for this. She states her symptoms have been not improving potentially somewhat worsening. She is been using crutches to help her get around. She states she tripped and fell landing on her right hip this evening. Did not hit her head. No other injuries from the event. She states she is been unable to stand on her leg since then. She did feel/hear a ?pop? during this event. She received Zofran and fentanyl by EMS prior to arrival. Related Data Home Medications Medication Instructions Recorded Confirmed multivitamin 1 tab PO DAILY 02/16/18 04/16/23 cholecalciferol (vitamin D3) 1 tab PO QAM 11/21/20 04/16/23 magnesium glycinate 100 mg tablet 300 mg PO DAILY 11/21/20 04/16/23 citalopram 40 mg tablet (Celexa) 40 mg PO DAILY 06/13/22 04/16/23 lamotrigine 25 mg tablet 25 mg PO DAILY 06/13/22 04/16/23 Fiber gummies 5 g PO 03/19/23 04/16/23 Fish Oil 1,800 mg PO DAILY 03/19/23 04/16/23 Alreth 150mg & l theanine 150mg PO 03/19/23 04/16/23 ashwagandha root extract 300 mg mg PO 03/19/23 04/16/23 capsule alprazolam 0.25 mg tablet 0.25 mg PO DAILY PRN 04/16/23 04/16/23 bupropion HCl 100 mg tablet,12 hr 100 mg PO BID 04/16/23 04/16/23 sustained-release hydroxyzine pamoate 25 mg capsule 25 mg PO BID 04/16/23 04/16/23 Previous Rx's Medication Instructions Recorded ondansetron HCl 4 mg tablet 4 mg PO Q8H PRN nausea and 02/17/23 vomiting #10 tabs ondansetron 4 mg disintegrating 4 mg PO Q6H PRN nausea and 03/11/23 tablet vomiting #30 tabs gabapentin 300 mg capsule 300 mg PO BEDTIME #14 caps 04/10/23 ketorolac 10 mg tablet 10 mg PO Q6H PRN pain #14 tabs 04/10/23 methylprednisolone 4 mg tablets in See Rx Instructions PO .COMPLEX 04/10/23 a dose pack (Medrol (Bassam)) #21 ea cyclobenzaprine 10 mg tablet 10 mg PO TID PRN muscle spasm #30 04/16/23 tabs gabapentin 100 mg capsule 300 mg (3 x 100 mg) PO TID #270 04/16/23 caps meloxicam 7.5 mg tablet 7.5 mg PO BID PRN pain #30 tabs 04/16/23 norethindrone (contraceptive) 0.35 0.35 mg PO DAILY #84 tabs 04/16/23 mg tablet Allergies Allergy/AdvReac Type Severity Reaction Status Date / Time Sulfa (Sulfonamide Allergy Intermediate Hives Verified 04/17/23 22:57 Antibiotics) Review of Systems Constitutional Constitutional: Reports system reviewed and no additional complaints, except as documented Musculoskeletal Musculoskeletal: Reports system reviewed and no additional complaints, except as documented Neurologic Neurologic: Reports system reviewed and no additional complaints, except as documented Patient History Medical History Gallbladder colic Cholelithiasis Cholelithiasis Current smoker PMDD (premenstrual dysphoric disorder) Depression (~2012) Human papilloma virus (~2003) Abnormal Pap smear of cervix (~2003) Impaired fasting blood sugar Dyslipidemia Anxiety (~2012) Surgical History Anesthesia History of foot surgery (~07/2013) History of breast surgery (~2006) History of biopsy (~2009) History of History of tonsillectomy (~1982) Family History Father History of heart disease Hypertension Mother Hypertension Mental health problem Sister Mental health problem Grandfather Hypertension Grandmother Hyperlipidemia Hypertension Mental health problem Grandfather Cancer Grandmother Hypertension Social History household members: spouse and children Smoking Status: Current every day smoker Tobacco: How many years used: 20 alcohol intake: former substance use type: marijuana Smoking Status: Current every day smoker tobacco type: cigarettes alcohol intake frequency: holidays/special occasions only Substance Use Type: does not use Exam Initial Vital Signs Initial Vital Signs: Vital Signs Temperature 98.0 F 04/17/23 22:49 Pulse Rate 89 04/17/23 22:49 Respiratory Rate 16 04/17/23 22:49 Blood Pressure 141/73 H 04/17/23 22:49 Pulse Oximetry 97 04/17/23 22:49 Oxygen Delivery Method Room Air 04/17/23 22:49 HENMT Head: normal to inspection and normocephalic GI Inspection: normal to inspection and non-distended Palpation: soft and No tender Skin General: no rashes or lesions noted Extrem Other: Tenderness to palpation of the right hemipelvis. Her right ankle and right knee unremarkable. Left lower extremity unremarkable here bilateral upper extremities unremarkable. Course Orders Ordered: ED Orders 04/17/23 22:53 XR hip w pel if done RT 2V Stat 04/17/23 23:50 Basic Metabolic Panel Stat Complete Blood Count AUTO DIFF Stat Test Serum,Qual Stat 04/17/23 23:51 CT pelvis wo con Stat 04/18/23 00:11 Consult to Orthopedic Surgery Stat Sodium Chloride (Normal Saline 0.9%) 1,000 mls @ 125 mls/hr IV CONT ZOFIA Last Infusion: 04/17/23 23:40 Dose: 125 mls/hr Documented By: Infusion: 04/17/23 23:31 Dose: 0 mls/hr Documented By: Admin: 04/17/23 23:31 Dose: 125 mls/hr Documented By: DAINA Discontinued Medications Hydromorphone HCl (Hydromorphone 1 Mg Inj) 1 mg IV NOW ONE Stop: 04/17/23 23:24 Last Admin: 04/17/23 23:30 Dose: 1 mg Documented By: DAINA Metoclopramide HCl (Metoclopramide 10 Mg/2 Ml Inj) 10 mg IV NOW ONE Stop: 04/17/23 23:05 Last Admin: 04/17/23 23:22 Dose: 10 mg Documented By: DAINA Vital Signs Vital signs: Vital Signs - 8 hr 04/17/23 22:49 04/17/23 23:01 04/17/23 23:01 Temperature 98.0 F Pulse Rate 89 89 90 Respiratory Rate 16 Blood Pressure 141/73 H Pulse Oximetry 97 97 Oxygen Delivery Method Room Air 04/17/23 23:30 04/17/23 23:53 04/17/23 23:53 Temperature Pulse Rate 93 H 92 H Respiratory Rate 18 Blood Pressure 142/65 H Pulse Oximetry 99 98 Oxygen Delivery Method 04/18/23 00:00 04/18/23 00:00 Temperature Pulse Rate 88 Respiratory Rate 14 Blood Pressure 128/61 Pulse Oximetry 95 Oxygen Delivery Method Room Air MDM - Fall Lab Data Attestation: I reviewed the patient's lab results. 04/17/23 23:50 04/17/23 23:50 Labs: Lab Results 04/17/23 Range/Units 23:50 WBC 19.5 H (4.5-11.0) X10^3/uL RBC 4.57 (4.0-5.2) X10^6/uL Hgb 14.5 (12.0-16.0) g/dL Hct 42.7 (36-46) % MCV 93.3 (80-100) fL MCH 31.7 (26-34) PG MCHC 33.9 (30-36) % RDW 13.2 (11.6-14.8) % Plt Count 268 (150-400) X10^3/uL Neut % (Auto) 78.4 H (50-75) % Lymph % (Auto) 11.7 L (25-40) % [place] % (Auto) 8.2 (3-14) % Eos % (Auto) 1.2 L (2-4) % Baso % (Auto) 0.5 (0-2) % Neut # (Auto) 68766 H (2050-8403) /uL Lymph # (Auto) 2300 (8780-2284) /uL [place] # (Auto) 1600 H (0-900) /uL Eos # (Auto) 200 (0-450) /uL Baso # (Auto) 100 (0-100) /uL Sodium 135 L (137-145) mmol/L Potassium 3.3 L (3.4-5.1) mmol/L Chloride 104 (98-107) mmol/L Carbon Dioxide 23 (22-32) mmol/L BUN 16 (7-17) mg/dL Creatinine 0.59 (0.52-1.04) mg/dL Estimated GFR > 60 (>60) mL/min BUN/Creatinine Ratio 27.1 H (6-22) Glucose 113 H (70-100) mg/dL Calcium 9.0 (8.4-10.2) mg/dL Serum , Qual Negative (Negative) Imaging Data Extremity x-ray #1: My Impression: Right femoral neck fracture MDM Narrative Medical decision making narrative: Patient's x-ray does show a right femoral neck fracture. I did discuss the case with Dr. White on-call for Orthopedics who recommended a CT scan for surgical preparation. Discussed the case with Dr. Garner hospitalist on-call who will admit for further evaluation and treatment. Discussed the need for admission and the x-ray findings with the patient. She expressed understanding and agreement with plan. Discharge Plan Departure Patient Disposition: Admitted As Inpatient Clinical Impression: Closed fracture of neck of right femur
[2023-04-17] MEDS: METOCLOPRAMIDE 10 MG/2 ML INJ IV (23:22)
[2023-04-17 23:30] VITALS: PULSE 93; O2SAT 99
[2023-04-17] MEDS: HYDROMORPHONE 1 MG INJ IV (23:30)
[2023-04-17] MEDS: SODIUM CHLORIDE 0.9% 1,000 ML 125 ML IV (23:31)
--- NOTE | 2023-04-17 23:51 | DI.CT.S_ITS ---
PROCEDURE: CT PEL WO CON INDICATIONS: R fem neck fracture TECHNIQUE: Noncontrast 3 mm axial sections acquired through the bony pelvis, with coronal and sagittal reformatting. COMPARISON: None. FINDINGS: Image quality: Excellent. Bones: There is a basicervical right femoral neck fracture with varus angulation, minor displacement, and minimal comminution. No femoral head dislocation. No pelvic fractures. No suspicious bone lesions. Soft tissues: Intrapelvic soft tissues demonstrate no evidence of hematoma or free pelvic fluid. Normal visible bowel loops, uterus, ovaries, urinary bladder, and vasculature. Musculature appears normal. IMPRESSION: 1. Mildly angulated, minor early displaced right basicervical femoral neck fracture. Dictated by: Sita Spain M.D. on 04/18/2023 at 1:24 Approved by: Sita Spain M.D. on 04/18/2023 at 1:28
[2023-04-17 23:53] VITALS: BP 142/65; PULSE 92; RESP 18; O2SAT 98
[2023-04-17 23:58] LABS: Add Manual Diff / Slide Review NO; Basophils Absolute Auto 100 /uL (0-100); Basophils Percent Auto 0.5 % (0-2); Eosinophils Absolute Auto 200 /uL (0-450); Eosinophils Percent Auto 1.2 % (2-4); Hematocrit 42.7 % (36-46); Hemoglobin 14.5 g/dL (12.0-16.0); Lymphocytes Absolute Auto 2300 /uL (1100-4500); Lymphocytes Percent Auto 11.7 % (25-40); Mean Corpuscular HGB Conc 33.9 % (30-36); Mean Corpuscular Hemoglobin 31.7 PG (26-34); Mean Corpuscular Volume 93.3 fL (80-100); Monocytes Absolute Auto 1600 /uL (0-900); Monocytes Percent Auto 8.2 % (3-14); Neutrophils Absolute Auto 15300 /uL (1500-7000); Neutrophils Percent Auto 78.4 % (50-75); Platelet Count 268 X10^3/uL (150-400); Red Blood Cell Count 4.57 X10^6/uL (4.0-5.2); Red Cell Distribution Width 13.2 % (11.6-14.8); White Blood Cell Count 19.5 X10^3/uL (4.5-11.0)
[2023-04-18] VITALS (20 sets, daily range): BP systolic 100–132; BP diastolic 38–77; PULSE 83–123; RESP 11–19; TEMP 35.9–36.9; O2SAT 92–98; BMI 32.3
--- NOTE | 2023-04-18 | PATH_ITS ---
[facility] Accession Number: [id number] No. of containers..01 Tissue . 01 Material submitted: . femur - FEMORAL HEAD/NECK . 01 Diagnosis: Bone, Femoral Head/Neck, Excision: Hemorrhage, associated degenerative/reparative changes and bone remodeling, consistent with fracture-related changes. Marrow with maturing trilineage hematopoiesis and minute lymphoid aggregate, consistent with reactive-type. Background osteopenia. No increased plasma cells, or atypical lymphoid aggregates. Negative for metastatic malignancy. [facility] 04/29/20231532 Local . 01 Comment: As part of ongoing manufacturing quality manager a selected slide is reviewed by Dr. Rebecca Baez who agrees with the interpretation. . 01 Electronically signed: . Zeferino Durant MD, Pathologist NPI- [id number] . 01 Gross description: . The specimen is received in formalin labeled with the patient's name, , and femoral neck/head, consists of a 3.9 cm (diameter) by 5.0 cm long femoral head with a portion of femoral measuring 1.5 cm in length by 2.5 cm in diameter. The articular surface is generally smooth with a small roughened area measuring 0.9 cm in greatest dimension. No eburnation is identified. Sectioning reveals a brown, trabecular cut surface admixed with pale areas. No lesions or osteophytes are identified. Paint Spray Inspector sections are submitted as follows: A1-A2: Femoral head with pale areas. A3: Femoral neck/separate fragment sections submitted for decalcification. ([id number]) /MRV 04/29/20231532 Local . 01 Pathologist provided ICD-10: S72.001D . 01 CPT . 962766, 931677 Specimen Comment: A courtesy copy of this report has been sent to [facility] Performed at: 01 [facility] [address], [place], [place] [id number] MD Aj Richard MD Phone: [phone]
--- NOTE | 2023-04-18 | DI.RAD.S_ITS ---
PROCEDURE: XR HIP W PEL IF DONE RT 2V INDICATIONS: OR TECHNIQUE: AP pelvis and lateral view of the right hip acquired. COMPARISON: [facility], CT, CT PEL WO CON, 04/18/2023, 0:18. [facility], CR, XR HIP W PEL IF DONE RT 2V, 04/18/2023, 17:32. FINDINGS: Bones: Patient is status post total right hip arthroplasty, with hardware components in expected positions. The hip joint appears congruent. The visualized bony structures appear intact. Soft tissues: Overlying postoperative changes are noted. No suspicious soft tissue densities. IMPRESSION: Expected immediate postoperative appearance, status post total right hip arthroplasty. Dictated by: Magdaleno Jarrett M.D. on 04/19/2023 at 10:41 Approved by: Magdaleno Jarrett M.D. on 04/19/2023 at 10:42
--- NOTE | 2023-04-18 | DI.RAD.S_ITS ---
PROCEDURE: XR HIP W PEL IF DONE RT 2V INDICATIONS: Right hip replacement TECHNIQUE: 2 view(s) of the hip acquired. COMPARISON: [facility], CR, XR HIP W PEL IF DONE RT 2V, 04/17/2023, 22:56. [facility], CR, XR HIP W PEL IF DONE RT 2V, 04/10/2023, 18:55. FINDINGS: Bones: Patient is status post right hip arthroplasty, with hardware components in expected positions. The arthroplasty hip joint appears congruent. The visualized bony structures appear intact. Soft tissues: Overlying postoperative changes are noted. No suspicious soft tissue densities. IMPRESSION: Normal immediate postoperative examination with cerclage wire at the proximal femur just below the inter trochanteric area and with resection of the right femoral head and neck above the fracture plane. Excellent anatomic alignment obtained. Dictated by: Mega Nunez M.D. on 04/19/2023 at 20:11 Approved by: Mega Nunez M.D. on 04/19/2023 at 20:12
[2023-04-18 00:11] LABS: BUN Creatinine Ratio 27.1 (6-22); Blood Urea Nitrogen 16 mg/dL (7-17); Carbon Dioxide 23 mmol/L (22-32); Chloride 104 mmol/L (98-107); Estimated Glomerular Filt Rate > 60 mL/min (>60); Glucose 113 mg/dL (70-100); HEMOLYSIS < 15 (0-50); Potassium 3.3 mmol/L (3.4-5.1); Pregnancy Test Serum,Qual Negative (Negative); Sodium 135 mmol/L (137-145)
[2023-04-18] MEDS: HYDROMORPHONE 0.5 MG INJ IV (00:44)
[2023-04-18] MEDS: ONDANSETRON 4 MG ODT PO (02:00)
[2023-04-18] MEDS: OXYCODONE IR 5 MG TABLET PO ×3 (02:04→12:51)
[2023-04-18] MEDS: SODIUM CHLORIDE 0.9% 1,000 ML 100 ML IV ×2 (02:05→08:34)
--- NOTE | 2023-04-18 02:11 | PM.HP.1 ---
History of Present Illness History of Present Illness Chief complaint: left hip pain Narrative: 47 years old female presents to the ER with right hip pain after fall. This is the second time after she fell 2 weeks ago. This time the patient lost balance and fell on the right side. After the fall she immediately started experiencing severe pain and unable to ambulate. Denies any loss of consciousness or head injury. She received Zofran and fentanyl by EMS prior to arrival. In the ED the patient had x-ray which shows right femoral neck fracture and orthopedic surgery was consulted. COUNT INCLUDES THE [facility] Medical History Gallbladder colic Cholelithiasis Cholelithiasis Current smoker PMDD (premenstrual dysphoric disorder) Depression (~2012) Human papilloma virus (~2003) Abnormal Pap smear of cervix (~2003) Impaired fasting blood sugar Dyslipidemia Anxiety (~2012) Surgical History Anesthesia History of foot surgery (~07/2013) History of breast surgery (~2006) History of biopsy (~2009) History of History of tonsillectomy (~1982) Family History Father History of heart disease Hypertension Mother Hypertension Mental health problem Sister Mental health problem Grandfather Hypertension Grandmother Hyperlipidemia Hypertension Mental health problem Grandfather Cancer Grandmother Hypertension Social History household members: spouse and children Smoking Status: Current every day smoker Tobacco: How many years used: 20 alcohol intake: former substance use type: marijuana Meds Home Medications and Allergies Home Medications Medication Instructions Recorded Confirmed Type multivitamin 1 tab PO DAILY 02/16/18 04/18/23 History cholecalciferol (vitamin D3) 1 tab PO QAM 11/21/20 04/18/23 History magnesium glycinate 100 mg tablet 300 mg PO DAILY 11/21/20 04/18/23 History citalopram 40 mg tablet (Celexa) 40 mg PO DAILY 06/13/22 04/18/23 History lamotrigine 25 mg tablet 25 mg PO DAILY 06/13/22 04/18/23 History ondansetron 4 mg disintegrating 4 mg PO Q6H PRN nausea and 03/11/23 04/18/23 Rx tablet vomiting #30 tabs Fish Oil 1,800 mg PO DAILY 03/19/23 04/18/23 History Arleth 150mg & l theanine 150mg 150 mg PO DAILY 03/19/23 04/18/23 History ashwagandha root extract 300 mg 300 mg PO DAILY 03/19/23 04/18/23 History capsule gabapentin 300 mg capsule 300 mg PO BEDTIME #14 caps 04/10/23 04/18/23 Rx ketorolac 10 mg tablet 10 mg PO Q6H PRN pain #14 tabs 04/10/23 04/18/23 Rx alprazolam 0.25 mg tablet 0.25 mg PO DAILY 04/16/23 04/18/23 History bupropion HCl 100 mg tablet,12 hr 100 mg PO BID 04/16/23 04/18/23 History sustained-release cyclobenzaprine 10 mg tablet 10 mg PO TID PRN muscle spasm #30 04/16/23 04/18/23 Rx tabs hydroxyzine pamoate 25 mg capsule 25 mg PO BID 04/16/23 04/18/23 History meloxicam 7.5 mg tablet 7.5 mg PO BID PRN pain #30 tabs 04/16/23 04/18/23 Rx norethindrone (contraceptive) 0.35 0.35 mg PO DAILY #84 tabs 04/16/23 04/18/23 Rx mg tablet Allergies Allergy/AdvReac Type Severity Reaction Status Date / Time Sulfa (Sulfonamide Allergy Intermediate Hives Verified 04/17/23 22:57 Antibiotics) Review of Systems Review of Systems ROS: Yes All systems reviewed with the patient and are negative except as otherwise documented Constitutional Constitutional: Reports as per HPI and Reports system reviewed and no additional complaints, except as documented Eyes Eyes: Reports as per HPI and Reports system reviewed and no additional complaints, except as documented ENT Ears, Nose, Mouth, and Throat: Yes as per HPI and Yes system reviewed and no additional complaints, except as documented Cardiovascular Cardiovascular: Reports system reviewed and no additional complaints, except as documented Respiratory Respiratory: Reports system reviewed and no additional complaints, except as documented Gastrointestinal Gastrointestinal: Reports system reviewed and no additional complaints, except as documented Genitourinary Genitourinary: Reports system reviewed and no additional complaints, except as documented Musculoskeletal Musculoskeletal: Reports system reviewed and no additional complaints, except as documented, Reports abnormal gait and Reports numbness Neurologic Neurologic: Reports system reviewed and no additional complaints, except as documented, Reports abnormal gait, Reports confusion and Reports numbness Psychiatric Psychiatric: Reports system reviewed and no additional complaints, except as documented and Reports confusion Exam Vital Signs (past 8 hours): - 04/17/23 22:49 04/17/23 23:01 04/17/23 23:01 Temperature 98.0 F Pulse Rate 89 89 90 Respiratory Rate 16 Blood Pressure 141/73 H Pulse Oximetry 97 97 Oxygen Delivery Method Room Air 04/17/23 23:30 04/17/23 23:53 04/17/23 23:53 Temperature Pulse Rate 93 H 92 H Respiratory Rate 18 Blood Pressure 142/65 H Pulse Oximetry 99 98 Oxygen Delivery Method 04/18/23 00:00 04/18/23 00:00 04/18/23 00:30 Temperature Pulse Rate 88 108 H Respiratory Rate 14 Blood Pressure 128/61 Pulse Oximetry 95 98 Oxygen Delivery Method Room Air Room Air 04/18/23 01:00 04/18/23 01:29 04/18/23 01:33 Temperature 96.7 F L Pulse Rate 95 H 103 H Respiratory Rate 18 Blood Pressure 128/61 132/77 Pulse Oximetry 95 98 Oxygen Delivery Method Room Air Oxygen Delivery Method Room Air Const General: cooperative, comfortable and well developed Orientation: alert and oriented x3 HENMT Head: normal to inspection, normocephalic and atraumatic Face and sinus: normal facial exam Mouth: oral mucosae normal and moist mucous membranes Throat: posterior oropharynx normal Eyes General: appearance normal, both eyes and all related structures Pupils: PERRL EOM: EOM intact bilaterally Neck Neck: normal visual inspection and full ROM Chest Chest: normal inspection of the chest Resp Effort & Inspection: normal respiratory effort and able to speak in complete sentences Auscultation: clear to auscultation bilaterally Cardio Palpation: normal PMI Rate: regular rate Rhythm: regular rhythm Heart Sounds: S1 normal and S2 normal GI Inspection: normal to inspection Palpation: soft and no hepatosplenomegaly Auscultation: normal bowel sounds Skin General: no rashes or lesions noted Lesions: no lesions Rashes: no rashes Trauma: no lacerations or abrasions Neuro General: patient alert, patient awake, patient oriented x3 and no focal motor deficits Cranial Nerves: CN's II-XI intact bilaterally Cognition: normal cognition Speech: speech normal Gait: normal gait Motor: muscle tone normal throughout Sensory Exam: no sensory deficits noted Extrem General: full ROM and no calf tenderness Psych Appearance: grossly normal Mental Status: mental status grossly normal Speech and Movement: speech and movement normal Objective Labs 04/17/23 23:50 04/17/23 23:50 Labs: Laboratory Results - last 24 hr 04/17/23 23:50 WBC 19.5 H RBC 4.57 Hgb 14.5 Hct 42.7 MCV 93.3 MCH 31.7 MCHC 33.9 RDW 13.2 Plt Count 268 Neut % (Auto) 78.4 H Lymph % (Auto) 11.7 L [place] % (Auto) 8.2 Eos % (Auto) 1.2 L Baso % (Auto) 0.5 Neut # (Auto) 79647 H Lymph # (Auto) 2300 [place] # (Auto) 1600 H Eos # (Auto) 200 Baso # (Auto) 100 Sodium 135 L Potassium 3.3 L Chloride 104 Carbon Dioxide 23 BUN 16 Creatinine 0.59 Estimated GFR > 60 BUN/Creatinine Ratio 27.1 H Glucose 113 H Calcium 9.0 Serum , Qual Negative Assessment & Plan Assessment and plan (1) Closed fracture of neck of right femur: Status: Acute Plan: N.p.o. Pain medications as needed Orthopedic surgery consult IV fluids (2) Depression: Qualifiers: Depression Type: major depressive disorder Major depression recurrence: recurrent Active/Remission status: currently active Major depression episode severity: moderate Qualified Code(s): F33.1 - Major depressive disorder, recurrent, moderate Status: Acute Plan: Restart her home medications (3) Dyslipidemia: Status: Acute Plan: Defer to her PCP (4) Impaired fasting blood sugar: Status: Acute Plan: Monitor blood sugar (5) Current smoker: Status: Acute Time Spent With Patient Time with patient: 50 to 69 minutes with 50% spent counseling/coordinating care Quality VTE Deep Vein Thrombosis/Pulmonary Embolism Present on Admission: No MIPS - Admit I confirm the patient?s Advance Care Plan is present, Code status is documented, Surrogate decision maker is in patient?s record [If Yes, STOP here]: Yes MIPS - Meds 'Current medications' to include all prescriptions, [id number] products, herbals, cannabis/cannabidiol products, and vitamin/mineral/dietary (nutritional) supplements. I have utilized all available resources to obtain, update, or review the patient?s current medications. [If Yes, STOP here]: Yes
[2023-04-18] MEDS: KETOROLAC 30 MG/ML VIAL 15 MG IV (06:31)
--- NOTE | 2023-04-18 07:42 | PM.HP.1 ---
History of Present Illness History of Present Illness Chief complaint: left hip pain Narrative: 47 years old female presents to the ER with right hip pain after fall. This is the second time after she fell 2 weeks ago. This time the patient lost balance and fell on the right side. After the fall she immediately started experiencing severe pain and unable to ambulate. Denies any loss of consciousness or head injury. She received Zofran and fentanyl by EMS prior to arrival. In the ED the patient had x-ray which shows right femoral neck fracture and orthopedic surgery was consulted. COUNTS INCLUDE 234 BEDS AT THE [facility] Medical History Gallbladder colic Cholelithiasis Cholelithiasis Current smoker PMDD (premenstrual dysphoric disorder) Depression (~2012) Human papilloma virus (~2003) Abnormal Pap smear of cervix (~2003) Impaired fasting blood sugar Dyslipidemia Anxiety (~2012) Surgical History Anesthesia History of foot surgery (~07/2013) History of breast surgery (~2006) History of biopsy (~2009) History of History of tonsillectomy (~1982) Family History Father History of heart disease Hypertension Mother Hypertension Mental health problem Sister Mental health problem Grandfather Hypertension Grandmother Hyperlipidemia Hypertension Mental health problem Grandfather Cancer Grandmother Hypertension Social History household members: spouse and children Smoking Status: Current every day smoker Tobacco: How many years used: 20 alcohol intake: former substance use type: marijuana Meds Home Medications and Allergies Home Medications Medication Instructions Recorded Confirmed Type multivitamin 1 tab PO ONCE PM 02/16/18 04/18/23 History cholecalciferol (vitamin D3) 1 tab PO ONCE PM 11/21/20 04/18/23 History magnesium glycinate 100 mg tablet 300 mg PO ONCE PM 11/21/20 04/18/23 History citalopram 40 mg tablet (Celexa) 40 mg PO ONCE PM 06/13/22 04/18/23 History lamotrigine 25 mg tablet 25 mg PO ONCE PM 06/13/22 04/18/23 History ondansetron 4 mg disintegrating 4 mg PO Q6H PRN nausea and 03/11/23 04/18/23 Rx tablet vomiting #30 tabs Fish Oil 1,800 mg PO ONCE PM 03/19/23 04/18/23 History Arleth 150mg & l theanine 150mg 150 mg PO ONCE PM 03/19/23 04/18/23 History ashwagandha root extract 300 mg 300 mg PO DAILY 03/19/23 04/18/23 History capsule alprazolam 0.25 mg tablet 0.25 mg PO DAILY 04/16/23 04/18/23 History bupropion HCl 100 mg tablet,12 hr 100 mg PO BID 04/16/23 04/18/23 History sustained-release meloxicam 7.5 mg tablet 7.5 mg PO BID PRN pain #30 tabs 04/16/23 04/18/23 Rx norethindrone (contraceptive) 0.35 0.35 mg PO DAILY #84 tabs 04/16/23 04/18/23 Rx mg tablet Allergies Allergy/AdvReac Type Severity Reaction Status Date / Time Sulfa (Sulfonamide Allergy Intermediate Hives Verified 04/18/23 14:20 Antibiotics) Review of Systems Review of Systems ROS: Yes All systems reviewed with the patient and are negative except as otherwise documented Constitutional Constitutional: Reports as per HPI and Reports system reviewed and no additional complaints, except as documented Eyes Eyes: Reports as per HPI and Reports system reviewed and no additional complaints, except as documented ENT Ears, Nose, Mouth, and Throat: Yes as per HPI and Yes system reviewed and no additional complaints, except as documented Cardiovascular Cardiovascular: Reports system reviewed and no additional complaints, except as documented Respiratory Respiratory: Reports system reviewed and no additional complaints, except as documented Gastrointestinal Gastrointestinal: Reports system reviewed and no additional complaints, except as documented Genitourinary Genitourinary: Reports system reviewed and no additional complaints, except as documented Musculoskeletal Musculoskeletal: Reports system reviewed and no additional complaints, except as documented, Reports abnormal gait and Reports numbness Neurologic Neurologic: Reports system reviewed and no additional complaints, except as documented, Reports abnormal gait, Reports confusion and Reports numbness Psychiatric Psychiatric: Reports system reviewed and no additional complaints, except as documented and Reports confusion Exam Vital Signs (past 8 hours): - 04/17/23 23:53 04/17/23 23:53 04/18/23 00:00 Temperature Pulse Rate 92 H Respiratory Rate 18 Blood Pressure 142/65 H 128/61 Pulse Oximetry 98 Oxygen Delivery Method Oxygen Flow Rate 04/18/23 00:00 04/18/23 00:30 04/18/23 01:00 Temperature Pulse Rate 88 108 H 95 H Respiratory Rate 14 Blood Pressure 128/61 Pulse Oximetry 95 98 95 Oxygen Delivery Method Room Air Room Air Oxygen Flow Rate 04/18/23 01:29 04/18/23 01:33 04/18/23 06:00 Temperature 96.7 F L 97 F L Pulse Rate 103 H 111 H Respiratory Rate 18 18 Blood Pressure 132/77 122/71 Pulse Oximetry 98 97 Oxygen Delivery Method Room Air Oxygen Flow Rate 0 Oxygen Delivery Method Room Air Oxygen Flow Rate 0 Const General: cooperative, comfortable and well developed Orientation: alert and oriented x3 HENMT Head: normal to inspection, normocephalic and atraumatic Face and sinus: normal facial exam Mouth: oral mucosae normal and moist mucous membranes Throat: posterior oropharynx normal Eyes General: appearance normal, both eyes and all related structures Pupils: PERRL EOM: EOM intact bilaterally Neck Neck: normal visual inspection and full ROM Chest Chest: normal inspection of the chest Resp Effort & Inspection: normal respiratory effort and able to speak in complete sentences Auscultation: clear to auscultation bilaterally Cardio Palpation: normal PMI Rate: regular rate Rhythm: regular rhythm Heart Sounds: S1 normal and S2 normal GI Inspection: normal to inspection Palpation: soft and no hepatosplenomegaly Auscultation: normal bowel sounds Skin General: no rashes or lesions noted Lesions: no lesions Rashes: no rashes Trauma: no lacerations or abrasions Neuro General: patient alert, patient awake, patient oriented x3 and no focal motor deficits Cranial Nerves: CN's II-XI intact bilaterally Cognition: normal cognition Speech: speech normal Gait: normal gait Motor: muscle tone normal throughout Sensory Exam: no sensory deficits noted Extrem General: full ROM and no calf tenderness Psych Appearance: grossly normal Mental Status: mental status grossly normal Speech and Movement: speech and movement normal Objective Labs 04/18/23 07:45 04/18/23 07:45 Labs: Laboratory Results - last 24 hr 04/17/23 23:50 WBC 19.5 H RBC 4.57 Hgb 14.5 Hct 42.7 MCV 93.3 MCH 31.7 MCHC 33.9 RDW 13.2 Plt Count 268 Neut % (Auto) 78.4 H Lymph % (Auto) 11.7 L [place] % (Auto) 8.2 Eos % (Auto) 1.2 L Baso % (Auto) 0.5 Neut # (Auto) 08332 H Lymph # (Auto) 2300 [place] # (Auto) 1600 H Eos # (Auto) 200 Baso # (Auto) 100 Sodium 135 L Potassium 3.3 L Chloride 104 Carbon Dioxide 23 BUN 16 Creatinine 0.59 Estimated GFR > 60 BUN/Creatinine Ratio 27.1 H Glucose 113 H Calcium 9.0 Serum , Qual Negative Assessment & Plan Assessment and plan (1) Closed fracture of neck of right femur: Status: Acute Plan: N.p.o. Pain medications as needed Orthopedic surgery consulted and will take for likely full hip replacement IV fluids check PTH, although calcium not high at 8.5 (2) Depression: Qualifiers: Active/Remission status: currently active Depression Type: major depressive disorder Major depression episode severity: moderate Major depression recurrence: recurrent Qualified Code(s): F33.1 - Major depressive disorder, recurrent, moderate Status: Acute Plan: Restart her home medications (3) Dyslipidemia: Status: Acute Plan: Defer to her PCP (4) Impaired fasting blood sugar: Status: Acute Plan: Monitor blood sugar (5) Current smoker: Status: Acute Plan Dispo: Pending R hip surgery. Home in 1-2 days likely. Time Spent With Patient Time with patient: 50 to 69 minutes with 50% spent counseling/coordinating care Quality VTE Deep Vein Thrombosis/Pulmonary Embolism Present on Admission: No
[2023-04-18] MEDS: buPROPion SR 100 MG TAB PO (08:02)
[2023-04-18 08:41] LABS: Add Manual Diff / Slide Review NO; BUN Creatinine Ratio 26.8 (6-22); Basophils Absolute Auto 0 /uL (0-100); Basophils Percent Auto 0.2 % (0-2); Blood Urea Nitrogen 15 mg/dL (7-17); Calcium 8.5 mg/dL (8.4-10.2); Carbon Dioxide 25 mmol/L (22-32); Chloride 105 mmol/L (98-107); Eosinophils Absolute Auto 100 /uL (0-450); Eosinophils Percent Auto 0.8 % (2-4); Estimated Glomerular Filt Rate > 60 mL/min (>60); Glucose 136 mg/dL (70-100); HEMOLYSIS < 15 (0-50); Hematocrit 41.4 % (36-46); Hemoglobin 13.9 g/dL (12.0-16.0); Lymphocytes Absolute Auto 1600 /uL (1100-4500); Mean Corpuscular HGB Conc 33.5 % (30-36); Mean Corpuscular Hemoglobin 31.4 PG (26-34); Mean Corpuscular Volume 93.6 fL (80-100); Monocytes Absolute Auto 1600 /uL (0-900); Monocytes Percent Auto 11.1 % (3-14); Neutrophils Absolute Auto 10900 /uL (1500-7000); Neutrophils Percent Auto 76.9 % (50-75); Platelet Count 248 X10^3/uL (150-400); Potassium 3.4 mmol/L (3.4-5.1); Red Blood Cell Count 4.42 X10^6/uL (4.0-5.2); Red Cell Distribution Width 13.3 % (11.6-14.8); Sodium 136 mmol/L (137-145); White Blood Cell Count 14.2 X10^3/uL (4.5-11.0)
[2023-04-18 08:42] LABS: Magnesium 1.8 mg/dL (1.6-2.3)
[2023-04-18] MEDS: MAGNESIUM SULFATE 2 GM/50 ML PIGGYBACK IV (10:02)
[2023-04-18] MEDS: POTASSIUM CHLORIDE 20 MEQ TAB 40 MEQ PO (10:02)
[2023-04-18] MEDS: ONDANSETRON 4 MG/2 ML INJ IV ×2 (10:42→19:46)
[2023-04-18] MEDS: ALPRAZolam 0.25 MG TABLET PO (11:31)
--- NOTE | 2023-04-18 11:34 | CM.DANOTE ---
Patient is a 47 yo female who was admitted on 04/18/23 for GLF/Hip Fx. Pt has [employer] for insurance and her PCP is Jamie Varela. EMR was reviewed. Per MD, pt with GLF after getting tripped up in crutches and imaging shows R Femoral Neck Fx. NPO for likely Surgery. Surgeon Consult Pending. SW met bedside with pt and spouse and explained role and they confirm they live in [place] with their son and pt is active and independent at baseline. Pt works for [employer] and drives and does not typically use DME for ambulation but recently had a pinched nerve in her leg and had been using her son's crutches and got tripped up leading to the fall and fx. SW discussed possible options of outpt PT vs HH pending her progress with PT/OT post surgery and recommendations of any DME that might be needed and possible [employer] programs if needed. Spouse and pt very appreciative and spouse confirms he can case work aide mostly and assist as needed. Pt denies any need for an Excuse for Work for [id number] as it's considered self employment. Plan: SW to follow closely post hip surgery likely later today if pt can be fit into the surgical schedule and then PT/OT eval and recommendations to r/o HH vs outpt PT. JOHNATHON Bojorquez Discharge Planning/Care Management CM Discharge Assessment Start: 04/18/23 11:33 Freq: Status: Active Protocol: Document 04/18/23 11:33 BF (Rec: 04/18/23 11:34 BF [id number]) Discharge Planning Assessment Assigned Combat Systems Engineer JOHNATHON Joseph DPOA/Assigned Designee Name informally spouse Fabrice Contact Information [phone] Advance Directives? No Advance Directives on File No History Provided By Patient,Significant Other, Medical Record Has Patient been admitted in last 30 No days? Prior Living Arrangements House Household Members spouse,children Type of transporation used prior to Drives own vehicle admit Independent with ADL's Yes Is patient alert and oriented? Yes Caregiver for Another Yes: son at home DME Already Rented / Owned Crutches Patient/Family Preference Home with Home Health,OP PT Therapy Comment outpt vs HH pending surg and PT/OT Barriers to Discharge No Discharge Plan Home Community Services Physical Therapy Transportation Arrangement Spouse Additional Comment outpt vs HH pending surg and PT/OT Whiteboard Updated in Patient Room with Yes name and ext. # of Combat Systems Engineer Review Status In Process Please Provide Date Initial DC 04/18/23 Assessment Was Performed Next Review Type Continued Stay Review
[2023-04-18] MEDS: LACTATED RINGERS 1,000 ML 42 ML IV ×4 (14:28→19:17)
[2023-04-18] MEDS: SCOPOLAMINE 1 PATCH TOP (14:31)
--- NOTE | 2023-04-18 15:14 | PM.HP.1 ---
History of Present Illness History of Present Illness Date Patient Seen: 04/18/23 Time Patient Seen: 15:15 Chief complaint: left hip pain Narrative: 47-year-old female seen in the preoperative holding area in preparation for her surgery today. She has had 2 falls. One was over a week ago and she presented for care and x-rays were obtained which were normal of her hip. She had another 1 last night. It involved falling into a door. She did not fall down any height. She felt a pop at that time and had excruciating pain. Despite her extremely young age for this fracture she was brought to the hospital and found to have a femoral neck fracture. Orthopedics was consulted for management. She denies any oncologic history. She had had some mild antecedent pain after her 1st fall but had had no additional falls since her x-rays obtained on April 10 which were negative. Since her injury she is been complaining of pain in her groin [facility] Medical History Gallbladder colic Cholelithiasis Cholelithiasis Current smoker PMDD (premenstrual dysphoric disorder) Depression (~2012) Human papilloma virus (~2003) Abnormal Pap smear of cervix (~2003) Impaired fasting blood sugar Dyslipidemia Anxiety (~2012) Surgical History Anesthesia History of foot surgery (~07/2013) History of breast surgery (~2006) History of biopsy (~2009) History of History of tonsillectomy (~1982) Family History Father History of heart disease Hypertension Mother Hypertension Mental health problem Sister Mental health problem Grandfather Hypertension Grandmother Hyperlipidemia Hypertension Mental health problem Grandfather Cancer Grandmother Hypertension Social History household members: spouse and children Smoking Status: Current every day smoker Tobacco: How many years used: 20 alcohol intake: former substance use type: marijuana Meds Home Medications and Allergies Home Medications Medication Instructions Recorded Confirmed Type multivitamin 1 tab PO ONCE PM 02/16/18 04/18/23 History cholecalciferol (vitamin D3) 1 tab PO ONCE PM 11/21/20 04/18/23 History magnesium glycinate 100 mg tablet 300 mg PO ONCE PM 11/21/20 04/18/23 History citalopram 40 mg tablet (Celexa) 40 mg PO ONCE PM 06/13/22 04/18/23 History lamotrigine 25 mg tablet 25 mg PO ONCE PM 06/13/22 04/18/23 History ondansetron 4 mg disintegrating 4 mg PO Q6H PRN nausea and 03/11/23 04/18/23 Rx tablet vomiting #30 tabs Fish Oil 1,800 mg PO ONCE PM 03/19/23 04/18/23 History Arleth 150mg & l theanine 150mg 150 mg PO ONCE PM 03/19/23 04/18/23 History ashwagandha root extract 300 mg 300 mg PO DAILY 03/19/23 04/18/23 History capsule alprazolam 0.25 mg tablet 0.25 mg PO DAILY 04/16/23 04/18/23 History bupropion HCl 100 mg tablet,12 hr 100 mg PO BID 04/16/23 04/18/23 History sustained-release meloxicam 7.5 mg tablet 7.5 mg PO BID PRN pain #30 tabs 04/16/23 04/18/23 Rx norethindrone (contraceptive) 0.35 0.35 mg PO DAILY #84 tabs 04/16/23 04/18/23 Rx mg tablet Allergies Allergy/AdvReac Type Severity Reaction Status Date / Time Sulfa (Sulfonamide Allergy Intermediate Hives Verified 04/18/23 14:20 Antibiotics) Review of Systems Review of Systems ROS: Yes All systems reviewed with the patient and are negative except as otherwise documented Exam Vital Signs (past 8 hours): - 04/18/23 08:11 04/18/23 13:53 04/18/23 14:26 Temperature 97.8 F 97.6 F 98.0 F Pulse Rate 98 H 90 83 Respiratory Rate 19 19 16 Blood Pressure 111/53 L 125/61 116/71 Pulse Oximetry 97 97 97 Oxygen Delivery Method Room Air Oxygen Flow Rate 0 0 Oxygen Delivery Method Room Air Oxygen Flow Rate 0 Narrative Exam Narrative: Right lower extremity examination demonstrates no open wounds. Skin in the anterior hip is normal. No rashes. Sensation intact to light touch in L2 through S1 nerve distributions. 5/5 strength with ankle dorsiflexion. Range of motion deferred given known injury Const General: cooperative Orientation: alert and awake [facility] Head: normal to inspection Ears: hearing grossly normal bilaterally Eyes General: appearance normal, both eyes and all related structures Neck Neck: normal visual inspection Resp Effort & Inspection: normal respiratory effort and able to speak in complete sentences Cardio Pulses: other (peripheral pulses present) Skin Lesions: no lesions Rashes: no rashes Neuro General: patient alert, patient awake and moves all extremities Psych Appearance: grossly normal Objective Imaging CT scan - pelvis: My impression: CT scan and hip radiographs both reviewed. These demonstrate a displaced basicervical femoral neck fracture. There are no lytic lesions or other bony abnormalities noted anywhere in the CT scan which would be indicative of any sort of oncologic process. She has Chelsey a bone in her femoral canal. The fracture is completely displaced and somewhat comminuted. It does not extend into the greater trochanter Labs 04/18/23 07:45 04/18/23 07:45 Labs: Laboratory Results - last 24 hr 04/17/23 04/18/23 23:50 07:45 WBC 19.5 H 14.2 H RBC 4.57 4.42 Hgb 14.5 13.9 Hct 42.7 41.4 MCV 93.3 93.6 MCH 31.7 31.4 MCHC 33.9 33.5 RDW 13.2 13.3 Plt Count 268 248 Neut % (Auto) 78.4 H 76.9 H Lymph % (Auto) 11.[address] [place] % (Auto) 8.2 11.1 Eos % (Auto) 1.2 L 0.8 L Baso % (Auto) 0.5 0.2 Neut # (Auto) 31826 H 64153 H Lymph # (Auto) [address] [place] # (Auto) 1600 H 1600 H Eos # (Auto) 200 100 Baso # (Auto) 100 0 Sodium 135 L 136 L Potassium 3.3 L 3.4 Chloride 104 105 Carbon Dioxide 23 25 BUN 16 15 Creatinine 0.59 0.56 Estimated GFR > 60 > 60 BUN/Creatinine Ratio 27.1 H 26.8 H Glucose 113 H 136 H Calcium 9.0 8.5 Magnesium 1.8 Serum , Qual Negative Assessment & Plan Assessment and plan (1) Closed fracture of neck of right femur: Status: Acute Plan Patient's fracture is very unusual for a patient of her age. At 47 this is not the fracture pattern which we would expect following a ground level fall. I discussed management with her at length. Options would include intramedullary nail fixation and total hip arthroplasty. I do not feel that hemiarthroplasty is appropriate in a patient with her anticipated longevity. Based on her comminution and the fact that this is a basicervical femoral neck fracture and not an intertrochanteric fracture, I do worry about the healing potential of her fracture should I proceed with nailing. I therefore planned to proceed with a total hip arthroplasty today. Based on her young age and good apparent bone quality on her CT scan despite the fact that she fractured her femoral neck I am going to initially planned to use an uncemented stem. I will place a prophylactic cable prior to broaching. Should I note worse bone quality than her CT scan indicates, I would then transition to using a cemented stem. I discussed postoperative expectations with her at length today. Risks and benefits were discussed as well. All questions were answered. Informed consent was signed and the operative site was marked Quality VTE Deep Vein Thrombosis/Pulmonary Embolism Present on Admission: No
[2023-04-18] MEDS: CEFAZOLIN 2 GM/100 ML PREMIX 100 ML IV ×2 (16:10→22:20)
[2023-04-18] MEDS: TRANEXAMIC ACID 1,000 MG VIAL 2000 MG INJ ×2 (16:15→19:03)
--- NOTE | 2023-04-18 16:47 | SUR.OPER ---
Supine on padded [place] table with bilateral legs secured in padded positioning boots and suspended in positioning spars, operative leg in traction per surgeon. Head on one pillow. Arm on non-operative side secured on padded armboard <90 degrees abduction. Arm on operative side padded and resting across chest then secured with tape over sheet. Padded perineal post in place per surgeon.
[2023-04-18] MEDS: ACETAMINOPHEN IV 1,000 MG/100 ML VIAL 400 MG IV (16:53)
[2023-04-18] MEDS: ROPIVACAINE/EPI/CLONIDINE/KET 50 ML SYRINGE INJ (16:55)
--- NOTE | 2023-04-18 19:57 | PM.OP.1 ---
Operative Date/Time/Diagnoses Date of procedure: 04/18/23 Pre-op diagnosis: Displaced right femoral neck fracture Post-op diagnosis: same Procedure & Clinicians Procedure: Right total hip arthroplasty Same procedure as scheduled: Yes Surgeon: Cral Simpson Rug Cutter Helper: Rohan Florentino Anesthesia Type: General and Local Operative Notes Findings: Displaced basicervical fracture with comminution Prosthetic devices, grafts, tissues, transplants, or devices: Depuy Sterling 54 mm cup + 2 screws, Actis 3 HO stem, 36 mm +1.5 Biolox head Estimated Blood Loss (mL): 1,100 Procedure in detail: This 47-year-old female was admitted to the hospital with a displaced right femoral neck fracture. Given her extremely young age for this injury, I along with the medical staff endeavored to ascertain whether there were any obvious underlying factors which could have contributed to her fracture. It was not high-energy. She had merely fallen into a door at ground-level. It did not appear to be a subacute injury as she had actually fallen and gotten x-rays a week prior which appear to me to have been completely normal. There were no lytic lesions or other concerning oncologic features on her plain film radiographs or her CT scan. She smokes but has no major known underlying conditions which should predispose her to early onset osteoporosis. Given the location of her fracture and the healing issues associated with comminution in the basicervical femoral neck, I recommended proceeding with total hip arthroplasty. I discussed the relative risks and benefits of intramedullary nailing with her prior to the procedure and recommended total hip arthroplasty even despite her young age given the potential healing issues associated with a femoral neck fracture which would have been likely to shorten and could have gone on to nonunion. I felt that a hemiarthroplasty in a patient her age was not a tenable option given the anticipated longevity of a 47-year-old patient. I therefore recommended total hip arthroplasty. The procedure was discussed in detail with her and her in the preoperative holding area. All questions were answered. Informed consent was obtained. The operative site was marked. She was brought back to the operating room and anesthesia was induced. She was placed supine on the Wadsworth table. All bony prominences were padded. She was prepped and draped in the usual sterile fashion. CHRISTOPH Arzate was present for assistance with this positioning as well as soft tissue retraction and was necessary for the completion of the procedure. A timeout procedure was performed. Ancef and tranexamic acid were administered prior to the incision. A direct anterior approach to the hip was utilized. The rectus and TFL for and cobra retractors were placed on the superior and inferior femoral neck. The a sending circumflex vessels were coagulated allowing dissection of the fascia and the floor of the TFL. The capsule was incised longitudinally. Take stitches were placed in the medial and lateral leaflets and these were passed through a soft tissue protector. This was used intermittently throughout the procedure. Once the leaflets were tagged, dissection was continued down towards the lesser trochanter. The fracture was immediately evident upon entering the capsule and did not allow dissection directly to the lesser trochanter as this was where her fracture pattern ended. I therefore placed one of my Cobra retractors onto the femoral head and made a freshening cut above the fracture line. This allowed removal of the femoral head. Given the unclear etiology of her fracture I elected to send the femoral head to pathology as an entire specimen. I did not see any abnormal features in the cup femoral neck which would be indicative of an oncologic diagnosis however this fracture in a patient this young is abnormal and I wanted to ensure we were not missing anything. Once the head had been removed I removed the fracture down to the level of the base of the femoral neck. As this was close to where I would normally make a neck cut I elected to leave the fracture in its original configuration and broach off of that when I arrived at that point. I used traction and rotation to position the femoral neck away from the acetabulum. I placed retractors anteriorly and posteriorly around the acetabulum. I removed the pulmonary and the labrum. The femoral neck measured 45 mm and in the absence of templating this was the only guide that I had to use for estimating the size of the socket. I reamed up to 51 mm but found that this was still not providing a good anterior to posterior fit so I went up to 53 mm. I had this in acceptable position fluoroscopically. While preparing to move towards cuff insertion, I adjusted the anterior wall retractor and noted that it punctured the anterior wall of the femur, knocking off an anterior cortical fragment from the rim of the anterior wall. Inspection revealed that there was no associated fracture line extending back into the pelvis. I was able to continue along by initially using soft tissue retraction only and eventually by replacing the anterior wall retractor in a different position than my original position to protect the remaining anterior wall bone. After reaming up to 53 mm I was able to obtain good press-fit with a 54 mm cup. I initially placed this with a straight handle hat stock laminating machine operator and placed 2 screws in it. After further fluoroscopic evaluation I was not satisfied with the positioning of that initial cup so I removed the cup. I found that the straight handle hat stock laminating machine operator had likely been impinging against the thigh so I moved to using an offset handle hat stock laminating machine operator. This did not cause the same impingement issues against the patient's thigh which allowed me to more appropriately flatten the cup. Once satisfied I malleted it into place and replaced 2 screws. These were verified to be in appropriate position with fluoroscopic imaging. A 36 mm liner was impacted into place and verified to have locked in appropriately. And obturator nerve block was performed just inferior to the cup after withdrawing through a spinal needle to ensure that no intravascular penetration had occurred. A Hohmann retractor was placed over the greater trochanter and traction was applied to the femur. I dissected the lateral capsule off the greater trochanter around to the nose of the femur and allowed this to retract medially. I then placed the Wadsworth hook and externally rotated the hip to 90 degrees of external rotation and then hyperextended and abducted the foot while manipulating the femur with the Wadsworth hook to ensure that it did not impinge against the posterior wall. I placed retractors over the calcar and the greater trochanter and performed a conjoined tendon release. I attempted to place a prophylactic cable in the broaching position but found that I could not manipulate the guide far enough around the femur to be able to accomplish this. I therefore removed all retractors and return to neutral hip extension where I was able to successfully place a cable passer all the way around the back of the femur from medial to lateral. I placed the cable and tensioned it and cut it. I then returned to the broaching position and replaced all of the retractors. The conjoined tendon release was helpful in further elevating the femur. I considered using cement however the patient's bone quality was not discernibly poor based on my assessment during the broaching and reaming processes and she had Chelsey a bone on her radiograph. I felt that utilization of a robustly metaphyseal feeling collared stem with good anterior to posterior fit and a prophylactic cable would be appropriate in a patient of this extremely young age for a femoral neck fracture. I was able to broach up to a size 3 broach using a combination of rongeuring away lateral bone, using a curved rasp to removal with a medial bone, and using intermediary broaches as rasps to remove lateral bone. A size 3 broach gave me a good rotational stability. Not knowing what to expect in terms of templating I placed the smallest neck and head options, a +1.5 head and a standard offset neck. I removed all of the retractors and reduce this. I noted appropriate length on my fluoroscopic imaging on an AP pelvis but was not satisfied with the offset as it looked less than the contralateral side. The hip was stable through a maximum external rotation test but dislocated in terminal extension with a 45 degree drop test. I remove the head and neck and replaced them with a high offset neck with the same head. This resolved the instability noted during the 45 degree drop test. Returning to the broaching position and replacing the retractors, I calcar planed and placed a final stem. This was a 3 high offset Actis stem. I placed a trial +1.5 mm head on that and reduced it. I found this appropriate and leg length and offset fluoroscopically and it was stable with maximum external rotation and a 45 degree drop test. I return to the broaching position and impacted on a ceramic +1.5 mm head onto a clean dry trunnion. I removed all the retractors and reduced the hip and tested stability again. The hip was stable with the same test. I got fluoroscopic imaging while Betadine was soaking in the wound. This showed appropriate leg length and offset. I externally rotated the hip to evaluate for any fractures propagating past my prophylactic cable which had been placed before I had performed any broaching. I did not visualize any. I irrigated the wound. Another dose of tranexamic acid was administered. I closed the hip using Vicryl in the capsule and several layers of stratafix in the TFL fascia as well as the subcutaneous tissue and dermis. I applied Dermabond. I applied a kehinde incisional wound VAC dressing because she is a smoker. I had counseled her to quit smoking before the surgery. She was transferred from the Wadsworth table to the stretcher and taken to the PACU where she awoke without complications. She was noted to have intact dorsiflexion and plantarflexion at her ankle and hallux postoperatively and had no discernible immediate postoperative issues when examined in the PACU. Post-operative Plan for aftercare: WBAT Aspirin 81 BID PT Mobilize and DC home Outpatient osteoporosis workup Smoking cessation
[2023-04-18] MEDS: HYDROMORPHONE 1 MG INJ IV (20:03)
[2023-04-18 20:15] LABS: Hematocrit 33.6 % (36-46); Hemoglobin 11.3 g/dL (12.0-16.0); Mean Corpuscular HGB Conc 33.5 % (30-36); Mean Corpuscular Hemoglobin 31.5 PG (26-34); Mean Corpuscular Volume 93.9 fL (80-100); Platelet Count 330 X10^3/uL (150-400); Red Blood Cell Count 3.58 X10^6/uL (4.0-5.2); Red Cell Distribution Width 13.1 % (11.6-14.8); White Blood Cell Count 27.4 X10^3/uL (4.5-11.0)
[2023-04-18 20:16] LABS: Add Manual Diff / Slide Review YES
[2023-04-18 20:27] LABS: Neutrophils Absolute Manual 26030 /uL (3000-5900); RBC Morphology Normal Morphology; Total Cells Counted 100
[2023-04-18] MEDS: LACTATED RINGERS 1,000 ML 100 ML IV (21:11)
[2023-04-18] MEDS: METOCLOPRAMIDE 10 MG/2 ML INJ 5 MG IV (22:18)
[2023-04-18] MEDS: DOCUSATE 100 MG CAPSULE PO (22:23)
[2023-04-18] MEDS: ASPIRIN EC 81 MG TABLET PO (22:24)
[2023-04-18] MEDS: CITALOPRAM 10 MG TABLET 40 MG PO (22:24)
[2023-04-19] MEDS: OXYCODONE IR 10 MG TABLET PO ×4 (02:25→15:00)
[2023-04-19 04:10] VITALS: BP 106/42; PULSE 93; RESP 18; TEMP 37.1; O2SAT 95
[2023-04-19 05:12] LABS: Add Manual Diff / Slide Review NO; Basophils Absolute Auto 100 /uL (0-100); Basophils Percent Auto 0.4 % (0-2); Eosinophils Absolute Auto 0 /uL (0-450); Hematocrit 26.7 % (36-46); Lymphocytes Absolute Auto 800 /uL (1100-4500); Lymphocytes Percent Auto 4.2 % (25-40); Mean Corpuscular HGB Conc 33.6 % (30-36); Mean Corpuscular Hemoglobin 31.7 PG (26-34); Mean Corpuscular Volume 94.4 fL (80-100); Monocytes Absolute Auto 1100 /uL (0-900); Monocytes Percent Auto 5.7 % (3-14); Neutrophils Absolute Auto 17600 /uL (1500-7000); Neutrophils Percent Auto 89.7 % (50-75); Platelet Count 220 X10^3/uL (150-400); Red Blood Cell Count 2.83 X10^6/uL (4.0-5.2); Red Cell Distribution Width 13.4 % (11.6-14.8); White Blood Cell Count 19.6 X10^3/uL (4.5-11.0)
[2023-04-19 05:21] LABS: BUN Creatinine Ratio 20.8 (6-22); Blood Urea Nitrogen 11 mg/dL (7-17); Calcium 7.8 mg/dL (8.4-10.2); Carbon Dioxide 24 mmol/L (22-32); Chloride 106 mmol/L (98-107); Estimated Glomerular Filt Rate > 60 mL/min (>60); Glucose 137 mg/dL (70-100); HEMOLYSIS < 15 (0-50); Potassium 4.6 mmol/L (3.4-5.1); Sodium 131 mmol/L (137-145)
[2023-04-19] MEDS: CEFAZOLIN 2 GM/100 ML PREMIX 100 ML IV (05:36)
[2023-04-19] MEDS: polyethylene glycoL 3350 17 GM POWD.PACK PO (08:11)
[2023-04-19] MEDS: ASPIRIN EC 81 MG TABLET PO (08:11)
[2023-04-19] MEDS: DOCUSATE 100 MG CAPSULE PO (08:11)
[2023-04-19] MEDS: buPROPion SR 100 MG TAB PO ×2 (08:13→15:00)
[2023-04-19 08:37] VITALS: BP 102/42; PULSE 92; RESP 16; TEMP 37.1; O2SAT 97
--- NOTE | 2023-04-19 08:38 | PM.PNPO.1 ---
Subjective Subjective Interval history: Kaci was found awake with her partner in the room. She is in good spirits and in less pain then she expected. She denies any nausea, vomiting, fever or chills. She feels ready to return home. Exam Vital Signs (past 8 hours): - 04/19/23 04:10 Temperature 98.7 F Pulse Rate 93 H Respiratory Rate 18 Blood Pressure 106/42 L Pulse Oximetry 95 Oxygen Flow Rate 0 Oxygen Delivery Method Room Air Oxygen Flow Rate 0 Narrative Exam Narrative: Dressing looks clean and dry. 5/5 strength in hip flexors, quadriceps, hamstrings, DF, PF, EHL bilaterally. Sensation to light touch intact throughout BLE. Calves soft, compressible, nontender. Const General: cooperative, healthy appearing and comfortable Orientation: alert and oriented x3 Resp Effort & Inspection: normal respiratory effort and able to speak in complete sentences Objective Labs 04/19/23 04:50 04/19/23 04:50 Labs: Laboratory Results - last 24 hr 04/18/23 04/18/23 04/19/23 07:45 20:00 04:50 WBC 14.2 H 27.4 H D 19.6 H RBC 4.42 3.58 L 2.83 L Hgb 13.9 11.3 L 9.0 L Hct 41.4 33.6 L 26.7 L MCV 93.6 93.9 94.4 MCH 31.4 31.5 31.7 MCHC 33.5 33.5 33.6 RDW 13.3 13.1 13.4 Plt Count 248 330 220 Neut % (Auto) 76.9 H Not Reportable 89.7 H Lymph % (Auto) 11.0 L Not Reportable 4.2 L [place]as[place] % (Auto) 11.1 Not Reportable 5.7 Eos % (Auto) 0.8 L Not Reportable 0.0 L Baso % (Auto) 0.2 Not Reportable 0.4 Neut # (Auto) 34933 H 78151 H Lymph # (Auto) 1600 Not Reportable 800 L [place] # (Auto) 1600 H Not Reportable 1100 H Eos # (Auto) 100 0 Baso # (Auto) 0 Not Reportable 100 Total Counted 100 Seg Neutrophils % 95.0 H Lymphocytes % (Manual) 4.0 L Monocytes % (Manual) 1.0 L Neutrophils # (Manual) 94810 H RBC Morphology Normal morphology Sodium 136 L 131 L Potassium 3.4 4.6 D Chloride 105 106 Carbon Dioxide 25 24 BUN 15 11 Creatinine 0.56 0.53 Estimated GFR > 60 > 60 BUN/Creatinine Ratio 26.8 H 20.8 Glucose 136 H 137 H Calcium 8.5 7.8 L Magnesium 1.8 PFSH Medical History Gallbladder colic Cholelithiasis Cholelithiasis Current smoker PMDD (premenstrual dysphoric disorder) Depression (~2012) Human papilloma virus (~2003) Abnormal Pap smear of cervix (~2003) Impaired fasting blood sugar Dyslipidemia Anxiety (~2012) Surgical History Anesthesia History of foot surgery (~07/2013) History of breast surgery (~2006) History of biopsy (~2009) History of History of tonsillectomy (~1982) Family History Father History of heart disease Hypertension Mother Hypertension Mental health problem Sister Mental health problem Grandfather Hypertension Grandmother Hyperlipidemia Hypertension Mental health problem Grandfather Cancer Grandmother Hypertension Social History household members: spouse and children Smoking Status: Current every day smoker Tobacco: How many years used: 20 alcohol intake: former substance use type: marijuana Assessment & Plan Post-op Postoperative Procedures: Procedures Operation Date: 04/18/23 15:30 Actual Procedure Side Surgeon p Total Hip Arthroplasty/Anterior Approach - cemented Right Carl Simpson MD Postoperative day: 1 Postoperative status: doing well Postoperative plan: routine post-op care, ambulate and discharge Postoperative plan narrative: Pending PT & Medicine clearance, Verenice is ready for discharge to home. Quality VTE Deep Vein Thrombosis/Pulmonary Embolism Present on Admission: No
[2023-04-19] MEDS: ONDANSETRON 4 MG ODT SL ×2 (08:41→15:00)
--- NOTE | 2023-04-19 08:50 | PT.IIE ---
Current Diagnoses Hyperlipidemia, unspecified (04/18/23) Nicotine dependence, unspecified, uncomplicated (04/18/23) Major depressive disorder, recurrent, moderate (04/18/23) Impaired fasting glucose (04/18/23) Fracture of unspecified part of neck of right femur, initial encounter for closed fracture (04/18/23) Surgery Performed Operation Date: 04/18/23 15:30 Actual Procedures p Total Hip Arthroplasty/Anterior Approach - cemented(Right) - Carl Simpson MD Surgical History (Last Reviewed 04/19/23 @ 08:43 by Rohan Florentino PA-C) Anesthesia History of biopsy (~2009) History of breast surgery (~2006) History of History of foot surgery (~07/2013) History of tonsillectomy (~1982) Medical History (Last Reviewed 04/19/23 @ 08:43 by Rohan Florentino PA-C) Abnormal Pap smear of cervix (~2003) Anxiety (~2012) Cholelithiasis Cholelithiasis Current smoker Depression (~2012) Dyslipidemia Gallbladder colic Human papilloma virus (~2003) Impaired fasting blood sugar PMDD (premenstrual dysphoric disorder) Physical Therapy Inpatient Evaluation/Re-Eval M1 PT/OT-IP Prior Functional Status Start: 04/19/23 11:30 Freq: NEEDED Status: Active Protocol: Document 04/19/23 08:50 AB (Rec: 04/19/23 11:43 AB [id number]) Medical Review Prior Functional Status Medical History Reviewed Yes Communication able to make needs known Mobility and Gait pt stated that she is independent with all mobilities and ambulation without AD Social History Household Members spouse,children Living Arrangements House Number of Floors (Floors) One Floor Number of Stairs To Enter/Railing? 1 platform step + 2 steps without rals to enter the house Home Environment Standard Height Toilet,Walk in Shower Home Equipment Shower Seat without Backrest, Hand Held Shower Additional Social History Comment pt stated that she might ask her mother to come in to assist her when spouse is not around M2 PT-IP Current Condition Start: 04/19/23 11:30 Freq: NEEDED Status: Active Protocol: Document 04/19/23 08:50 AB (Rec: 04/19/23 11:43 AB [email or web address]) Physical Therapy Current Condition Current Condition Evaluation Date 04/19/23 Treatment Diagnosis R femur fx s/p R ADOLFO anterior approach; difficulty in walking Onset Date 04/18/23 M3 PT-IP Subjective Start: 04/19/23 11:30 Freq: NEEDED Status: Active Protocol: Document 04/19/23 08:50 AB (Rec: 04/19/23 11:43 AB [id number]) Subjective Physical Therapy Visit Type Type Initial Evaluation Visit Start Time 08:50 Visit Stop Time 09:45 Total Visit Minutes 55 Number of LOG CUTTER Visits 0 Physical Therapy Visit Comments Patient Comments agreeable to do PT Therapy Pain Assessment Pain When Pain Assessed At Rest Pain Present Pain Present Pain Reported Location Right Hip Intensity 7 Scale Used increases with mobility Pain Behaviors Facial Grimacing,Guarding, Wincing Pain Management Techniques Apply Cold,Distraction, Modification of Treatment,Re- positioning,Timing of Activity with Medications M4 PT-IP Mobility and Gait Start: 04/19/23 11:30 Freq: NEEDED Status: Active Protocol: Document 04/19/23 08:50 AB (Rec: 04/19/23 11:43 AB [email or web address]) PT-Bed Mobility Assessment Supine to Sit Supine to Sit Maximum Assistance PT-Transfer Assessment Sit to and From Stand Sit to and from Stand Moderate Assistance,1 Person Assistance,Use of Upper Extremities Equipment Transfer Assistive Device Gait Belt,Front Wheeled Walker Orthotic/Prosthetic Devices or Brace: No Transfers Transfer Destination Chair Transfer Technique ambulated Transfer Ability Level of Assist Minimal Assistance,1 Person Assistance,Use of Upper Extremities Comments Mobility Comments pt supine in bed and agreeable to do PT. BP: 112/46. Post- op folder provided to pt and reviewed contents. pt educated on anterior hip precautions and WBAT on RLE. pt completed supine to sit max A and max cues for techniques . pt requiring assist to move RLE to EOB. c/o increase pain . pt able to sit on EOB SBA. c/o slight dizziness but dissipated after resting. BP in sittin/47. pt completed sit to stand mod A and cues. ambulated in room using FWW min A ~ 20 ft. presents with decrease LE elevation and increase RLE guarding. pt agreed to sit up on the chair. positioned pt on the chair. call light and table placed within reach. c/ o dizziness. BP checked: 110/ 51. caregiver training set up at 1pm this afternoon. Gait Assessment Gait Gait Assistance Required: Minimum Assistance Distance (Feet) 20 Able to Maintain Weight Bearing Status Yes During Gait Assistive Devices Assistive Device Gait Belt,Front Wheeled Walker Orthotic/Prosthetic Devices or Brace: No Gait Deviations General Gait Pattern Antalgic,Decreased Stride Length,Decreased Feet Clearance Factors Limiting Gait Function Factors Limiting Gait Function Decreased Activity Tolerance, Decreased Strength,Limited Range of Motion,Pain,Poor Balance,Poor Safety Awareness PT-Balance Assessment Sitting Balance and Reactions Static Sitting Balance Ability Good Dynamic Sitting Balance Ability Good Standing Balance and Reactions Static Standing Balance Ability Fair Dynamic Standing Balance Ability Fair Device Used FWW M5 PT-IP Objective Assessments Start: 04/19/23 11:30 Freq: NEEDED Status: Active Protocol: Document 04/19/23 08:50 AB (Rec: 04/19/23 11:43 AB [email or web address]) Orientation Orientation/Cognition Level of Alertness Alert Orientation Name,Place,Situation Language Function Ability No Deficits Noted Safety Awareness Decreased Safety Awareness Memory Description No Deficits Noted Gross Range of Motion Lower Extremity ROM Assessment Within Functional Limits Strength Lower Extremity Strength Assessment Right Impaired Hip 3-/5 Knee 4-/5 Sensation Assessment Sensation Gross Sensation WNL Muscle Tone Muscle Tone WNL Yes M6 PT-IP Treatment Start: 04/19/23 11:30 Freq: NEEDED Status: Active Protocol: Document 04/19/23 08:50 AB (Rec: 04/19/23 11:43 AB [id number]) Physical Therapy Treatment Education Education Provided Precautions,Weight Bearing Status,Post-Op Packet,Safety M7 PT-IP Assessment and Plan Start: 04/19/23 11:30 Freq: NEEDED Status: Active Protocol: Document 04/19/23 08:50 AB (Rec: 04/19/23 11:43 AB [email or web address]) PT Summary Assessment and Plan Potential Rehabilitation Potential Fair Status of Condition at Evaluation Evolving Summary Impairments Pain,ROM,Strength,Balance, Coordination,Sensation,Tone, Cognition,Bed Mobility, Transfers,Gait,Activity Tolerance Assessment Summary pt is a 47 y/o F who had a fall and sustained a R femur fx. pt underwent R ADOLFO anterior approach and has anterior hip precautions and is WBAT on RLE. pt requiring max A and max cues for bed mobility, mod A for sit to stand and min A for ambulation using FWW but was only able to walk ~ 20 ft due to c/o increase pain and fatigue. Caregiver training set up for this afternoon at 1pm. will continue to assess progress. Goals Bed Mobility Goal Standby Assistance Transfer Goal Standby Assistance,Front Wheeled Walker Gait Goal Standby Assistance,Front Wheel Walker Gait Distance 150 Other Goals improve bed mobility, transfers, ambulation using FWW mod I 300 ft up/down 1 platform step using FWW SBA up/down 2 steps using SPC/CLASSER CGA Days to Meet Goals 5 Frequency of Treatment Frequency Of Treatment Twice a Day Treatment Plan Physical Therapy Treatment Plan Bed Mobility Training,Transfer Training,Gait Training, Therapeutic Exercise,Balance Retraining,Post Op Education, Discharge Planning,Hot or Cold Pack,Neuromuscular Re-ed, Coordination Retraining,Manual Therapy Precautions Anterior Hip Precautions No Hip Extension,No Hip External Rotation Weight Bearing Status Weight Bearing Status Weight Bear as Tolerated Allowed Weight Bearing Amount (enter % RLE WBAT or #) (%) Recommendations To Nursing Amount of Assist Needed 1 Person Assist Discharge Recommendations PT Discharge Recommendations Home with Assistance,Home with / Assist Available,Home Health,Outpatient PT Equipment Needed for Home Before FWW, SPC Discharge Transportation Needs at Discharge Private Vehicle,Wheelchair/ Cabulance
[2023-04-19] MEDS: ALPRAZolam 0.25 MG TABLET PO (10:12)
--- NOTE | 2023-04-19 13:00 | PT.IPTN ---
Current Diagnoses Hyperlipidemia, unspecified (04/18/23) Nicotine dependence, unspecified, uncomplicated (04/18/23) Major depressive disorder, recurrent, moderate (04/18/23) Impaired fasting glucose (04/18/23) Fracture of unspecified part of neck of right femur, initial encounter for closed fracture (04/18/23) Surgery Performed Operation Date: 04/18/23 15:30 Actual Procedures p Total Hip Arthroplasty/Anterior Approach - cemented(Right) - Carl Simpson MD Physical Therapy Treatment Note M2 PT-IP Current Condition Start: 04/19/23 11:30 Freq: NEEDED Status: Active Protocol: Document 04/19/23 08:50 AB (Rec: 04/19/23 11:43 AB [id number]) Physical Therapy Current Condition Current Condition Evaluation Date 04/19/23 Treatment Diagnosis R femur fx s/p R ADOLFO anterior approach; difficulty in walking Onset Date 04/18/23 M3 PT-IP Subjective Start: 04/19/23 11:30 Freq: NEEDED Status: Active Protocol: Document 04/19/23 13:30 TS (Rec: 04/19/23 13:59 TS [id number]) Subjective Physical Therapy Visit Type Type Treatment Note Visit Start Time 13:00 Visit Stop Time 13:29 Total Visit Minutes 29 Notes Spouse present for caregiver training. Number of SLOT TECHNICIAN Visits 1 Physical Therapy Visit Comments Patient Comments Pt found resting in chair, reports she is feeling better this afternoon. She is worried about having to walk up her driveway that is on an incline for about 20'. Pt is agreeable to PT. Therapy Pain Assessment Pain When Pain Assessed During Mobility Pain Present Pain Present Pain Reported M4 PT-IP Mobility and Gait Start: 04/19/23 11:30 Freq: NEEDED Status: Active Protocol: Document 04/19/23 13:30 TS (Rec: 04/19/23 13:59 TS [id number]) PT-Transfer Assessment Sit to and From Stand Sit to and from Stand Standby Assistance,Use of Upper Extremities Equipment Transfer Assistive Device Gait Belt,Front Wheeled Walker Orthotic/Prosthetic Devices or Brace: No Comments Mobility Comments Pt recalled 2/2 anterior hip precautions prior to mobility. Spouse was instructed in and performed donning of gait belt in chair. Sit to stand from chair SBA with FWW, pt required cues for BUE support to push from arms of chair. She ambulated SBA with FWW ~ 100' with slow step to gait, she had no buckling or LOB, denied any dizziness or lightheadedness. Back in room pt performed steps x2 with FWW on platform step CGA, spouse and pt were instructed in proper sequencing. She had a slight buckle on R side when descending step, corrected balance with use of FWW. She performed steps x2 with use of quad cane and handheld assist from spouse. Pt and spouse were educated on the proper step sequencing. Pt was left back in chair, spouse in room, RN notified. Gait Assessment Gait Gait Assistance Required: Standby Assistance Distance (Feet) 100 Able to Maintain Weight Bearing Status Yes During Gait Assistive Devices Assistive Device Gait Belt,Front Wheeled Walker Orthotic/Prosthetic Devices or Brace: No Gait Deviations General Gait Pattern Antalgic,Decreased Stride Length,Decreased Feet Clearance Factors Limiting Gait Function Factors Limiting Gait Function Decreased Activity Tolerance, Decreased Strength,Limited Range of Motion,Pain,Poor Balance Comments Gait Comments See mobility comments. PT-Balance Assessment Sitting Balance and Reactions Static Sitting Balance Ability Good Dynamic Sitting Balance Ability Good Standing Balance and Reactions Static Standing Balance Ability Good Dynamic Standing Balance Ability Fair Device Used FWW M5 PT-IP Objective Assessments Start: 04/19/23 11:30 Freq: NEEDED Status: Active Protocol: Document 04/19/23 08:50 AB (Rec: 04/19/23 11:43 AB [id number]) Orientation Orientation/Cognition Level of Alertness Alert Orientation Name,Place,Situation Language Function Ability No Deficits Noted Safety Awareness Decreased Safety Awareness Memory Description No Deficits Noted Gross Range of Motion Lower Extremity ROM Assessment Within Functional Limits Strength Lower Extremity Strength Assessment Right Impaired Hip 3-/5 Knee 4-/5 Sensation Assessment Sensation Gross Sensation WNL Muscle Tone Muscle Tone WNL Yes M6 PT-IP Treatment Start: 04/19/23 11:30 Freq: NEEDED Status: Active Protocol: Document 04/19/23 13:30 TS (Rec: 04/19/23 13:59 TS [id number]) Physical Therapy Treatment Education Education Provided Precautions,Weight Bearing Status,Post-Op Packet,Safety M7 PT-IP Assessment and Plan Start: 04/19/23 11:30 Freq: NEEDED Status: Active Protocol: Document 04/19/23 13:30 TS (Rec: 04/19/23 13:59 TS [id number]) PT Summary Assessment and Plan Potential Rehabilitation Potential Good Summary Impairments Pain,ROM,Strength,Balance, Coordination,Sensation,Tone, Cognition,Bed Mobility, Transfers,Gait,Activity Tolerance Progress Towards Goals Progressing Toward Goals Assessment Summary Kaci is making good progress with her mobility this session. She progressed her sit to stand to SBA from chair with use of FWW. She progressed her gait to ~100' SBA with FWW, had no buckling or LOB, denied any dizziness or lightheadedness. She performed stairs x2 on platform step with FWW CGA from spouse. She had x1 buckling on R side when descending step, corrected balance with use of FWW. She performed steps x2 with quad cane and handheld assist from spouse CGA with no buckling or LOB. Pt would like to stay one more night. She is worried about having the strength to go up the incline for her driveway into her house. She mentioned potentially borrowing a w/c from a friend to assist her up her driveway. Spouse was instructed in and performed donning of gait belt , stairs with pt and educated on proper handplacement on gait belt. Spouse obtained FWW and quad cane. Goals Bed Mobility Goal Standby Assistance Transfer Goal Standby Assistance,Front Wheeled Walker Gait Goal Standby Assistance,Front Wheel Walker Gait Distance 150 Other Goals improve bed mobility, transfers, ambulation using FWW mod I 300 ft up/down 1 platform step using FWW SBA up/down 2 steps using SPC/WIRE FENCE BUILDER CGA Days to Meet Goals 5 Frequency of Treatment Frequency Of Treatment Twice a Day Treatment Plan Physical Therapy Treatment Plan Bed Mobility Training,Transfer Training,Gait Training, Therapeutic Exercise,Balance Retraining,Post Op Education, Discharge Planning,Hot or Cold Pack,Neuromuscular Re-ed, Coordination Retraining,Manual Therapy Precautions Anterior Hip Precautions No Hip Extension,No Hip External Rotation Weight Bearing Status Weight Bearing Status Weight Bear as Tolerated Allowed Weight Bearing Amount (enter % RLE WBAT or #) (%) Recommendations To Nursing Amount of Assist Needed 1 Person Assist Discharge Recommendations PT Discharge Recommendations Home with Assistance,Home with 24/ Assist Available,Home Health,Outpatient PT Transportation Needs at Discharge Private Vehicle
--- NOTE | 2023-04-19 14:08 | CM.DPC ---
DCP Cont. Reviewed EMR for medical status updates. Pt has been cleared by PT for home d/c. Supportive spouse at bedside will transport home. Anticipated d/c this afternoon, pending d/c order.
--- NOTE | 2023-04-19 14:16 | PM.DS.1 ---
History of Present Illness History of Present Illness Date Patient Seen: 04/18/23 Time Patient Seen: 15:15 Chief complaint: left hip pain Narrative: 47 years old female presents to the ER with right hip pain after fall. This is the second time after she fell 2 weeks ago. This time the patient lost balance and fell on the right side. After the fall she immediately started experiencing severe pain and unable to ambulate. Denies any loss of consciousness or head injury. She received Zofran and fentanyl by EMS prior to arrival. In the ED the patient had x-ray which shows right femoral neck fracture and orthopedic surgery was consulted. Discharge Providers Provider Date of admission: 04/18/23 00:25 Discharge Date: 04/19/23 Primary care physician: TALIA Sher Consults: 04/18/23 00:11 Consult to Orthopedic Surgery Stat Comment: Consulting Provider: Maryanne White Reason for consultation: hip fracture Has provider been notified: Yes 04/18/23 20:37 Consult to Discharge Planning Routine Comment: Consult to Occupational Therapy Evaluate & Treat Comment: Physician Instructions: Evaluate and treat Consult to Physical Therapy Evaluate & Treat Comment: Physician Instructions: post op ADOLFO protocol Discharge provider: Jonny Aburto DO Summary Hospital Course Discharge Diagnosis: (1) Closed fracture of neck of right femur: Status: Acute Plan: N.p.o. Pain medications as needed Orthopedic surgery consulted and will took for full hip replacement on 04/18 IV fluids checked PTH and still pending, although calcium not high at 8.5 (2) Depression: Qualifiers: Active/Remission status: currently active Depression Type: major depressive disorder Major depression episode severity: moderate Major depression recurrence: recurrent Qualified Code(s): F33.1 - Major depressive disorder, recurrent, moderate Status: Acute Plan: Restart her home medications (3) Dyslipidemia: Status: Acute Plan: Defer to her PCP (4) Impaired fasting blood sugar: Status: Acute Plan: Monitor blood sugar (5) Current smoker: Status: Acute Hospital Course: Admitted for R proximal femur fracture from fall. Ortho took for surgery and replaced hip. Patient was advised to have her PCP do an osteoporosis workup and may need endo referral given this type of fracture at such a young age. Her pain was adequately controlled post-op and PT rec walker at home which her partner obtained. She was discharged home. Exam Vital Signs (past 8 hours): - 04/19/23 08:37 Temperature 98.8 F Pulse Rate 92 H Respiratory Rate 16 Blood Pressure 102/42 L Pulse Oximetry 97 Oxygen Flow Rate 0 Oxygen Delivery Method Room Air Oxygen Flow Rate 0 Const General: cooperative, comfortable and well developed Orientation: alert and oriented x3 [facility] Head: normal to inspection, normocephalic and atraumatic Face and sinus: normal facial exam Mouth: oral mucosae normal and moist mucous membranes Throat: posterior oropharynx normal Eyes General: appearance normal, both eyes and all related structures Pupils: PERRL EOM: EOM intact bilaterally Neck Neck: normal visual inspection and full ROM Chest Chest: normal inspection of the chest Resp Effort & Inspection: normal respiratory effort and able to speak in complete sentences Auscultation: clear to auscultation bilaterally Cardio Palpation: normal PMI Rate: regular rate Rhythm: regular rhythm Heart Sounds: S1 normal and S2 normal GI Inspection: normal to inspection Palpation: soft and no hepatosplenomegaly Auscultation: normal bowel sounds Skin General: no rashes or lesions noted Lesions: no lesions Rashes: no rashes Trauma: no lacerations or abrasions Neuro General: patient alert, patient awake, patient oriented x3 and no focal motor deficits Cranial Nerves: CN's II-XI intact bilaterally Cognition: normal cognition Speech: speech normal Motor: muscle tone normal throughout Sensory Exam: no sensory deficits noted Extrem General: full ROM and no calf tenderness Psych Appearance: grossly normal Mental Status: mental status grossly normal Speech and Movement: speech and movement normal Objective Labs 04/19/23 04:50 04/19/23 04:50 Labs: Laboratory Results - last 24 hr 04/18/23 04/19/23 20:00 04:50 WBC 27.4 H D 19.6 H RBC 3.58 L 2.83 L Hgb 11.3 L 9.0 L Hct 33.6 L 26.7 L MCV 93.9 94.4 MCH 31.5 31.7 MCHC 33.5 33.6 RDW 13.1 13.4 Plt Count 330 220 Neut % (Auto) Not Reportable 89.7 H Lymph % (Auto) Not Reportable 4.2 L [place] % (Auto) Not Reportable 5.7 Eos % (Auto) Not Reportable 0.0 L Baso % (Auto) Not Reportable 0.4 Neut # (Auto) 24207 H Lymph # (Auto) Not Reportable 800 L [place] # (Auto) Not Reportable 1100 H Eos # (Auto) 0 Baso # (Auto) Not Reportable 100 Total Counted 100 Seg Neutrophils % 95.0 H Lymphocytes % (Manual) 4.0 L Monocytes % (Manual) 1.0 L Neutrophils # (Manual) 99828 H RBC Morphology Normal morphology Sodium 131 L Potassium 4.6 D Chloride 106 Carbon Dioxide 24 BUN 11 Creatinine 0.53 Estimated GFR > 60 BUN/Creatinine Ratio 20.8 Glucose 137 H Calcium 7.8 L PFSH Medical History Gallbladder colic Cholelithiasis Cholelithiasis Current smoker PMDD (premenstrual dysphoric disorder) Depression (~2012) Human papilloma virus (~2003) Abnormal Pap smear of cervix (~2003) Impaired fasting blood sugar Dyslipidemia Anxiety (~2012) Surgical History Anesthesia History of foot surgery (~07/2013) History of breast surgery (~2006) History of biopsy (~2009) History of History of tonsillectomy (~1982) Family History Father History of heart disease Hypertension Mother Hypertension Mental health problem Sister Mental health problem Grandfather Hypertension Grandmother Hyperlipidemia Hypertension Mental health problem Grandfather Cancer Grandmother Hypertension Social History household members: spouse and children Smoking Status: Current every day smoker Tobacco: How many years used: 20 alcohol intake: former substance use type: marijuana Discharge Plan Discharge Plan Patient Disposition: Home Provider Discharge Comment: You fell and broke your hip. Please speak with your PCP about an osteoporosis workup. You received a new hip with ortho. I've sent pain meds, aspirin for 4 weeks to prevent blood clots, and zofran to your pharmacy. Discharge orders & Medications Prescriptions: New aspirin 81 mg Tablet,Delayed Release (Dr/Ec) 81 mg PO BID 28 Days Qty: 56 0RF oxycodone 5 mg Tablet 5 mg PO Q4HR PRN (Reason: Pain, Moderate (4-6)) Qty: 30 0RF Continued citalopram [Celexa] 40 mg tablet 40 mg PO ONCE PM lamotrigine 25 mg tablet 25 mg PO ONCE PM cholecalciferol (vitamin D3) 1 tab PO ONCE PM magnesium glycinate 100 mg tablet 300 mg PO ONCE PM [place] 150mg & l theanine 150mg 150 mg PO ONCE PM Fish Oil 1,800 mg PO ONCE PM ashwagandha root extract 300 mg capsule 300 mg PO DAILY alprazolam 0.25 mg tablet 0.25 mg PO DAILY bupropion HCl 100 mg tablet sustained-release 12 hr 100 mg PO BID Rx Instructions: 0900/1530 meloxicam 7.5 mg tablet 7.5 mg PO BID PRN (Reason: pain) Qty: 30 1RF norethindrone (contraceptive) 0.35 mg tablet 0.35 mg PO DAILY Qty: 84 3RF multivitamin Tablet 1 tab PO ONCE PM ondansetron 4 mg tablet,disintegrating 4 mg PO Q6H PRN (Reason: nausea and vomiting) Qty: 30 0RF Follow up/Referrals: Jamie Varela ARNP [Primary Care Provider] - 2 Weeks Visit Report/Discharge Packet Stand Alone Forms: Patient Portal/API, Stroke Signs & Symptoms Discharge Data Primary Care Provider: Jamie Varela Quality VTE Deep Vein Thrombosis/Pulmonary Embolism Present on Admission: No
--- NOTE | 2023-04-19 16:28 | PC.NURSE ---
Day shift: Left unit at approx 1615 via WC. Friend is driving her home. CMS intact. Cleared by PT. Pt has voided post [place]. Pain well controlled per AUG. Dressing remains CDI and green light functioning. Paperwork signed and all questions answered. Pt has all personal belongings. Encouraged Pt to call [facility] on Friday to make f/u appointment. Gave [facility] office number to call.
[2023-04-22 07:39] LABS: Calcium 7.6 mg/dL (8.7-10.2); Parathyroid Hormone, Intact 67 pg/mL (15-65)
== END 2023-04-19 16:31 | disposition home or self-care (01) | DRG 522 ==
LOC: ED 04-18 00:23 → AC 04-18 00:26
PROVIDERS: Student in an Organized Health Care Education/Training Program; Admitting Provider Internal Medicine; Emergency Provider Emergency Medicine; PCP Registered Nurse Diabetes Educator; Referring Provider Emergency Medicine; Visit Provider Orthopaedic Surgery Adult Reconstructive Orthopaedic Surgery
PROC: 0SR903A Replacement of Right Hip Joint with Ceramic Synthetic Substitute, Uncemented, Open Approach (ICD-10-PCS; CPT 27130; principal; 2023-04-18 15:30)
DX: S72.001A Fracture of unspecified part of neck of right femur, initial encounter for closed fracture (principal); F33.1 Major depressive disorder, recurrent, moderate; E78.5 Hyperlipidemia, unspecified; F17.210 Nicotine dependence, cigarettes, uncomplicated; W18.30XA Fall on same level, unspecified, initial encounter
CPT/HCPCS: 36415; 72192; 73502; 76000; 80048; 82310; 82962; 83735; 83970; 84703; 85007; 85025; 96374; 96375; 96376; 97116; 97162; 97530; 99285; C1776; J0131; J0690; J1100; J1170; J1885; J2250; J2405; J2704; J2765; J3475

== ENCOUNTER → 2023-05-20 14:10 | Outpatient (CLI) | payer OTHER, SELFPAY ==
[2023-04-18 01:29] VITALS: BMI 32.3
--- NOTE | 2023-05-20 | DI.MG.S_ITS ---
BILATERAL DIGITAL SCREENING MAMMOGRAM 3D/2D WITH CAD: 05/20/2023 CLINICAL: Routine screening. Comparison is made to exams dated: 05/09/2022 mammogram, 05/04/2021 mammogram, and 05/01/2020 mammogram - [facility]. Both breasts are heterogeneously dense, which may obscure small masses (category c / 51-75% glandular tissue). Current study was also evaluated with a Computer Aided Detection (CAD) system. There is an asymmetry in the left breast anterior depth lateral region seen on the craniocaudal view only. This is more prominent. No other significant masses, calcifications, or other findings are seen in either breast. IMPRESSION: INCOMPLETE: NEEDS ADDITIONAL IMAGING EVALUATION The asymmetry in the left breast is indeterminate. Additional views with possible ultrasound are recommended. Based on the Tyrer Cuzick model (a risk assessment model) the patient's lifetime risk is 12.5% and her 10 year risk is 2.3%. According to the ACR, ACS, and NCCN guidelines, an annual breast MRI exam along with mammogram is recommended if the patient's lifetime risk is 20% or greater. This exam was interpreted at Station ID: [id number]. NOTE: For mammograms, a report in lay terms will be sent to the patient. Approximately 15% of breast malignancies will not be visualized mammographically. In the management of a palpable breast mass, a negative mammogram must not discourage biopsy of a clinically suspicious lesion. Electronically Signed By: Valeriy Beaulieu M.D. lc/:05/21/2023 09:19:25 letter sent: Additional Imaging Needed ACR BI-RADS Category 0: Incomplete 3340F
--- NOTE | 2023-05-20 14:11 | DI.RAD.S_ITS ---
Bone Density Report Name: RHONDA PALACIO Age: 47 Sex: Female Ethnicity: White Date of : 1975 Indication: prior fracture; Referring Provider: NELLI BERKOWITZ Study: Bone densitometry was performed. Exam Date: May 20, 2023 Accession number: [id number] Bone Density: Region BMD T-score Z-score Classification AP Spine(L1-L4) 0.895 -0.9 Femoral Neck (Left) 0.624 -1.6 Total Hip (Left) 0.784 -1.0 Total Forearm (Left) 0.554 0.1 1/3 Forearm (Left) 0.583 -1.3 UD Forearm (Left) 0.455 0.6 World Health Organization criteria for BMD impression classify patients as: Normal (T-score at or above -1.0), Osteopenia (T-score between -1.0 and -2.5), or Osteoporosis (T-score at or below -2.5). 10-year Fracture Risk: FRAX not reported because: Premenopausal woman Prior hip or vertebral fracture Impression: The patient's bone mass is within expected range for age, gender and ethnicity. The patient has risk factors, including: previous fracture. Discussion: BONE DENSITY IS WITHIN EXPECTED LIMITS FOR AGE, SEX AND RACE. HISTORY OF FRACTURE. Although there is a predictable association between low bone mass and the risk of osteoporotic fractures in untreated postmenopausal women, there are no data relating bone density and fracture risk in younger women. The ISCD position is that the diagnosis of low bone mass or osteoporosis should not be made on densitometric criteria alone. WHO criteria only apply to postmenopausal women. Further evaluation should be considered given the patient's history of fracture at a young age. The patient should follow a healthful lifestyle (good nutrition with adequate calcium and vitamin D, and appropriate weight-bearing exercise). Follow-Up: Consider a repeat BMD and Vertebral Fracture Assessment (VFA) exam in 2 years or sooner if medically necessary, to reassess this patient's status. Reported by: JASON GILMORE M.D. on 05/20/2023 2:47:00 PM.
== END ==
PROVIDERS: PCP Registered Nurse Diabetes Educator; Referring Provider Registered Nurse Diabetes Educator; Visit Provider Registered Nurse Diabetes Educator
DX: Z87.310 Personal history of (healed) osteoporosis fracture (principal); S72.001D Fracture of unspecified part of neck of right femur, subsequent encounter for closed fracture with routine healing; N64.89 Other specified disorders of breast
CPT/HCPCS: 77063; 77067; 77080; 77081

== ENCOUNTER → 2023-05-30 12:13 | Outpatient (CLI) | payer OTHER, SELFPAY ==
[2023-04-18 01:29] VITALS: BMI 32.3
--- NOTE | 2023-05-30 12:18 | DI.MG.S_ITS ---
UNILATERAL LEFT DIGITAL DIAGNOSTIC MAMMOGRAM 3D/2D WITH ADDITIONAL VIEWS: 05/30/2023 CLINICAL: Additional evaluation requested from prior study. Comparison is made to exams dated: 05/20/2023 mammogram, 05/09/2022 mammogram, and 05/04/2021 mammogram - [facility]. The left breast is heterogeneously dense, which may obscure small masses (category c / 51-75% glandular tissue). There is a 0.5 cm oval mass with a circumscribed margin in the left breast lower outer quadrant at anterior depth. This corresponds to the asymmetry seen on recent screening mammogram. No other significant masses or calcifications are seen in the breast. IMPRESSION: INCOMPLETE: NEEDS ADDITIONAL IMAGING EVALUATION The 0.5 cm oval mass in the left breast is indeterminate. An ultrasound is recommended for further evaluation and is scheduled to immediately follow this examination. Based on the Tyrer Cuzick model (a risk assessment model) the patient's lifetime risk is 12.5% and her 10 year risk is 2.3%. According to the ACR, ACS, and NCCN guidelines, an annual breast MRI exam along with mammogram is recommended if the patient's lifetime risk is 20% or greater. This exam was interpreted at Station ID: [id number]. NOTE: For mammograms, a report in lay terms will be sent to the patient. Approximately 15% of breast malignancies will not be visualized mammographically. In the management of a palpable breast mass, a negative mammogram must not discourage biopsy of a clinically suspicious lesion. Electronically Signed By: Conchita Jose M.D., PH.D eb/:05/30/2023 13:31:40 ACR BI-RADS Category 0: Incomplete 3340F
--- NOTE | 2023-05-30 12:18 | DI.US.S_ITS ---
PROCEDURE: US BREAST LT LIMITED COMPARISON: None. INDICATIONS: ABNORMAL MAMMOGRAM FINDINGS: IMPRESSION: Dictated by: Conchita Jose M.D. on 06/02/2023 at 13:46 Approved by: Conchita Jose M.D. on 06/02/2023 at 13:52
--- NOTE | 2023-05-30 12:18 | DI.RAD.S_ITS ---
PROCEDURE: XR KNEE RT 3V INDICATIONS: eval bilateral knee pain TECHNIQUE: 3 views of the knee were acquired. COMPARISON: None. FINDINGS: Bones: No fractures or dislocations. Subtle bipartite inferolateral patella. No suspicious bony lesions. Soft tissues: No joint effusion. No suspicious soft tissue calcifications. IMPRESSION: No acute bony abnormality or significant effusion. Dictated by: Sita Spain M.D. on 05/30/2023 at 17:43 Approved by: Sita Spain M.D. on 05/30/2023 at 17:44
--- NOTE | 2023-05-30 12:18 | DI.RAD.S_ITS ---
PROCEDURE: XR KNEE LT 3V INDICATIONS: eval bilateral knee pain TECHNIQUE: 3 views of the knee were acquired. COMPARISON: None. FINDINGS: Bones: No fractures or dislocations. No suspicious bony lesions. Soft tissues: No joint effusion. No suspicious soft tissue calcifications. IMPRESSION: No acute bony abnormality or significant effusion. Dictated by: Sita Spain M.D. on 05/30/2023 at 17:43 Approved by: Sita Spain M.D. on 05/30/2023 at 17:43
--- NOTE | 2023-05-30 13:04 | DI.US.S_ITS ---
Patient Name: RHONDA PALACIO date: 1975 Sex: F Attending Physician: Avery Indications: Date: 06/02/2023 13:52 At the request of: NELLI BERKOWITZ Procedure: US breast LT limited LIMITED ULTRASOUND OF LEFT BREAST: 05/30/2023 CLINICAL: Patient returns today to evaluate a focal asymmetry in the left breast. Comparison is made to exams dated: 05/30/2023 mammogram, 05/20/2023 mammogram, 05/04/2021 mammogram, 05/09/2022 mammogram, 05/01/2020 mammogram - [facility], and 04/07/2020 ultrasound - outside location. Color flow and real-time ultrasound of the left breast 5-6 o'clock region were performed. There is a benign 0.6 cm simple cyst in the left breast at 5 o'clock, 4 cm from the nipple. The cysts corresponds to the mammographic mass. Incidental simple cyst at 6 o'clock, 2 cm from the nipple is seen. IMPRESSION: BENIGN Left breast simple cyst at 5 o'clock is benign. No mammographic of targeted sonographic evidence of malignancy. A 1 year screening mammogram is recommended. Findings and recommendations were conveyed to the patient during today's evaluation. This exam was interpreted at Station ID: [id number]. Electronically Signed By: Conchita Jose M.D., PH.D eb/:06/02/2023 13:52:04 Ultrasound BI-RADS: 2 Benign
== END ==
PROVIDERS: PCP Registered Nurse Diabetes Educator; Referring Provider Registered Nurse Diabetes Educator; Visit Provider Registered Nurse Diabetes Educator
DX: R92.8 Other abnormal and inconclusive findings on diagnostic imaging of breast (principal); M25.561 Pain in right knee; M25.562 Pain in left knee; G89.29 Other chronic pain; N60.02 Solitary cyst of left breast
CPT/HCPCS: 73562; 76642; 77065; G0279

== ENCOUNTER → 2023-07-18 18:46 | Outpatient (CLI) | payer OTHER, SELFPAY ==
[2023-04-18 01:29] VITALS: BMI 32.3
--- NOTE | 2023-07-18 | DI.MRI.S_ITS ---
PROCEDURE: MR HIP LT WO CON INDICATIONS: Pain in left hip TECHNIQUE: Noncontrast coronal T1 spin echo and STIR through the bony pelvis. Coronal and axial T2 fast spin echo with fat saturation, sagittal T1 spin echo, and oblique axial T2 fast spin echo with fat saturation through the hip. COMPARISON: [facility] [place], CR, XR PELVIS WITH BILATERAL LATERAL HIPS, 07/17/2023, 11:40. FINDINGS: Image quality: Excellent. Bones and joints: There is prior right total hip arthroplasty with significant susceptibility artifacts. Opyj-vv-tsillkid left hip joint osteoarthritis is seen with superior joint space narrowing, subchondral sclerosis and small marginal osteophyte formation. Mild marrow edema involving inferior aspect of left femoral neck near inter trochanteric region with subtle linear hypointense signal and mild periosteal reaction in this area. No other area of abnormal marrow signal. No intraosseous lesions or fractures. No avascular necrosis of the femoral heads. The visualized lower lumbar spine appears normally aligned. Tendons and ligaments: Low-grade partial-thickness tear involving distal left gluteus medius tendon at its insertion on greater trochanter is seen. Distal left gluteus minimus tendinosis is also seen. The nearby proximal iliotibial band also appears intact. The iliopsoas tendon appears intact, without adjacent bursal fluid collections or evidence for impingement syndrome. The origin of the hamstring tendon is intact at the ischial tuberosity, as well as the associated sacrotuberous ligament. Labrum and cartilage: There is subtle fraying of superior anterior labrum with T2 hyperintense signal at 12 to 1 o'clock position. Thinning of cartilage surface of the left femoral head is also seen. The alpha angle of the femur is within normal limits at less than 55 degrees. Soft tissues: Visualized muscles demonstrate normal bulk and internal signal. Quadratus femoris muscle demonstrates no internal edema to suggest ischiofemoral impingement. The proximal sciatic neurovascular bundle appears normal adjacent to the hamstring tendons. No free pelvic fluid. Bladder wall thickness is normal. Genitourinary structures and bowel loops appear normal where visualized. IMPRESSION: 1. Prior right total hip arthroplasty with susceptibility artifacts. Wewa-yz-intsuhgl left hip joint osteoarthritis. Marrow signal abnormality involving inferior aspect of left femoral neck/intertrochanteric region with subtle linear hypointense signal and periosteal reaction concerning for incomplete stress fracture in this area. No displaced hip fracture. No evidence of avascular necrosis of femoral head. 2. Low-grade partial-thickness tear involving distal left gluteus medius tendon at its insertion on greater trochanter. Distal gluteus minimus tendinosis. No other muscle or tendon signal abnormalities. 3. Finding is concerning for very subtle superior anterior left hip labral tear at 12 to 1 o'clock position. Dictated by: Eugene Pineda M.D. on 07/21/2023 at 9:43 Approved by: Eugene Pineda M.D. on 07/21/2023 at 9:47
== END ==
LOC: MRI 18:47
PROVIDERS: PCP Registered Nurse Diabetes Educator; Referring Provider Orthopaedic Surgery Adult Reconstructive Orthopaedic Surgery; Visit Provider Orthopaedic Surgery Adult Reconstructive Orthopaedic Surgery
DX: M16.12 Unilateral primary osteoarthritis, left hip (principal); S76.012A Strain of muscle, fascia and tendon of left hip, initial encounter; M25.552 Pain in left hip; Z96.641 Presence of right artificial hip joint
CPT/HCPCS: 73721

== ENCOUNTER → 2023-07-31 12:07 | Outpatient (CLI) | payer OTHER, SELFPAY ==
[2023-04-18 01:29] VITALS: BMI 32.3
[2023-07-31 12:59] LABS: Add Manual Diff / Slide Review NO; Basophils Absolute Auto 100 /uL (0-100); Basophils Percent Auto 0.7 % (0-2); Eosinophils Absolute Auto 100 /uL (0-450); Eosinophils Percent Auto 1.4 % (2-4); Hematocrit 31.5 % (36-46); Hemoglobin 9.9 g/dL (12.0-16.0); Lymphocytes Absolute Auto 1900 /uL (1100-4500); Mean Corpuscular HGB Conc 31.5 % (30-36); Mean Corpuscular Hemoglobin 21.1 PG (26-34); Monocytes Absolute Auto 700 /uL (0-900); Monocytes Percent Auto 7.7 % (3-14); Neutrophils Absolute Auto 6100 /uL (1500-7000); Neutrophils Percent Auto 69.2 % (50-75); Platelet Count 381 X10^3/uL (150-400); Red Blood Cell Count 4.71 X10^6/uL (4.0-5.2); Red Cell Distribution Width 19.1 % (11.6-14.8); White Blood Cell Count 8.8 X10^3/uL (4.5-11.0)
[2023-07-31 13:19] LABS: Anisocytosis 1+; Poikilocytosis 1+
[2023-07-31 13:42] LABS: Alanine Aminotransferase 20 IU/L (<35); Albumin 4.3 g/dL (3.5-5.0); Albumin Globulin Ratio 1.4 (1.0-2.8); Alkaline Phosphatase 108 U/L (38-126); Aspartate Aminotransferase 24 IU/L (14-36); BUN Creatinine Ratio 15.6 (6-22); Bilirubin Total 0.4 mg/dL (0.2-1.3); Blood Urea Nitrogen 10 mg/dL (7-17); Calcium 9.1 mg/dL (8.4-10.2); Carbon Dioxide 22 mmol/L (22-32); Chloride 107 mmol/L (98-107); Estimated Glomerular Filt Rate > 60 mL/min (>60); Globulin 3.1 g/dL (1.7-4.1); Glucose 85 mg/dL (70-100); Phosphorous 2.8 mg/dL (2.5-4.5); Sodium 138 mmol/L (137-145); Total Protein 7.4 g/dL (6.3-8.2)
[2023-07-31 13:56] LABS: Free T4, Direct Thyroxine 0.96 ng/dL (0.78-2.19)
[2023-07-31 14:00] LABS: HEMOLYSIS < 15 (0-50); Prolactin 12.2 ng/mL (3.0-18.6)
[2023-07-31 14:10] LABS: Thyroid Stimulating Hormone 1.87 uIU/mL (0.47-4.68)
[2023-07-31 15:44] LABS: Vitamin D 25 Hydroxy (D3) 44.6 ng/mL (30.0-100.0)
[2023-07-31 15:45] LABS: Follicle Stimulating Hormone 5.83 mIU/mL
[2023-07-31 16:01] LABS: Estradiol, Total 79.6 pg/mL
[2023-08-04 12:37] LABS: HEMOLYSIS < 15 (0-50); Iron 30 ug/dL (37-170)
[2023-08-04 12:47] LABS: Percent Iron Saturation 6 % (15-50); Total Iron Binding Capacity 466 ug/dL (265-497); Transferrin 362 mg/dL (206-381)
[2023-08-04 13:11] LABS: Ferritin 5 ng/mL (6-137)
[2023-08-05 18:21] LABS: Calcium 9.5 mg/dL (8.7-10.2); Parathyroid Hormone, Intact 49 pg/mL (15-65)
== END ==
PROVIDERS: PCP Registered Nurse Diabetes Educator; Referring Provider Registered Nurse Diabetes Educator; Visit Provider Registered Nurse Diabetes Educator
DX: S72.009A Fracture of unspecified part of neck of unspecified femur, initial encounter for closed fracture (principal); Z87.310 Personal history of (healed) osteoporosis fracture
CPT/HCPCS: 36415; 80053; 82306; 82310; 82670; 82728; 83001; 83002; 83540; 83550; 83970; 84100; 84146; 84439; 84443; 85025

== ENCOUNTER → 2023-08-02 11:43 | Outpatient (CLI) | payer OTHER, SELFPAY ==
[2023-04-18 01:29] VITALS: BMI 32.3
[2023-08-02 15:11] LABS: Calcium 24 Hour Urine 106 mg/day (100-300); Calcium Urine Random 6.6 mg/dL; Collection Time Urine 24 Hours; Total Volume Urine 1600 mL
[2023-08-02 15:12] LABS: Collection Time Urine 24 Hours; Creatinine 24 Hour Urine 962 mg/day (800-1800); Creatinine Urine Random 60.1 mg/dL; Total Volume Urine 1600 mL
== END ==
LOC: LAB 11:45
PROVIDERS: PCP Registered Nurse Diabetes Educator; Referring Provider Registered Nurse Diabetes Educator; Visit Provider Registered Nurse Diabetes Educator
DX: Z87.310 Personal history of (healed) osteoporosis fracture (principal); S72.009A Fracture of unspecified part of neck of unspecified femur, initial encounter for closed fracture
CPT/HCPCS: 82340; 82570

== ENCOUNTER → 2023-09-02 14:41 | Outpatient (CLI) | payer OTHER, SELFPAY ==
[2023-04-18 01:29] VITALS: BMI 32.3
[2023-09-02 15:12] LABS: Add Manual Diff / Slide Review NO; Basophils Absolute Auto 100 /uL (0-100); Basophils Percent Auto 1.6 % (0-2); Eosinophils Absolute Auto 200 /uL (0-450); Hematocrit 40.1 % (36-46); Hemoglobin 12.7 g/dL (12.0-16.0); Lymphocytes Absolute Auto 1800 /uL (1100-4500); Lymphocytes Percent Auto 24.2 % (25-40); Mean Corpuscular HGB Conc 31.7 % (30-36); Mean Corpuscular Hemoglobin 23.9 PG (26-34); Mean Corpuscular Volume 75.4 fL (80-100); Monocytes Absolute Auto 500 /uL (0-900); Monocytes Percent Auto 6.6 % (3-14); Neutrophils Absolute Auto 4900 /uL (1500-7000); Neutrophils Percent Auto 64.6 % (50-75); Platelet Count 269 X10^3/uL (150-400); Red Blood Cell Count 5.32 X10^6/uL (4.0-5.2); Red Cell Distribution Width 31.6 % (11.6-14.8); White Blood Cell Count 7.6 X10^3/uL (4.5-11.0)
[2023-09-02 15:25] LABS: HEMOLYSIS < 15 (0-50); Iron 41 ug/dL (37-170)
[2023-09-02 15:39] LABS: Percent Iron Saturation 12 % (15-50); Total Iron Binding Capacity 349 ug/dL (265-497); Transferrin 294 mg/dL (206-381)
[2023-09-02 15:52] LABS: Anisocytosis 4+; Microcytosis 2+; Platelet Estimate Adequate on smear; Poikilocytosis 2+
[2023-09-02 15:53] LABS: Hypochromasia 1+
[2023-09-02 16:30] LABS: Ferritin 13 ng/mL (6-137)
== END ==
PROVIDERS: PCP Registered Nurse Diabetes Educator; Referring Provider Registered Nurse Diabetes Educator; Visit Provider Registered Nurse Diabetes Educator
DX: D64.9 Anemia, unspecified (principal)
CPT/HCPCS: 36415; 82728; 83540; 83550; 85025; 85045

== ENCOUNTER → 2023-10-17 07:54 | Outpatient (CLI) | payer OTHER, SELFPAY ==
[2023-04-18 01:29] VITALS: BMI 32.3
[2023-10-17 10:00] LABS: Cortisol Random 1.13 ug/dL
[2023-10-18 20:36] LABS: Free Kappa Lt Chains, Serum 18.2 mg/L (3.3-19.4); Free Lambda Lt Chains,Serum 8.7 mg/L (5.7-26.3)
== END ==
PROVIDERS: PCP Registered Nurse Diabetes Educator
DX: S72.001S Fracture of unspecified part of neck of right femur, sequela (principal)
CPT/HCPCS: 36415; 82533; 83883; 84155; 84165

== ENCOUNTER → 2023-11-26 14:31 | Outpatient (CLI) | payer OTHER, SELFPAY ==
[2023-04-18 01:29] VITALS: BMI 32.3
[2023-11-26 15:39] LABS: Hematocrit 49.7 % (36-46); Hemoglobin 16.9 g/dL (12.0-16.0); Mean Corpuscular Hemoglobin 31.6 PG (26-34); Mean Corpuscular Volume 93.2 fL (80-100); Platelet Count 253 X10^3/uL (150-400); Red Blood Cell Count 5.34 X10^6/uL (4.0-5.2); Red Cell Distribution Width 14.3 % (11.6-14.8)
[2023-11-26 15:41] LABS: HEMOLYSIS 16 (0-50); Iron 161 ug/dL (37-170)
[2023-11-26 15:53] LABS: Percent Iron Saturation 50 % (15-50); Total Iron Binding Capacity 324 ug/dL (265-497); Transferrin 260 mg/dL (206-381)
[2023-11-26 16:18] LABS: Ferritin 24 ng/mL (6-137)
== END ==
PROVIDERS: PCP Registered Nurse Diabetes Educator; Referring Provider Registered Nurse Diabetes Educator; Visit Provider Registered Nurse Diabetes Educator
DX: E61.1 Iron deficiency (principal)
CPT/HCPCS: 36415; 82728; 83540; 83550; 85027

== ENCOUNTER → 2023-12-18 07:42 | Outpatient (CLI) | payer OTHER, SELFPAY ==
[2023-04-18 01:29] VITALS: BMI 32.3
--- NOTE | 2023-12-18 07:43 | DI.US.S_ITS ---
PROCEDURE: US PELVIC COMPLETE INDICATIONS: eval abnormal uterine bleeding TECHNIQUE: Real-time scanning was performed of the pelvic organs, with image documentation. Additional endovaginal scanning was necessary due to incomplete visualization of the adnexal and endometrial structures by transabdominal scanning. COMPARISON: [facility], CR, XR PELVIS WITH LATERAL HIP RIGHT, 10/13/2023, 10:04. [facility], , US PELVIC COMPLETE, 12/20/2020, 13:11. FINDINGS: Uterus: Uterus is anteverted and normal in size at 9.4 x 4.7 x 5.7 cm. The myometrium is heterogeneous. The endometrium measures 5.5 mm combined thickness. Ovaries: The right ovary measures 3.8 x 1.9 x 2.8 cm, with a calculated ovarian volume of 10.8 cc. The left ovary measures 2.2 x 1.6 x 1.8 cm, with a calculated ovarian volume of 3.3 cc. Focus of decreased echogenicity is present within the right ovary measuring 2.3 x 1.2 x 1.0 cm. Other: No pathologic free abdominal or pelvic fluid. IMPRESSION: 2.3 cm right ovarian cyst. We strive to produce accurate, complete, and clear reports of imaging services. To assist us in improving patient care, this report was composed using standard report templates and voice recognition software. Therefore, it may contain abnormal punctuation, insertions and/or omissions. Occasional wrong-word or sound-alike substitutions may occur. Though we review the report and make efforts to correct it, we do recommend that the report be read carefully in proper context to recognize any text inaccuracies. Dictated by: Neema Marino M.D. on 12/18/2023 at 12:36 Approved by: Neema Marino M.D. on 12/18/2023 at 12:37
== END ==
PROVIDERS: PCP Registered Nurse Diabetes Educator; Referring Provider Registered Nurse Diabetes Educator; Visit Provider Registered Nurse Diabetes Educator
DX: N93.9 Abnormal uterine and vaginal bleeding, unspecified (principal); N83.201 Unspecified ovarian cyst, right side
CPT/HCPCS: 76856

== ENCOUNTER 2023-12-18 22:42 | Emergency (ER) | payer OTHER, SELFPAY ==
[2023-04-18 01:29] VITALS: BMI 32.3
[2023-12-18 22:49] VITALS: BP 153/67; PULSE 87; RESP 16; TEMP 36; O2SAT 98; BMI 31.8
--- NOTE | 2023-12-18 22:51 | EKG_ITS ---
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
--- NOTE | 2023-12-18 23:17 | EKG_ITS ---
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
--- NOTE | 2023-12-18 23:17 | EKG_ITS ---
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
[2023-12-18 23:27] LABS: Add Manual Diff / Slide Review NO; Basophils Absolute Auto 100 /uL (0-100); Basophils Percent Auto 0.5 % (0-2); Eosinophils Absolute Auto 100 /uL (0-450); Eosinophils Percent Auto 0.7 % (2-4); Hematocrit 47.1 % (36-46); Hemoglobin 16.2 g/dL (12.0-16.0); Lymphocytes Absolute Auto 1300 /uL (1100-4500); Lymphocytes Percent Auto 8.6 % (25-40); Mean Corpuscular HGB Conc 34.5 % (30-36); Mean Corpuscular Hemoglobin 32.4 PG (26-34); Monocytes Absolute Auto 900 /uL (0-900); Monocytes Percent Auto 6.3 % (3-14); Neutrophils Absolute Auto 12400 /uL (1500-7000); Neutrophils Percent Auto 83.9 % (50-75); Platelet Count 276 X10^3/uL (150-400); Red Blood Cell Count 5.01 X10^6/uL (4.0-5.2); Red Cell Distribution Width 13.8 % (11.6-14.8); White Blood Cell Count 14.8 X10^3/uL (4.5-11.0)
[2023-12-18 23:34] LABS: Alanine Aminotransferase 25 IU/L (<35); Albumin 4.6 g/dL (3.5-5.0); Albumin Globulin Ratio 1.6 (1.0-2.8); Alkaline Phosphatase 121 U/L (38-126); Aspartate Aminotransferase 26 IU/L (14-36); BUN Creatinine Ratio 16.2 (6-22); Bilirubin Total 0.7 mg/dL (0.2-1.3); Blood Urea Nitrogen 11 mg/dL (7-17); Calcium 9.7 mg/dL (8.4-10.2); Carbon Dioxide 25 mmol/L (22-32); Chloride 105 mmol/L (98-107); Estimated Glomerular Filt Rate > 60 mL/min (>60); Globulin 2.9 g/dL (1.7-4.1); Glucose 118 mg/dL (70-100); HEMOLYSIS 17 (0-50); Lipase 63 U/L (23-300); Potassium 4.2 mmol/L (3.4-5.1); Sodium 135 mmol/L (137-145); Total Protein 7.5 g/dL (6.3-8.2)
[2023-12-19] VITALS (9 sets, daily range): BP systolic 133–176; BP diastolic 63–92; PULSE 72–92; RESP 17–19; TEMP 37; O2SAT 94–98
--- NOTE | 2023-12-19 01:33 | ED.ABDPAIN ---
HPI - Abdominal Pain General Chief Complaint: Abdominal Pain Stated Complaint: abd pain, moving to back Time Seen by Provider: 12/19/23 01:02 Source: patient Mode of arrival: Ambulatory History of Present Illness HPI narrative: 48-year-old female had gallbladder removed fall 2022, now with epigastric central abdominal discomfort since 3:30 p.m. today, tried Gas-X no help, feels somewhat like her previous gallbladder related pain, concerned she might have acid reflux, still persisting. She denies flank pain, denies dysuria, denies frequency of urination or change in urine color. No injury or trauma new activities. No nausea or vomiting, no black or red or loose stools. She has not had any cough, chest pain, shortness of breath. Related Data Home Medications Medication Instructions Recorded Confirmed multivitamin 1 tab PO ONCE PM 02/16/18 11/26/23 cholecalciferol (vitamin D3) 1 tab PO ONCE PM 11/21/20 04/18/23 magnesium glycinate 100 mg tablet 300 mg PO ONCE PM 11/21/20 11/26/23 citalopram 40 mg tablet (Celexa) 40 mg PO ONCE PM 06/13/22 11/26/23 lamotrigine 25 mg tablet 25 mg PO ONCE PM 06/13/22 11/26/23 Fish Oil 1,800 mg PO ONCE PM 03/19/23 11/26/23 Arleth 150mg & l theanine 150mg 150 mg PO ONCE PM 03/19/23 11/26/23 ashwagandha root extract 300 mg 300 mg PO DAILY 03/19/23 11/26/23 capsule alprazolam 0.25 mg tablet 0.25 mg PO DAILY 04/16/23 11/26/23 bupropion HCl 150 mg tablet,12 hr 150 mg PO BID 11/26/23 11/26/23 sustained-release hydroxyzine pamoate 25 mg capsule 25 mg PO BID 11/26/23 11/26/23 Previous Rx's Medication Instructions Recorded ondansetron 4 mg disintegrating 4 mg PO Q6H PRN nausea and 04/19/23 tablet vomiting #30 tabs norethindrone (contraceptive) 0.35 0.35 mg PO DAILY #84 tabs 08/04/23 mg tablet ferrous sulfate 325 mg (65 mg 325 mg PO Q OTHER DAY #45 tabs 11/27/23 iron) tablet cefdinir 300 mg capsule 300 mg PO BID 10 days #20 caps 12/19/23 Allergies Allergy/AdvReac Type Severity Reaction Status Date / Time Sulfa (Sulfonamide Allergy Intermediate Hives Verified 12/18/23 22:51 Antibiotics) Review of Systems Review of Systems Narrative: As per HPI Patient History Medical History History of healed fragility fracture Gallbladder colic Cholelithiasis Cholelithiasis Current smoker PMDD (premenstrual dysphoric disorder) Depression (~2012) Human papilloma virus (~2003) Abnormal Pap smear of cervix (~2003) Impaired fasting blood sugar Dyslipidemia Anxiety (~2012) Surgical History Anesthesia History of foot surgery (~07/2013) History of breast surgery (~2006) History of biopsy (~2009) History of History of tonsillectomy (~1982) Family History Father History of heart disease Hypertension Mother Hypertension Mental health problem Sister Mental health problem Grandfather Hypertension Grandmother Hyperlipidemia Hypertension Mental health problem Grandfather Cancer Grandmother Hypertension Social History household members: spouse and children Smoking Status: Current every day smoker Tobacco: How many years used: 20 alcohol intake: former substance use type: marijuana Smoking Status: Current every day smoker tobacco type: cigarettes alcohol intake frequency: holidays/special occasions only Substance Use Type: does not use Exam Narrative Exam Narrative: GENERAL: Well-developed patient, in mild distress. HEAD: Atraumatic. Normocephalic. EYES: Pupils equal round and reactive. Extraocular motions intact. No scleral icterus. No injection or drainage. ENT: Nose without bleeding, purulent drainage. Throat without erythema, tonsillar hypertrophy or exudate. Airway patent. NECK: Trachea midline. Non tender CARDIOVASCULAR: Regular rate and rhythm without murmurs, gallops, or rubs. RESPIRATORY: Clear to auscultation. Breath sounds equal bilaterally. No wheezes, rales, or rhonchi. GASTROINTESTINAL: Supraumbilical epigastric area mild discomfort, no guarding or rebound, no obvious fluid wave, unremarkable bowel tones. EXTREMITIES: No edema or joint tenderness. BACK: Nontender without deformity or crepitance. No flank tenderness. NEURO: AOx3. SKIN: No rash or erythema of visible areas Initial Vital Signs Initial Vital Signs: Vital Signs Temperature 96.8 F L 12/18/23 22:49 Pulse Rate 87 12/18/23 22:49 Respiratory Rate 16 12/18/23 22:49 Blood Pressure 153/67 H 12/18/23 22:49 Pulse Oximetry 98 12/18/23 22:49 Oxygen Delivery Method Room Air 12/18/23 22:49 Course Orders Ordered: ED Orders 12/18/23 22:51 EKG-12 Lead Stat 12/18/23 23:14 Complete Blood Count AUTO DIFF Stat Comprehensive Metabolic Panel Stat Lipase Stat 12/19/23 01:15 Ictotest Urine Stat Urinalysis and Microscopic Stat Urine Culture Stat Discontinued Medications Cefdinir (Cefdinir 300 Mg Capsule) 300 mg PO NOW ONE Stop: 12/19/23 02:40 Last Admin: 12/19/23 03:17 Dose: 300 mg Documented By: MORGAN Al Hydrox/Mg Hydrox/Simethicone 20 ml/ Lidocaine HCl 15 ml 0 ml PO NOW ONE Stop: 12/19/23 01:58 Last Admin: 12/19/23 02:03 Dose: 25 ml Documented By: JANE Ondansetron HCl (Ondansetron 4 Mg/2 Ml Inj) 4 mg IV NOW PRN PRN Reason: Nausea And Vomiting Ondansetron HCl (Ondansetron 4 Mg Odt) 4 mg PO NOW PRN PRN Reason: Nausea And Vomiting Ondansetron HCl (Ondansetron 4 Mg Odt) 4 mg SL NOW ONE Stop: 12/19/23 03:17 Last Admin: 12/19/23 03:31 Dose: 4 mg Documented By: MORGAN Vital Signs Vital signs: Vital Signs - 8 hr 12/19/23 00:46 12/19/23 00:52 12/19/23 01:00 Temperature 98.6 F Pulse Rate 78 85 87 Respiratory Rate 17 18 Blood Pressure 136/63 142/78 H Pulse Oximetry 96 96 94 Oxygen Delivery Method Room Air Room Air 12/19/23 01:46 12/19/23 02:00 12/19/23 02:00 Temperature Pulse Rate 80 78 Respiratory Rate Blood Pressure 133/73 Pulse Oximetry 97 96 Oxygen Delivery Method 12/19/23 02:30 12/19/23 02:30 12/19/23 03:13 Temperature Pulse Rate 88 72 Respiratory Rate Blood Pressure 140/83 Pulse Oximetry 97 95 Oxygen Delivery Method 12/19/23 03:20 12/19/23 03:24 12/19/23 03:24 Temperature Pulse Rate 92 H Respiratory Rate 19 Blood Pressure 176/92 H Pulse Oximetry 98 Oxygen Delivery Method MDM - Abdominal Pain Lab Data Attestation: I reviewed the patient's lab results. Lab results narrative: HCG negative, white blood cell count 19359, hemoglobin 16, unremarkable CMP. Lipase normal. Urine dip positive, urinalysis requested. 12/18/23 23:14 12/18/23 23:14 Labs: Lab Results 12/18/23 12/19/23 Range/Units 23:14 01:15 WBC 14.8 H (4.5-11.0) X10^3/uL RBC 5.01 (4.0-5.2) X10^6/uL Hgb 16.2 H (12.0-16.0) g/dL Hct 47.1 H (36-46) % MCV 94.0 (80-100) fL MCH 32.4 (26-34) PG MCHC 34.5 (30-36) % RDW 13.8 (11.6-14.8) % Plt Count 276 (150-400) X10^3/uL Neut % (Auto) 83.9 H (50-75) % Lymph % (Auto) 8.6 L (25-40) % [place] % (Auto) 6.3 (3-14) % Eos % (Auto) 0.7 L (2-4) % Baso % (Auto) 0.5 (0-2) % Neut # (Auto) 26862 H (2477-5111) /uL Lymph # (Auto) 1300 (3484-3107) /uL [place] # (Auto) 900 (0-900) /uL Eos # (Auto) 100 (0-450) /uL Baso # (Auto) 100 (0-100) /uL Sodium 135 L (137-145) mmol/L Potassium 4.2 (3.4-5.1) mmol/L Chloride 105 (98-107) mmol/L Carbon Dioxide 25 (22-32) mmol/L BUN 11 (7-17) mg/dL Creatinine 0.68 (0.52-1.04) mg/dL Estimated GFR > 60 (>60) mL/min BUN/Creatinine Ratio 16.2 (6-22) Glucose 118 H (70-100) mg/dL Calcium 9.7 (8.4-10.2) mg/dL Total Bilirubin 0.7 (0.2-1.3) mg/dL AST 26 (14-36) IU/L ALT 25 (<35) IU/L Alkaline Phosphatase 121 (38-126) U/L Total Protein 7.5 (6.3-8.2) g/dL Albumin 4.6 (3.5-5.0) g/dL Globulin 2.9 (1.7-4.1) g/dL Albumin/Globulin Ratio 1.6 (1.0-2.8) Lipase 63 (23-300) U/L Urine Color Yellow Urine Appearance Sl cloudy Urine pH 6.5 (4.5-8.0) Ur Specific [place] 1.020 (1.000-1.035) Urine Protein 1+ H (Negative) Urine Glucose (UA) Negative (Negative) g/dL Urine Ketones 3+ H (NEGATIVE) Urine Occult Blood Trace-intact (Negative) Urine Nitrate Negative (Negative) Urine Bilirubin 1+ H (NEGATIVE) Ur Bilirubin Confirm Negative (Negative) Urine Urobilinogen 1.0 (0.2) E.U./dL Ur Leukocyte Esterase Trace H (NEGATIVE) Urine RBC 0-1/hpf (0-5/HPF) Urine WBC 0-1/hpf (0-5/HPF) Ur Squamous Epith Cells >30 /hpf H D (0-5/HPF) Amorphous Sediment 1+ Urine Bacteria Moderate (10-30) H (None) Urine Mucus 1+ H (Negative) Ur Culture Indicated? Cult not indicated Vol Urine Centrifuged 10ml (spun) Point of care testing: Point of Care Testing Test Results Negative Urine Dip Bedside Urine Glucose Negative Bedside Urine Bilirubin - Negative Urine Specific [place] 1.02 Bedside Urine Occult Blood +/- Bedside Urine pH 6 Bedside Urine Protein + 30 Bedside Urine Urobilinogen - Negative Bedside Urine Nitrite - Negative Bedside Urine Leukocytes +/- 15 Esterase ECG Data Attestation: I personally reviewed and interpreted this ECG as follows: Interpretation: Normal sinus rhythm with a rate of 74, no obvious ST segment elevation or depression changes. PA 126, QRS 94, QTC 428. MDM Narrative Medical decision making narrative: 48-year-old female status post prior remote cholecystectomy, epigastric discomfort, no injury trauma, afebrile, sirs screen negative, mild epigastric tenderness, no guarding or rebound. White blood cell count 99905 noted, unremarkable other studies including CMP. Urine dip positive, urinalysis requested. GI cocktail trial Urinalysis shows pyuria, and bacteriuria, urine culture sent. P.o. cefdinir dose given in ED, prescription sent to pharmacy. Some improvement with GI cocktail, consider antacid [id number] on discharge Improved, discharged home, oral antibiotic prescription cefdinir for UTI sent to her pharmacy Critical Care Time Critical Care Time Total Critical Care Time: 31 Attestation: The high probability of a clinically significant, sudden or life threatening deterioration of the [genitourinary, abdominal pelvic] system(s) required my full and direct attention, intervention and personal management. The aggregate critical care time was [31] minutes. This time is in addition to time spent performing reported procedures but includes the following: [x] Data Review and interpretation [x] Patient assessment and monitoring of vital signs [x] Documentation [x] Medication orders and management Discharge Plan Departure Patient Disposition: Home Clinical Impression: Abdominal pain, Urinary tract infection Instructions: DI for Urinary Tract Infection (UTI), DI for Abdominal Pain-Adult Activity Restrictions/Additional Instructions: Central abdominal discomfort, somewhat atypical location for urinary tract infection. Urinalysis however was suspicious for infection, with inflammatory cells and bacteria present, urine culture was requested, 1st dose antibiotic cefdinir given, prescription for further antibiotic course. GI cocktail antacid was also given, consider use of [id number] antacid such as Pepcid/famotidine. Recheck symptoms with your regular provider on Friday, check results of urine culture to see if any antibiotic changes necessary. Return to this/nearest emergency department for any change worsening symptoms or any concerns prior Prescriptions: New cefdinir 300 mg capsule 300 mg PO BID 10 Days Qty: 20 0RF No Action ferrous sulfate 325 mg (65 mg iron) tablet 325 mg PO Q OTHER DAY Qty: 45 0RF Rx Instructions: PLEASE STOP SUPPLEMENT FOR 1 MONTH THEN RESUME AT THIS DOSING FREQUENCY citalopram [Celexa] 40 mg tablet 40 mg PO ONCE PM lamotrigine 25 mg tablet 25 mg PO ONCE PM norethindrone (contraceptive) 0.35 mg tablet 0.35 mg PO DAILY Qty: 84 3RF bupropion HCl 150 mg tablet sustained-release 12 hr 150 mg PO BID hydroxyzine pamoate 25 mg capsule 25 mg PO BID cholecalciferol (vitamin D3) 1 tab PO ONCE PM magnesium glycinate 100 mg tablet 300 mg PO ONCE PM Arleth 150mg & l theanine 150mg 150 mg PO ONCE PM Fish Oil 1,800 mg PO ONCE PM ashwagandha root extract 300 mg capsule 300 mg PO DAILY alprazolam 0.25 mg tablet 0.25 mg PO DAILY multivitamin Tablet 1 tab PO ONCE PM ondansetron 4 mg tablet,disintegrating 4 mg PO Q6H PRN (Reason: nausea and vomiting) Qty: 30 0RF Referrals: Jamie Varela ARNP [Primary Care Provider] - Stand Alone Forms: Patient Portal/API
[2023-12-19 01:54] LABS: Appearance Urine UA SL CLOUDY; Bilirubin Urine UA 1+ (NEGATIVE); Color Urine UA YELLOW; Glucose Urine UA NEGATIVE (Negative); Ketones Urine UA 3+ (NEGATIVE); Leukocyte Esterase Urine UA TRACE (NEGATIVE); Nitrite Urine UA NEGATIVE (Negative); Occult Blood Urine UA TRACE-INTACT (Negative); Protein Urine UA 1+ (Negative)
[2023-12-19 01:57] LABS: pH Urine UA 6.5 (4.5-8.0)
[2023-12-19 02:01] LABS: Bacteria Urine Moderate (10-30); Ictotest Urine Negative (Negative); RBC Urine 0-1/HPF (0-5/HPF); Urine Volume 10mL (spun); WBC Urine 0-1/HPF (0-5/HPF)
[2023-12-19 02:02] LABS: Amorphous Sediment Urine 1+; Culture Indicated Urine Cult Not Indicated; Mucus Urine 1+ (Negative); Squamous Epithelial Cell Urine >30 /HPF (0-5/HPF)
[2023-12-19] MEDS: MAG HYDROX/ALUMINUM/SIMETH SUS 20 ML, LIDOCAINE VISCOUS 2% 15 ML PO (02:03)
[2023-12-19] MEDS: CEFDINIR 300 MG CAPSULE PO (03:17)
[2023-12-19] MEDS: ONDANSETRON 4 MG ODT SL (03:31)
== END 2023-12-19 03:35 | disposition home or self-care (01) ==
PROVIDERS: Emergency Provider Emergency Medicine; PCP Registered Nurse Diabetes Educator
DX: R10.13 Epigastric pain (principal); N39.0 Urinary tract infection, site not specified; N39.9 Disorder of urinary system, unspecified; N83.201 Unspecified ovarian cyst, right side
CPT/HCPCS: 36415; 76856; 80053; 81001; 81003; 81025; 83690; 85025; 87086; 93005; 99284

== ENCOUNTER → 2024-06-18 13:20 | Outpatient (CLI) | payer OTHER, SELFPAY ==
[2023-04-18 01:29] VITALS: BMI 32.3
--- NOTE | 2024-06-18 13:21 | DI.MG.S_ITS ---
BILATERAL DIGITAL SCREENING MAMMOGRAM 3D/2D WITH CAD: 06/18/2024 CLINICAL: Routine screening. Comparison is made to exams dated: 05/20/2023 mammogram, 05/09/2022 mammogram, and 05/04/2021 mammogram - [facility]. The breasts are heterogeneously dense, which may obscure small masses (category c / 51-75% glandular tissue). Current study was also evaluated with a Computer Aided Detection (CAD) system. There are benign post operative findings in the right breast. No significant masses, calcifications, or other findings are seen in either breast. There has been no significant interval change. IMPRESSION: BENIGN There is no mammographic evidence of malignancy. A 1 year screening mammogram is recommended. Based on Tyrer-Cuzick model (a risk assessment model), the patient's lifetime risk is 23.8% and her 10 year risk is 5.1%. If a patient has an elevated risk, a more comprehensive evaluation should be considered and/or a referral to a genetic counselor. The [employer], [employer], and NCCN Guidelines advise the consideration of Breast MRI as an adjunct to screening mammography in patients whose Lifetime risk to develop breast cancer is 20% or higher. This exam was interpreted at Station ID: [id number]. NOTE: For mammograms, a report in lay terms will be sent to the patient. Approximately 15% of breast malignancies will not be visualized mammographically. In the management of a palpable breast mass, a negative mammogram must not discourage biopsy of a clinically suspicious lesion. Electronically Signed By: Conchita Jose M.D., Ph.D. charlene/delores:06/21/2024 04:44:35 letter sent: Normal Exam ACR BI-RADS Category 2: Benign
== END ==
PROVIDERS: PCP Registered Nurse Diabetes Educator; Referring Provider Registered Nurse Diabetes Educator; Visit Provider Registered Nurse Diabetes Educator
DX: Z12.31 Encounter for screening mammogram for malignant neoplasm of breast (principal); R92.333 Mammographic heterogeneous density, bilateral breasts
CPT/HCPCS: 77063; 77067

== ENCOUNTER → 2024-06-21 13:14 | Outpatient (CLI) | payer OTHER, SELFPAY ==
[2023-04-18 01:29] VITALS: BMI 32.3
[2024-06-21 14:56] LABS: Occult Blood 1 Negative (Negative); Occult Blood 2 Negative (Negative); Occult Blood 3 Negative (Negative)
== END ==
PROVIDERS: PCP Registered Nurse Diabetes Educator; Referring Provider Registered Nurse Diabetes Educator; Visit Provider Registered Nurse Diabetes Educator
DX: D64.9 Anemia, unspecified (principal)
CPT/HCPCS: 82270

== ENCOUNTER → 2024-08-31 16:02 | Outpatient (CLI) | payer OTHER, SELFPAY ==
[2024-08-25 15:04] VITALS: BMI 32.3
[2024-08-31 17:50] LABS: Add Manual Diff / Slide Review NO; Basophils Absolute Auto 100 /uL (0-100); Basophils Percent Auto 0.7 % (0-2); Eosinophils Absolute Auto 100 /uL (0-450); Eosinophils Percent Auto 1.2 % (2-4); Hematocrit 45.8 % (36-46); Hemoglobin 15.6 g/dL (12.0-16.0); Lymphocytes Absolute Auto 2200 /uL (1100-4500); Lymphocytes Percent Auto 23.5 % (25-40); Mean Corpuscular HGB Conc 34.1 % (30-36); Mean Corpuscular Hemoglobin 32.2 PG (26-34); Mean Corpuscular Volume 94.5 fL (80-100); Monocytes Absolute Auto 800 /uL (0-900); Neutrophils Absolute Auto 6300 /uL (1500-7000); Neutrophils Percent Auto 66.6 % (50-75); Platelet Count 248 X10^3/uL (150-400); Red Blood Cell Count 4.84 X10^6/uL (4.0-5.2); Red Cell Distribution Width 13.6 % (11.6-14.8); White Blood Cell Count 9.5 X10^3/uL (4.5-11.0)
[2024-08-31 17:57] LABS: Appearance Urine UA CLEAR; Bilirubin Urine UA NEGATIVE (NEGATIVE); Color Urine UA YELLOW; Glucose Urine UA NEGATIVE (Negative); Ketones Urine UA 1+ (NEGATIVE); Leukocyte Esterase Urine UA NEGATIVE (NEGATIVE); Nitrite Urine UA NEGATIVE (Negative); Occult Blood Urine UA NEGATIVE (Negative); Protein Urine UA NEGATIVE (Negative); Specific Gravity Urine UA 1.025 (1.000-1.035); Urobilinogen Urine UA 0.2 E.U./dL (0.2)
[2024-08-31 18:00] LABS: pH Urine UA 5.5 (4.5-8.0)
[2024-08-31 18:10] LABS: Alanine Aminotransferase 21 IU/L (<35); Albumin 4.6 g/dL (3.5-5.0); Albumin Globulin Ratio 1.6 (1.0-2.8); Alkaline Phosphatase 107 U/L (38-126); Aspartate Aminotransferase 25 IU/L (14-36); BUN Creatinine Ratio 10.3 (6-22); Bilirubin Total 0.5 mg/dL (0.2-1.3); Blood Urea Nitrogen 7 mg/dL (7-17); Calcium 9.4 mg/dL (8.4-10.2); Carbon Dioxide 18 mmol/L (22-32); Chloride 106 mmol/L (98-107); Estimated Glomerular Filt Rate > 60 mL/min (>60); Globulin 2.8 g/dL (1.7-4.1); Glucose 87 mg/dL (70-100); HEMOLYSIS < 15 (0-50); Lipase 110 U/L (23-300); Potassium 3.9 mmol/L (3.4-5.1); Sodium 135 mmol/L (137-145); Total Protein 7.4 g/dL (6.3-8.2)
[2024-08-31 18:14] LABS: HEMOLYSIS < 15 (0-50); Iron 109 ug/dL (37-170)
[2024-08-31 18:16] LABS: Urine Volume 10mL (spun)
[2024-08-31 18:17] LABS: Bacteria Urine Few (2-10); Culture Indicated Urine Specimen Cultured; RBC Urine 0-1/HPF (0-5/HPF); Squamous Epithelial Cell Urine 10-30 /HPF (0-5/HPF); WBC Urine 0-1/HPF (0-5/HPF)
[2024-08-31 18:26] LABS: Percent Iron Saturation 34 % (15-50); Total Iron Binding Capacity 324 ug/dL (265-497); Transferrin 265 mg/dL (206-381)
[2024-08-31 18:45] LABS: Ferritin 11 ng/mL (6-137)
== END ==
LOC: LAB 16:04
PROVIDERS: PCP Registered Nurse Diabetes Educator; Referring Provider Registered Nurse Diabetes Educator; Visit Provider Registered Nurse Diabetes Educator
DX: R10.13 Epigastric pain (principal)
CPT/HCPCS: 36415; 80053; 81001; 82728; 83540; 83550; 83690; 85025; 87086

== ENCOUNTER → 2024-10-06 07:22 | Outpatient (CLI) | payer OTHER, SELFPAY ==
[2024-08-25 15:04] VITALS: BMI 32.3
--- NOTE | 2024-10-06 07:23 | DI.US.S_ITS ---
PROCEDURE: US ABDOMEN LIMITED INDICATIONS: eval RUQ and epigastric pain TECHNIQUE: Real-time scanning was performed of the abdominal and retroperitoneal organs, with image documentation. COMPARISON: [facility], US, US ABDOMEN LIMITED, 02/12/2023, 2:44. FINDINGS: Liver: Liver is normal in size and homogeneous in echotexture. Gallbladder: Absent. Biliary ducts: Intrahepatic bile ducts are non-dilated. Extrahepatic bile duct caliber measures 5 mm. Normal is 6-7 mm or less in diameter, or 10 mm or less post-cholecystectomy. Pancreas: Visualized portions of the pancreas are sonographically normal. Miscellaneous: No free abdominal fluid. IMPRESSION: Normal right upper quadrant ultrasound. Cholecystectomy without biliary dilation or liver pathology. Dictated by: Jimmie Shafer M.D. on 10/06/2024 at 9:15 Approved by: Jimmie Shafer M.D. on 10/06/2024 at 9:17
== END ==
LOC: US 07:22
PROVIDERS: PCP Registered Nurse Diabetes Educator; Referring Provider Registered Nurse Diabetes Educator; Visit Provider Registered Nurse Diabetes Educator
DX: R10.11 Right upper quadrant pain (principal); Z90.49 Acquired absence of other specified parts of digestive tract
CPT/HCPCS: 76705

== ENCOUNTER → 2024-10-25 08:38 | Outpatient (CLI) | payer OTHER, SELFPAY ==
[2024-08-25 15:04] VITALS: BMI 32.3
[2024-10-29 00:11] LABS: Almond IgE <0.10 kU/L (Class 0); Cashew Nut IgE <0.10 kU/L (Class 0); Codfish Allergy IgE < 0.10 kU/L (Class 0); Egg White IgE <0.10 kU/L (Class 0); Hazelnut IgE <0.10 kU/L (Class 0); Milk IgE <0.10 kU/L (Class 0); Peanut IgE <0.10 kU/L (Class 0); Salmon Allergy IgE < 0.10 kU/L (Class 0); Scallop Allergy IgE < 0.10 kU/L (Class 0); Sesame seed Allergy IgE < 0.10 kU/L (Class 0); Shrimp IgE <0.10 kU/L (Class 0); Soybean IgE <0.10 kU/L (Class 0); Tuna Allergy IgE < 0.10 kU/L (Class 0); Walnut IgE <0.10 kU/L (Class 0); Wheat Allergy IgE < 0.10 kU/L (Class 0)
[2024-10-29 19:38] LABS: Deamidated Gliadin Ab IgA 3 units (0-19); Deamidated Gliadin Ab IgG 1 units (0-19); Immunoglobulin A,Qn 82 mg/dL (87-352); t-Transglutaminase IgA <2 U/mL (0-3)
== END ==
PROVIDERS: PCP Registered Nurse Diabetes Educator; Referring Provider Registered Nurse Diabetes Educator; Visit Provider Registered Nurse Diabetes Educator
DX: R10.13 Epigastric pain (principal)
CPT/HCPCS: 36415; 82784; 83516; 86003

== ENCOUNTER → 2024-12-09 08:19 | Outpatient (CLI) | payer OTHER, SELFPAY ==
[2024-08-25 15:04] VITALS: BMI 32.3
[2024-12-10 04:36] LABS: IGA 79 mg/dL (87-352); IGG 740 mg/dL (586-1602); IGM 125 mg/dL (26-217)
== END ==
PROVIDERS: PCP Registered Nurse Diabetes Educator; Referring Provider Registered Nurse Diabetes Educator; Visit Provider Registered Nurse Diabetes Educator
DX: D80.9 Immunodeficiency with predominantly antibody defects, unspecified (principal)
CPT/HCPCS: 36415; 82784